=== PATIENT | male | born 1940 | race Caucasian/White ===

== ENCOUNTER 2022-05-01 11:22 | Inpatient (IN) ==
--- NOTE | 2022-05-01 11:27 | Emergency Department Note ---
Impression & Plan Intertrochanteric fracture of left femur, Hypertension, Fall, Acute hip pain ED Provider Note NAME: GABRIEL ALVARADO AGE: 81 SEX: M : 1940 ARRIVES VIA: Ambulance INFORMANT: Patient, ED PROVIDER(S): Oli Felder MD Chief Complaint: Fall, hip pain HPI: Patient presents due to concern for fall and hip pain. The patient states that this occurred earlier today where he had been working was putting ladders o nto his vehicle and when he turned around he believes that his foot may have got caught on something and then fell to his left side. The patient denies any head strike or LOC. The patient was unable to get up or ambulate after the fall. The patient denies any prior history of any orthopedic surgery. Patient has no chest pain head neck back or abdominal pain. No nausea vomiting. The patient d oes not take any blood thinning medications. The patient did not take any thing for pain prior to arrival. The patient does have pain localized to the hip and proximal thigh. Patient states he has decreased range of motion secondary to pain. ROS: See HPI for pertinent positives and negatives. A total of 10 systems were reviewed and otherwise negative. Past medical history: See below Surgical history: See below Social history: See below Physical Exam: GENERAL: NAD, wearing a mask, non-toxic. EYE EXAM: Normal conjunctiva. PERRL, no anisocoria and EOM's grossly intact w/o pain. Head: Normocephalic atraumatic. NECK: Supple, no nuchal rigidity, no adenopathy, non-tender. No signs of me ningismus. FROM of the neck with good chin to chest and neck extension. No stridor. No midline cervical spine TTP. LUNGS: Clear to auscultation. Normal chest wall mechanics. HEART: NSR, no MRG. ABDOMEN: Abdomen soft, non-tender, normo-active bowel sounds, no masses, no rebound or guarding. BACK: No CVA TTP. SKIN: No rashes and no bruising. UPPER EXTREMITIES: Upper extremities are grossly normal. No TTP or obvious deformity. LOWER EXTREMITIES: Increased welling to the left proximal thigh with associated TTP, mild leg length discrepancy with left leg slightly shorter than the right, good DP pulse and neurovascular intact distally to SP DP and tibialis nerves. Wiggles toes with no issue. No right lower extremity TTP NEURO EXAM: A&O x3, cranial nerves II-XII grossly intact, normal speech, moves all 4 extremities. Differential diagnoses: Fracture, subluxation, dislocation, contusion, lig amentous injury, neurovascular, compartment syndrome, rhabdomyolysis, as well as other pathologies. Course: Patient was seen and evaluated the bedside. Full history physical exam was performed. EKG interpreted by me Sinus bradycardia with first-degree AV block, rate 56, prolonged MN, normal QRS, normal axis no ST elevations. Imaging Studies: See Below Cardiac monitoring: An order was placed for continuous cardiac monitoring. The monitor shows a rate of 62 with sinus rhythm. MDM: Patient presents due to concern for a fall. The patient does have a likely hip fracture. Blood work was obtained and the patient was ordered IV pain medication. Patient was noted to have a left-sided hip fracture. I did speak with Dr. Shelby with [facility] to make him aware that the pat ient would be admitted for his hip fracture. I did speak the on-call hospitalist service Sweta Jones PA-C and the patient was admitted by Dr. Maria. Of note the patient did have desaturations into the 70s with the morphine. Patient maintained good saturations on 2 L nasal cannula the patient still wanted something for pain and was given IV Tylenol. Past Med/Surg History Medical History Dyslipidemia History of CVA (cerebrovascular accident) History of PSVT (paroxysmal supraventricular tachycardia) Hx of aortic valve stenosis Hypertension Paroxysmal A-fib Surgical History No pertinent past surgical history Social History Smoking Status: Never smoker Hx Alcohol Use: Yes Alcohol type: beer Hx Substance Use: No Preferred Language: Swiss Communication Ability: Effective Weight Analyst Required: No Beliefs That Will Affect Care: None Current Living Situation: Spouse Feels Safe at Home: Yes Assistive Devices: Denture - Upper and Denture - Lower Allergies Allergies Allergy/AdvReac Type Severity Reaction Status Date / Time No Known Allergies Allergy Verified 12/12/20 08:55 Home Meds Home Medications Medication Instructions Recorded Confirmed atorvastatin 20 mg tablet 20 mg PO DAILY 12/12/20 05/01/22 hydrochlorothiazide 12.5 mg tablet 12.5 mg PO DAILY 12/12/20 05/01/22 multivitamin 1 tab DAILY 12/12/20 05/01/22 L.acidophil-L.casei-B.bifid-B.longum-FOS 1 cap PO DAILY 05/01/22 05/01/22 2 billion cell-50 mg capsule (Probiotic Blend) amoxicillin 500 mg capsule 2,000 mg PO UD PRN Other 05/01/22 05/01/22 aspirin 81 mg tablet,delayed 81 mg PO DAILY 05/01/22 05/01/22 release losartan 50 mg tablet 50 mg PO DAILY 05/01/22 05/01/22 metoprolol tartrate 25 mg tablet 12.5 mg PO DAILY 05/01/22 05/01/22 omeprazole 20 mg capsule,delayed 40 mg PO DAILY 05/01/22 05/01/22 release Results & Data (ED) Vital Signs Vital Signs - 24 hr 05/01/22 11:32 05/01/22 14:00 05/01/22 14:00 Temperature 36.9 C Temperature Source Oral Pulse Rate 56 L 56 L Pulse Rate from SpO2 Sensor 56 L Pulse Rhythm Regular Pulse Strength Normal Respiratory Rate 20 20 Respiratory Effort / Characteristics Non-Labored Spontaneous Respiratory Depth Normal Respiratory Pattern Regular Blood Pressure 184/72 H 197/74 H Blood Pressure Mean 109 115 Blood Pressure Position Sitting Pulse Oximetry 97 99 Oxygen Delivery Method Room Air Nasal Cannula Oxygen Flow Rate 4 Sepsis Recent Fever Within 48 Hours No Sepsis New/Unexplained Change in Mental Status No Sepsis Action Taken by Nursing No Action Required 05/01/22 14:31 05/01/22 14:31 05/01/22 15:02 Temperature Temperature Source Pulse Rate 52 L Pulse Rate from SpO2 Sensor 51 L Pulse Rhythm Pulse Strength Respiratory Rate 10 L Respiratory Effort / Characteristics Respiratory Depth Respiratory Pattern Blood Pressure 147/59 H 193/69 H Blood Pressure Mean 88 110 Blood Pressure Position Pulse Oximetry 100 Oxygen Delivery Method Nasal Cannula Oxygen Flow Rate 4 Sepsis Recent Fever Within 48 Hours Sepsis New/Unexplained Change in Mental Status Sepsis Action Taken by Nursing 05/01/22 15:02 05/01/22 15:30 05/01/22 15:30 Temperature Temperature Source Pulse Rate 56 L 60 Pulse Rate from SpO2 Sensor 56 L 59 L Pulse Rhythm Pulse Strength Respiratory Rate 18 18 Respiratory Effort / Characteristics Respiratory Depth Respiratory Pattern Blood Pressure 201/97 H Blood Pressure Mean 131 Blood Pressure Position Pulse Oximetry 100 95 Oxygen Delivery Method Oxygen Flow Rate Sepsis Recent Fever Within 48 Hours Sepsis New/Unexplained Change in Mental Status Sepsis Action Taken by Nursing 05/01/22 16:01 05/01/22 16:01 05/01/22 16:31 Temperature Temperature Source Pulse Rate 59 L 56 L Pulse Rate from SpO2 Sensor 60 57 L Pulse Rhythm Pulse Strength Respiratory Rate 12 12 Respiratory Effort / Characteristics Respiratory Depth Respiratory Pattern Blood Pressure 153/90 H Blood Pressure Mean 111 Blood Pressure Position Pulse Oximetry 99 99 Oxygen Delivery Method Nasal Cannula Oxygen Flow Rate 2 Sepsis Recent Fever Within 48 Hours Sepsis New/Unexplained Change in Mental Status Sepsis Action Taken by Nursing 05/01/22 16:31 Temperature Temperature Source Pulse Rate Pulse Rate from SpO2 Sensor Pulse Rhythm Pulse Strength Respiratory Rate Respiratory Effort / Characteristics Respiratory Depth Respiratory Pattern Blood Pressure 181/92 H Blood Pressure Mean 121 Blood Pressure Position Pulse Oximetry Oxygen Delivery Method Oxygen Flow Rate Sepsis Recent Fever Within 48 Hours Sepsis New/Unexplained Change in Mental Status Sepsis Action Taken by Usp Medications Current Medication List: was personally reviewed by me Laboratory Data Attestation: I reviewed the patient's lab results. Result diagrams: 05/01/22 12:10 05/01/22 12:10 Lab Results 05/01/22 05/01/22 05/01/22 Range/Units 12:10 12:10 12:10 WBC 9.98 (4.8-10.8) K/ul RBC 3.68 L (4.63-6.08) M/uL Hgb 11.5 L (14.0-18.0) g/dl Hct 34.4 L (40.1-51.0) % MCV 93.5 (80.0-100.0) fL MCH 31.3 (25.0-34.0) pg MCHC 33.4 (32.0-36.0) g/dL RDW Std Deviation 40.8 (36.4-46.3) fL RDW Coeff of Jt 12.0 (11.5-14.5) % Plt Count 206 (130-400) K/uL MPV 9.4 (9.4-12.4) fL Immature Gran % (Auto) 0.4 % Neut % (Auto) 66.6 % Lymph % (Auto) 19.0 % Donley % (Auto) 10.2 % Eos % (Auto) 3.4 % Baso % (Auto) 0.4 % Neut # (Auto) 6.64 H (1.4-6.5) K/uL Lymph # (Auto) 1.90 (1.2-3.4) K/uL Donley # (Auto) 1.02 H (0.24-0.82) K/uL Eos # (Auto) 0.34 (0-0.50) K/uL Baso # (Auto) 0.04 (0-0.2) K/uL Immature Gran # (Auto) 0.04 H (0.00-0.02) K/uL PT 10.5 (9.0-12.0) Seconds INR 1.0 (0.9-1.1) APTT 25.4 (21.0-31.0) Seconds PTT Ratio 0.9 Sodium 137 (136-145) mmol/L Potassium 4.1 (3.5-5.1) mmol/L Chloride 103 (98-107) mmol/L Carbon Dioxide 30 (21-32) mmol/L Anion Gap 4 (3-11) BUN 27 H (6-23) mg/dl Creatinine 1.31 (0.6-1.4) mg/dl Est Cr Clr Drug Dosing 45.7 ml/min Est GFR ( Amer) 58.8 ml/min Est GFR (Non-Af Amer) 50.7 ml/min BUN/Creatinine Ratio 20.6 H (10-20) Glucose 96 (70-99(Fasting)) mg/dl Calcium 9.1 (8.5-10.1) mg/dl Total Bilirubin 0.5 (0.2-1.0) mg/dl AST 20 (13-39) U/L ALT 14 (7-52) U/L Alkaline Phosphatase 75 (34-104) U/L Total Protein 7.2 (6.0-8.3) gm/dl Albumin 4.0 (3.4-5.0) gm/dl Globulin 3.2 (2.5-4.0) gm/dl Albumin/Globulin Ratio 1.3 (0.9-2) Urine Color Urine Appearance (Clear) Urine pH (4.5-7.5) Ur Specific [place] (1.000-1.030) Urine Protein (Negative) Urine Glucose (UA) (Negative) Urine Ketones (Negative) Urine Blood (Negative) Urine Nitrite (Negative) Urine Bilirubin (Negative) Urine Urobilinogen (Negative) Ur Leukocyte Esterase (Negative) SARS-CoV-2, RNA, NAAT (NEGATIVE) 05/01/22 05/01/22 Range/Units 13:26 13:50 WBC (4.8-10.8) K/ul RBC (4.63-6.08) M/uL Hgb (14.0-18.0) g/dl Hct (40.1-51.0) % MCV (80.0-100.0) fL MCH (25.0-34.0) pg MCHC (32.0-36.0) g/dL RDW Std Deviation (36.4-46.3) fL RDW Coeff of Jt (11.5-14.5) % Plt Count (130-400) K/uL MPV (9.4-12.4) fL Immature Gran % (Auto) % Neut % (Auto) % Lymph % (Auto) % Donley % (Auto) % Eos % (Auto) % Baso % (Auto) % Neut # (Auto) (1.4-6.5) K/uL Lymph # (Auto) (1.2-3.4) K/uL Donley # (Auto) (0.24-0.82) K/uL Eos # (Auto) (0-0.50) K/uL Baso # (Auto) (0-0.2) K/uL Immature Gran # (Auto) (0.00-0.02) K/uL PT (9.0-12.0) Seconds INR (0.9-1.1) APTT (21.0-31.0) Seconds PTT Ratio Sodium (136-145) mmol/L Potassium (3.5-5.1) mmol/L Chloride (98-107) mmol/L Carbon Dioxide (21-32) mmol/L Anion Gap (3-11) BUN (6-23) mg/dl Creatinine (0.6-1.4) mg/dl Est Cr Clr Drug Dosing ml/min Est GFR ( Amer) ml/min Est GFR (Non-Af Amer) ml/min BUN/Creatinine Ratio (10-20) Glucose (70-99(Fasting)) mg/dl Calcium (8.5-10.1) mg/dl Total Bilirubin (0.2-1.0) mg/dl AST (13-39) U/L ALT (7-52) U/L Alkaline Phosphatase (34-104) U/L Total Protein (6.0-8.3) gm/dl Albumin (3.4-5.0) gm/dl Globulin (2.5-4.0) gm/dl Albumin/Globulin Ratio (0.9-2) Urine Color Yellow Urine Appearance Clear (Clear) Urine pH 6.5 (4.5-7.5) Ur Specific [place] 1.016 (1.000-1.030) Urine Protein Negative (Negative) Urine Glucose (UA) Negative (Negative) Urine Ketones Negative (Negative) Urine Blood Negative (Negative) Urine Nitrite Negative (Negative) Urine Bilirubin Negative (Negative) Urine Urobilinogen Negative (Negative) Ur Leukocyte Esterase Negative (Negative) SARS-CoV-2, RNA, NAAT NEGATIVE (NEGATIVE) Administered Medications Discontinued Medications Acetaminophen (Acetaminophen 1000 Mg/100 Ml Iv) Confirm Administered Dose 1,000 mg IV .Tangler-MED ONE Stop: 05/01/22 14:48 Last Admin: 05/01/22 14:54 Dose: 1,000 mg Documented By: MARTA Acetaminophen (Ofirmev) 1,000 mg in 100 mls @ 400 mls/hr IV NOW STA Stop: 05/01/22 15:11 Last Admin: 05/01/22 15:33 Dose: Not Given Documented By: MARTA Morphine Sulfate (Morphine Sulfate 4 Mg/Ml 1 Ml Carp\Vial) 4 mg IV NOW STA Stop: 05/01/22 11:52 Last Admin: 05/01/22 12:23 Dose: 4 mg Documented By: MARTA Imaging Data Radiologist's Impression: Hip/Pelvis X-Ray 05/01/22 11:51 XR hip LT 2V w pelvis CLINICAL HISTORY: fall, hp pain TECHNIQUE: 2 views of the left hip and single frontal view of the pelvis were obtained. Comparison: None available at the time of this dictation. FINDINGS: There is a fracture of the proximal femoral shaft which may be intertrochanteric. There is apex lateral angulation. Degenerative changes are seen in the hip joint. Soft tissue swelling is seen. IMPRESSION: Left femoral shaft/intratrochanteric fracture with surrounding soft tissue swelling. ACT 112: Negative or not required by law. Electronically signed by: Calvin Mckee M.D. 05/01/2022 1:38 PM Chest X-Ray 05/01/22 13:22 XR chest 1V not portable HISTORY: Fall. Preop. Left hip fracture. COMPARISON: Chest 11/14/2017. FINDINGS: No pneumothorax. No pleural effusions. The lungs are clear. Old, healed bilateral rib fractures. Mild elevation of the right hemidiaphragm. An aortic valve prosthesis is again noted. Old, healed bilateral rib fractures. IMPRESSION: No acute process. ACT 112: Negative or not required by law. Electronically signed by: Jonas Viramontes M.D. 05/01/2022 1:39 PM Discharge Plan Visit Data Chief Complaint: Fall Stated Complaint: FALL, L HIP & LEG PAIN ED Provider: Oli Felder Patient Disposition: Admitted As Inpatient Prescriptions Prescriptions: No Action multivitamin Tablet 1 tab DAILY atorvastatin 20 mg Tablet 20 mg PO DAILY hydrochlorothiazide 12.5 mg Tablet 12.5 mg PO DAILY losartan 50 mg tablet 50 mg PO DAILY amoxicillin 500 mg Capsule 2,000 mg PO UD PRN (Reason: Other) Rx Instructions: Takes prior to dental procedures aspirin 81 mg Tablet,Delayed Release (Dr/Ec) 81 mg PO DAILY omeprazole 20 mg capsule,delayed release(DR/EC) 40 mg PO DAILY metoprolol tartrate 25 mg tablet 12.5 mg PO DAILY Probiotic Blend 2 billion cell-50 mg Capsule 1 cap PO DAILY
[2022-05-01] MEDS ORDERED: MoRPHine SULFATE 4 MG/ML 1 ML CARP\\VIAL IV STA (11:51)
[2022-05-01 12:32] LABS: Basophils # (auto) 0.04 K/uL (0-0.2); Basophils % (auto) 0.4 %; Eosinophils # (auto) 0.34 K/uL (0-0.50); Eosinophils % (auto) 3.4 %; Hematocrit (blood only) 34.4 % (40.1-51.0); Hemoglobin 11.5 g/dl (14.0-18.0); Immature Granulocytes # (auto) 0.04 K/uL (0.00-0.02); Immature Granulocytes % (auto) 0.4 %; Mean Corpuscular Hemoglobin 31.3 pg (25.0-34.0); Mean Corpuscular Hgb Conc 33.4 g/dL (32.0-36.0); Mean Corpuscular Volume 93.5 fL (80.0-100.0); Mean Platelet Volume 9.4 fL (9.4-12.4); Monocytes # (auto) 1.02 K/uL (0.24-0.82); Monocytes % (auto) 10.2 %; Neutrophils # (auto) 6.64 K/uL (1.4-6.5); Neutrophils % (auto) 66.6 %; Platelet Count 206 K/uL (130-400); RDW Standard Deviation 40.8 fL (36.4-46.3); Red Blood Count 3.68 M/uL (4.63-6.08); White Blood Count 9.98 K/ul (4.8-10.8)
[2022-05-01 12:49] LABS: Partial Thromboplastin Ratio 0.9; Partial Thromboplastin Time 25.4 Seconds (21.0-31.0); Prothrombin Time 10.5 Seconds (9.0-12.0)
[2022-05-01 12:55] LABS: Albumin Globulin Ratio 1.3 (0.9-2); BUN Creatinine Ratio 20.6 (10-20); Bilirubin,Total 0.5 mg/dl (0.2-1.0); Calcium 9.1 mg/dl (8.5-10.1); Creatinine Clr Calc Pharmacy 45.7 ml/min; Est GFR (African American) 58.8 ml/min; Est GFR (Non-African American) 50.7 ml/min; Globulin 3.2 gm/dl (2.5-4.0); Potassium 4.1 mmol/L (3.5-5.1); Total Protein 7.2 gm/dl (6.0-8.3)
--- NOTE | 2022-05-01 13:40 | XRay Report ---
XR chest 1V not portable HISTORY: Fall. Preop. Left hip fracture. COMPARISON: Chest 11/14/2017. FINDINGS: No pneumothorax. No pleural effusions. The lungs are clear. Old, healed bilateral rib fract ures. Mild elevation of the right hemidiaphragm. An aortic valve prosthesis is again noted. Old, heal ed bilateral rib fractures. IMPRESSION: No acute process. ACT 112: Negative or not required by law. Electronically signed by: Jonas Viramontes M.D. 05/01/2022 1:39 PM
--- NOTE | 2022-05-01 13:40 | XRay Report ---
XR hip LT 2V w pelvis CLINICAL HISTORY: fall, hp pain TECHNIQUE: 2 views of the left hip and single frontal view of the pelvis were obtained. Comparison: None available at the time of this dictation. FINDINGS: There is a fracture of the proximal femoral shaft which may be intertrochanteric. There is apex later al angulation. Degenerative changes are seen in the hip joint. Soft tissue swelling is seen. IMPRESSION: Left femoral shaft/intratrochanteric fracture with surrounding soft tissue swelling. ACT 112: Negative or not required by law. Electronically signed by: Calvin Mckee M.D. 05/01/2022 1:38 PM
[2022-05-01 14:20] LABS: Appearance Urine Clear (Clear); Bilirubin Urine Negative (Negative); Blood Urine Negative (Negative); Color Urine Yellow; Glucose Urine UA Negative (Negative); Ketones Urine Negative (Negative); Leukocyte Esterase Urine Negative (Negative); Nitrite Urine Negative (Negative); Protein Urine Negative (Negative); Specific Gravity Urine 1.016 (1.000-1.030); Urobilinogen Urine Negative (Negative); pH Urine 6.5 (4.5-7.5)
--- NOTE | 2022-05-01 14:43 | History & Physical Report ---
Date of Service May 01, 2022 Assessment & Plan (1) Intertrochanteric fracture of left femur: Plan: Patient is 81 y/o M with PMH CAD, aortic stenosis s/p TAVR in 02/2021, HTN, HLD, CVA, carotid disease s/p bilateral carotid endarterectomy presented to ER with complaint of mechanical fall and left hip pain. Hip/Pelvis Xray: Left femoral shaft/intratrochanteric fracture with surrounding soft tissue swelling In ER given morphine, IV Tylenol NPO midnight Schaefer cath in place Ortho consult. Plan surgical procedure 05/02/22 CBC, BMP in am (2) Hx of aortic valve stenosis: (3) History of transcatheter aortic valve replacement (TAVR): Plan: H/O TAVR in 02/2021 (4) History of CVA (cerebrovascular accident): Plan: History CVA in 1996 Hold aspirin tomorrow in pre-op prep Continue atorvastatin (5) CAD (coronary artery disease): Plan: non-obstructive per cardiac cath in 12/2020 Continue atorvastatin, metoprolol tartrate Plan to resume aspirin post-op (6) Hypertension: Plan: initially hypertensive in ER. SBP improved to 140's after pain medication Suspect elevated secondary to pain Hold HCTZ Continue metoprolol tartrate, losartan (7) Carotid stenosis: Plan: S/P bilateral carotid endarterectomy DVT Prophylaxis SCDs DNR/DNI as per discussion with pt Follows with Dr Man for routine care Pt was seen and care coordinated with Dr Maria. See addendum History of Present Illness Chief Complaint: left hip pain Primary Care Provider: Gretta Man MD Patient is 81 y/o M with PMH CAD, aortic stenosis s/p TAVR in 02/2021, HTN, HLD, CVA, carotid disease s/p bilateral carotid endarterectomy presented to ER with complaint of fall and left hip pain. Patient states today was carrying ladder and put ladder on ground and stepped back and lost balance falling on to left side. Was unable to get up or put weight on left leg. Denies hitting head, dizziness, CP, SOB. Denies any other injury. Patient reports at baseline is very active. He works and has his own [employer] business, also has [employer]. Denies fever/chills, diaphoresis, N/V/D/C, LIRIANO, dizziness, syncope, vision changes, neck pain, CP, SOB, orthopnea, palpitations, cough, sore throat, choking, otalgia, rhinorrhea, abdominal pain, paresthesias, extremity edema, rashes, urinary symptoms. Allergies Allergy/AdvReac Type Severity Reaction Status Date / Time No Known Allergies Allergy Verified 12/12/20 08:55 Home Medications Medication Instructions Recorded Confirmed Type atorvastatin 20 mg tablet 20 mg PO DAILY 12/12/20 05/01/22 History hydrochlorothiazide 12.5 mg tablet 12.5 mg PO DAILY 12/12/20 05/01/22 History multivitamin 1 tab DAILY 12/12/20 05/01/22 History L.acidophil-L.casei-B.bifid-B.longum-FOS 1 cap PO DAILY 05/01/22 05/01/22 History 2 billion cell-50 mg capsule (Probiotic Blend) amoxicillin 500 mg capsule 2,000 mg PO UD PRN Other 05/01/22 05/01/22 History aspirin 81 mg tablet,delayed 81 mg PO DAILY 05/01/22 05/01/22 History release losartan 50 mg tablet 50 mg PO DAILY 05/01/22 05/01/22 History metoprolol tartrate 25 mg tablet 12.5 mg PO DAILY 05/01/22 05/01/22 History omeprazole 20 mg capsule,delayed 40 mg PO DAILY 05/01/22 05/01/22 History release Past Med/Surg History Medical History (Updated 05/01/22 @ 20:43 by Nancy Jones PA-C) CAD (coronary artery disease) Carotid stenosis Dyslipidemia History of CVA (cerebrovascular accident) History of PSVT (paroxysmal supraventricular tachycardia) History of transcatheter aortic valve replacement (TAVR) Hx of aortic valve stenosis Hypertension Paroxysmal A-fib Surgical History (Updated 05/01/22 @ 19:57 by Nancy Jones PA-C) History of carotid endarterectomy Family History (Updated 05/01/22 @ 19:58 by Nancy Jones PA-C) Other Cancer Social History (Updated 05/01/22 @ 19:58 by Nancy Jones PA-C) Smoking Status: Never smoker Hx Alcohol Use: Yes Alcohol type: beer Alcohol Intake Frequency: Monthly or Less Hx Substance Use: No Preferred Language: Citizen Of [place] Communication Ability: Effective Tow Operator Required: No Beliefs That Will Affect Care: None Current Living Situation: Spouse Other Information That Helps Us Care for You: No Feels Safe at Home: Yes Safety Concerns: Feels Safe At This Time Assistive Devices: Cane and Walker Review of Systems Review of Systems: All systems reviewed & are unremarkable except as noted in HPI & below Physical Exam Physical Exam: General: no distress, WDWN Head: normocephalic, atraumatic Eyes: conjunctiva non-injected, anicteric ENT: normal inspection external ears, nose, mucous membranes moist Neck: supple, trachea midline Lungs: clear, no respiratory distress, no wheezing/rhonchi/rales CV: RRR, + murmur, no pretibial edema Abd: normal BS, soft, non-tender Ext: no cyanosis, no calf tenderness; LLE: +edema to left hip and proximal leg. +tenderness to palpation anteiror and lateral proximal leg. No ROM tested. Distal pulses intact, sensation to light touch intact. Remaining extremities with ROM intact Neuro: A&O x 3, no focal deficits noted, normal affect Skin: warm, dry Results & Data Results & Data ([facility]) Vital Signs (Past 12 Hours) Vital Signs Temp Pulse Resp BP Pulse Ox O2 Del Method O2 Flow Rate 05/01/22 14:00 56 L 20 99 Nasal Cannula 4 05/01/22 14:00 197/74 H 05/01/22 11:32 36.9 C 56 L 20 184/72 H 97 Room Air Laboratory Results Short CBC 05/01/22 Range/Units 12:10 WBC 9.98 (4.8-10.8) K/ul Hgb 11.5 L (14.0-18.0) g/dl Hct 34.4 L (40.1-51.0) % Plt Count 206 (130-400) K/uL BMP 05/01/22 12:10 Sodium 137 Potassium 4.1 Chloride 103 Carbon Dioxide 30 BUN 27 H Creatinine 1.31 Glucose 96 Calcium 9.1 Liver Function 05/01/22 Range/Units 12:10 Total Bilirubin 0.5 (0.2-1.0) mg/dl AST 20 (13-39) U/L ALT 14 (7-52) U/L Alkaline Phosphatase 75 (34-104) U/L Albumin 4.0 (3.4-5.0) gm/dl Urine 05/01/22 Range/Units 13:50 Urine Color Yellow Urine Appearance Clear (Clear) Urine pH 6.5 (4.5-7.5) Ur Specific [place] 1.016 (1.000-1.030) Urine Protein Negative (Negative) Urine Glucose (UA) Negative (Negative) Diagnostic Findings Hip/Pelvis X-Ray 05/01/22 11:51 XR hip LT 2V w pelvis CLINICAL HISTORY: fall, hp pain TECHNIQUE: 2 views of the left hip and single frontal view of the pelvis were obtained. Comparison: None available at the time of this dictation. FINDINGS: There is a fracture of the proximal femoral shaft which may be intertrochanteric. There is apex lateral angulation. Degenerative changes are seen in the hip joint. Soft tissue swelling is seen. IMPRESSION: Left femoral shaft/intratrochanteric fracture with surrounding soft tissue swelling. ACT 112: Negative or not required by law. Electronically signed by: Calvin Mckee M.D. 05/01/2022 1:38 PM Chest X-Ray 05/01/22 13:22 XR chest 1V not portable HISTORY: Fall. Preop. Left hip fracture. COMPARISON: Chest 11/14/2017. FINDINGS: No pneumothorax. No pleural effusions. The lungs are clear. Old, healed bilateral rib fractures. Mild elevation of the right hemidiaphragm. An aortic valve prosthesis is again noted. Old, healed bilateral rib fractures. IMPRESSION: No acute process. ACT 112: Negative or not required by law. Electronically signed by: Jonas Viramontes M.D. 05/01/2022 1:39 PM Supervising Physician Co-Signing Physician Notes 81 yo M presented with inability to walk after a fall, found to have a left intertrochanteric hip fracture. He recently had another trauma a few weeks back sustaining fractures of the left superior and inferior pubic rami. He was ambulatory while these were healing. He reports being very active, having just solid his [employer] business last month. He has a history of TAVR and recently saw cardiology as outpatient and is doing well. He requires preop antibiotics for his valve. He denies any issues with chest pain, SOB or other symptoms. He denies any history of problems with anesthesia. Physical exam reveals a WNWD man in no acute distress. Heart exam reveals S1/2 without murmurs and regular rate and rhythm is observed. Lungs are clear to auscultation throughout. Abdomen is soft NTND, and skin is warm and dry. He has no neurologic deficits. Lower extremities are warm and well perfused. Workup reveals no leukocytosis, mild anemia that is at his baseline (11.5/34.4). BMP is within normal limits with a creatinine at baseline of 1.3. UA is clear. CXR is clear. Hip and pelvis xray reveals left femoral shaft/intertrochanteric fracture with surrounding soft tissue swelling. 81 yo M with left hip fracture after a fall. Cont supportive care efforts and likely surgery per ortho either tonight or tomorrow morning. Should proceed to surgery with typical perioperative risk. Cont preoperative antibiotics in setting of prosthetic heart valve. Standard DVT prophylaxis recommended. Additional management as listed above. Would exercise caution with any intravenous narcotics given his hypoxia after morphine given in the ER this evening. DO Crow
[2022-05-01] MEDS ORDERED: ACETAMINOPHEN 1000 MG/100 ML IV IV ONE (14:47)
[2022-05-01] MEDS ORDERED: ACETAMINOPHEN 1,000 MG/100 ML VIAL IV STA (14:57)
--- NOTE | 2022-05-01 15:42 | Orthopedic Consultation ---
Date of Consultation May 01, 2022 Assessment & Plan (1) Intertrochanteric fracture of left femur: Comminuted left intertrochanteric hip fracture. I have discussed the case with Dr. Shelby. Plans will be for taking the patient to the operating room tomorrow afternoon for a left trochanteric femoral nailing. I have discussed this with the patient and his . All questions answered to the best my abilities. Patient may eat tonight and will need to be n.p.o. after midnight. This will be relayed to the medicine service as well. Supervising Physician Co-Signing Physician Notes Patient seen and examined. Agree with LEON Salamanca's note as above. Patient with a left hip intertrochanteric/subtrochanteric femur fracture. This will require long cephalomedullary nailing. Risks, benefits, and alternatives of surgery were explained in detail. The surgical procedure, as well as postoperative recovery and rehabilitation, was also explained in detail. Risks include bleeding; infection; damage to surrounding structures such as nerves, blood vessels, and tendons that run in the area; persistent pain or stiffness; nonunion; malunion; hardware failure; painful prominent hardware requiring removal; or need for further surgery. The patient understands all of this and wishes to proceed with surgery. Informed consent was obtained. History of Present Illness Reason for Consultation: Left intertrochanteric hip fracture History of Present Illness Patient is an 81-year-old male who had a mechanical fall today. The patient [place] He apparently was working with some ladders. He had put a letter down on the ground. As he pivoted to turn he lost his balance and fell onto his left side. He states he tried to get up and ambulate but was unable to secondary to pain in his left hip and groin and the inability to move the leg. He denies hitting his head. He denies losing consciousness. There was no shortness of breath, chest pain, lightheadedness prior to or after the fall. He was brought to [facility] emergency room by the squad and he was seen by the staff here. X-rays were taken and was found that he had a intertrochanteric left hip fracture. He was admitted for further care by the [facility] service and we have been asked to take care of him for his hip fracture. Currently he is lying in bed awake and alert. He appears comfortable. No new complaints since his fall. Allergies Allergy/AdvReac Type Severity Reaction Status Date / Time No Known Allergies Allergy Verified 12/12/20 08:55 Home Medications Medication Instructions Recorded Confirmed Type atorvastatin 20 mg tablet 20 mg PO DAILY 12/12/20 05/01/22 History hydrochlorothiazide 12.5 mg tablet 12.5 mg PO DAILY 12/12/20 05/01/22 History multivitamin 1 tab DAILY 12/12/20 05/01/22 History L.acidophil-L.casei-B.bifid-B.longum-FOS 1 cap PO DAILY 05/01/22 05/01/22 History 2 billion cell-50 mg capsule (Probiotic Blend) amoxicillin 500 mg capsule 2,000 mg PO UD PRN Other 05/01/22 05/01/22 History aspirin 81 mg tablet,delayed 81 mg PO DAILY 05/01/22 05/01/22 History release losartan 50 mg tablet 50 mg PO DAILY 05/01/22 05/01/22 History metoprolol tartrate 25 mg tablet 12.5 mg PO DAILY 05/01/22 05/01/22 History omeprazole 20 mg capsule,delayed 40 mg PO DAILY 05/01/22 05/01/22 History release Patient History Medical History (Updated 05/01/22 @ 20:43 by Nancy Jones PA-C) CAD (coronary artery disease) Carotid stenosis Dyslipidemia History of CVA (cerebrovascular accident) History of PSVT (paroxysmal supraventricular tachycardia) History of transcatheter aortic valve replacement (TAVR) Hx of aortic valve stenosis Hypertension Paroxysmal A-fib Surgical History (Updated 05/01/22 @ 19:57 by Nancy Jones PA-C) History of carotid endarterectomy Family History (Updated 05/01/22 @ 19:58 by Nancy Jones PA-C) Other Cancer Social History (Updated 05/01/22 @ 19:58 by Nancy Jones PA-C) Smoking Status: Never smoker Hx Alcohol Use: Yes Alcohol type: beer Alcohol Intake Frequency: Monthly or Less Hx Substance Use: No Preferred Language: Turkish Communication Ability: Effective 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 He is alert and oriented x3. No acute distress. Pleasant cooperative. On examination of his left lower extremity, his left lower extremity is shortened and externally rotated compared to his right. He is able to actively plantarflex and dorsiflex the ankle without difficulty. Knee is nontender on palpation and there is no effusion noted. Range of motion deferred secondary to hip fracture. He has moderate swelling over the proximal thigh over the anterior lateral aspect. No abrasions noted. Range of motion deferred secondary to hip fracture. Slight bruising. Right lower extremity is essentially within normal limits. Range of motion appears to be intact and he has no pain at the hip, knee, ankle. Upper extremities are unaffected and he has good range of motion of the shoulders, elbows, and wrist. Without discomfort. Distal pulses are equal bilaterally of the upper extremities. There is no gross motor or sensory loss seen at this time. Results & Data ([facility]) Vital Signs (Past 12 Hours) Vital Signs Temp Pulse Resp BP Pulse Ox O2 Del Method O2 Flow Rate 05/01/22 14:00 56 L 20 99 Nasal Cannula 4 05/01/22 14:00 197/74 H 05/01/22 11:32 36.9 C 56 L 20 184/72 H 97 Room Air Laboratory Results Laboratory Results WBC 9.98 K/ul (4.8-10.8) 05/01/22 12:10 RBC 3.68 M/uL (4.63-6.08) L 05/01/22 12:10 Hgb 11.5 g/dl (14.0-18.0) L 05/01/22 12:10 Hct 34.4 % (40.1-51.0) L 05/01/22 12:10 MCV 93.5 fL (80.0-100.0) 05/01/22 12:10 MCH 31.3 pg (25.0-34.0) 05/01/22 12:10 MCHC 33.4 g/dL (32.0-36.0) 05/01/22 12:10 RDW Std Deviation 40.8 fL (36.4-46.3) 05/01/22 12:10 RDW Coeff of Jt 12.0 % (11.5-14.5) 05/01/22 12:10 Plt Count 206 K/uL (130-400) 05/01/22 12:10 MPV 9.4 fL (9.4-12.4) 05/01/22 12:10 Immature Gran % (Auto) 0.4 % 05/01/22 12:10 Neut % (Auto) 66.6 % 05/01/22 12:10 Lymph % (Auto) 19.0 % 05/01/22 12:10 [place] % (Auto) 10.2 % 05/01/22 12:10 Eos % (Auto) 3.4 % 05/01/22 12:10 Baso % (Auto) 0.4 % 05/01/22 12:10 Neut # (Auto) 6.64 K/uL (1.4-6.5) H 05/01/22 12:10 Lymph # (Auto) 1.90 K/uL (1.2-3.4) 05/01/22 12:10 [place] # (Auto) 1.02 K/uL (0.24-0.82) H 05/01/22 12:10 Eos # (Auto) 0.34 K/uL (0-0.50) 05/01/22 12:10 Baso # (Auto) 0.04 K/uL (0-0.2) 05/01/22 12:10 Immature Gran # (Auto) 0.04 K/uL (0.00-0.02) H 05/01/22 12:10 PT 10.5 Seconds (9.0-12.0) 05/01/22 12:10 INR 1.0 (0.9-1.1) 05/01/22 12:10 APTT 25.4 Seconds (21.0-31.0) 05/01/22 12:10 PTT Ratio 0.9 05/01/22 12:10 Sodium 137 mmol/L (136-145) 05/01/22 12:10 Potassium 4.1 mmol/L (3.5-5.1) 05/01/22 12:10 Chloride 103 mmol/L (98-107) 05/01/22 12:10 Carbon Dioxide 30 mmol/L (21-32) 05/01/22 12:10 Anion Gap 4 (3-11) 05/01/22 12:10 BUN 27 mg/dl (6-23) H 05/01/22 12:10 Creatinine 1.31 mg/dl (0.6-1.4) 05/01/22 12:10 Est Cr Clr Drug Dosing 45.7 ml/min 05/01/22 12:10 Est GFR ( Amer) 58.8 ml/min 05/01/22 12:10 Est GFR (Non-Af Amer) 50.7 ml/min 05/01/22 12:10 BUN/Creatinine Ratio 20.6 (10-20) H 05/01/22 12:10 Glucose 96 mg/dl (70-99(Fasting)) 05/01/22 12:10 Calcium 9.1 mg/dl (8.5-10.1) 05/01/22 12:10 Total Bilirubin 0.5 mg/dl (0.2-1.0) 05/01/22 12:10 AST 20 U/L (13-39) 05/01/22 12:10 ALT 14 U/L (7-52) 05/01/22 12:10 Alkaline Phosphatase 75 U/L (34-104) 05/01/22 12:10 Total Protein 7.2 gm/dl (6.0-8.3) 05/01/22 12:10 Albumin 4.0 gm/dl (3.4-5.0) 05/01/22 12:10 Globulin 3.2 gm/dl (2.5-4.0) 05/01/22 12:10 Albumin/Globulin Ratio 1.3 (0.9-2) 05/01/22 12:10 Urine Color Yellow 05/01/22 13:50 Urine Appearance Clear (Clear) 05/01/22 13:50 Urine pH 6.5 (4.5-7.5) 05/01/22 13:50 Ur Specific [place] 1.016 (1.000-1.030) 05/01/22 13:50 Urine Protein Negative (Negative) 05/01/22 13:50 Urine Glucose (UA) Negative (Negative) 05/01/22 13:50 Urine Ketones Negative (Negative) 05/01/22 13:50 Urine Blood Negative (Negative) 05/01/22 13:50 Urine Nitrite Negative (Negative) 05/01/22 13:50 Urine Bilirubin Negative (Negative) 05/01/22 13:50 Urine Urobilinogen Negative (Negative) 05/01/22 13:50 Ur Leukocyte Esterase Negative (Negative) 05/01/22 13:50 SARS-CoV-2, RNA, NAAT NEGATIVE (NEGATIVE) 05/01/22 13:26 Impressions Hip/Pelvis X-Ray 05/01/22 11:51 XR hip LT 2V w pelvis CLINICAL HISTORY: fall, hp pain TECHNIQUE: 2 views of the left hip and single frontal view of the pelvis were obtained. Comparison: None available at the time of this dictation. FINDINGS: There is a fracture of the proximal femoral shaft which may be intertrochanteric. There is apex lateral angulation. Degenerative changes are seen in the hip joint. Soft tissue swelling is seen. IMPRESSION: Left femoral shaft/intratrochanteric fracture with surrounding soft tissue swelling. ACT 112: Negative or not required by law. Electronically signed by: Calvin Mckee M.D. 05/01/2022 1:38 PM
[2022-05-01] MEDS ORDERED: ONDANSETRON INJ 2 MG/ML 2 ML VIAL IV PRN (17:12)
[2022-05-01] MEDS ORDERED: MoRPHine SULFATE 2 MG/ML CARP IV PRN (17:12)
[2022-05-01] MEDS ORDERED: MAGNESIUM HYDROXIDE SUSP 30 ML UDC PO PRN (17:12)
[2022-05-01] MEDS ORDERED: bisacodyL 10 MG SUPP PR PRN (17:12)
[2022-05-01] MEDS ORDERED: NALOXONE HCL 0.4 MG/1 ML VIAL/CARP IV PRN (17:12)
--- NOTE | 2022-05-01 18:11 | Anesthesiology Consultation ---
Date of Service May 01, 2022 Assessment & Plan (1) Encounter for pre-operative examination: Chart Review Chart Review: society reporter initiated History Surgery Operation Date: 05/02/22 08:20 Proposed Procedures p Left Troch Nail - Cahrly Shelby M.D. Height/Weight Height: 5 ft 10 in Weight: 80.966 kg Allergies Allergy/AdvReac Type Severity Reaction Status Date / Time No Known Allergies Allergy Verified 12/12/20 08:55 Medications Home Medications Medication Instructions Recorded Confirmed Last Taken atorvastatin 20 mg tablet 20 mg PO DAILY 12/12/20 05/01/22 05/01/22 hydrochlorothiazide 12.5 mg tablet 12.5 mg PO DAILY 12/12/20 05/01/22 05/01/22 multivitamin 1 tab DAILY 12/12/20 05/01/22 05/01/22 L.acidophil-L.casei-B.bifid-B.longum-FOS 1 cap PO DAILY 05/01/22 05/01/22 05/01/22 2 billion cell-50 mg capsule (Probiotic Blend) amoxicillin 500 mg capsule 2,000 mg PO UD PRN Other 05/01/22 05/01/22 Unknown aspirin 81 mg tablet,delayed 81 mg PO DAILY 05/01/22 05/01/22 05/01/22 release losartan 50 mg tablet 50 mg PO DAILY 05/01/22 05/01/22 05/01/22 metoprolol tartrate 25 mg tablet 12.5 mg PO DAILY 05/01/22 05/01/22 05/01/22 omeprazole 20 mg capsule,delayed 40 mg PO DAILY 05/01/22 05/01/22 05/01/22 release Past Medical History Medical History Dyslipidemia History of CVA (cerebrovascular accident) History of PSVT (paroxysmal supraventricular tachycardia) Hx of aortic valve stenosis Hypertension Paroxysmal A-fib Past Surgical History Surgical History No pertinent past surgical history Social History Smoking Status: Never smoker Hx Alcohol Use: Yes Alcohol type: beer alcohol intake frequency: holidays/special occasions only Hx Substance Use: No substance use type: does not use Physical Exam Vital Signs Last Vital Signs Temp 98.2 F 05/01/22 17:14 Pulse 58 L 05/01/22 17:14 Resp 18 05/01/22 17:14 BP 178/73 H 05/01/22 17:14 Pulse Ox 97 05/01/22 17:14 O2 Del Method 05/01/22 17:14 O2 Flow Rate 2 05/01/22 16:31 Testing Laboratory Results 05/01/22 12:10 05/01/22 12:10 PT 10.5 Seconds (9.0-12.0) 05/01/22 12:10 INR 1.0 (0.9-1.1) 05/01/22 12:10 APTT 25.4 Seconds (21.0-31.0) 05/01/22 12:10 Urine Color Yellow 05/01/22 13:50 Urine Appearance Clear (Clear) 05/01/22 13:50 Urine pH 6.5 (4.5-7.5) 05/01/22 13:50 Ur Specific [place] 1.016 (1.000-1.030) 05/01/22 13:50 Urine Protein Negative (Negative) 05/01/22 13:50 Urine Glucose (UA) Negative (Negative) 05/01/22 13:50 Urine Ketones Negative (Negative) 05/01/22 13:50 Urine Nitrite Negative (Negative) 05/01/22 13:50 Ur Leukocyte Esterase Negative (Negative) 05/01/22 13:50 Electrocardiogram Date: 05/01/22 Sinus bradycardia with 1st degree A-V block, rate 56 bpm Cannot rule out Anterior infarct , age undetermined Abnormal ECG When compared with ECG of 14-NOV-2017 21:00, Sinus rhythm has replaced Atrial fibrillation Vent. rate has decreased BY 28 BPM Chest X-Ray Date: 05/01/22 Findings: + NAD Echocardiogram 09/04/20 EF 65-69% LV wall thickness is mildly increased Severe aortic valve stenosis -mean AV gradient 30 mm Hg -EMA 1.1 cm2 Mild AV regurgitation Mild MR THe proximal ascending thoracic aorta is borderline enlarged Compared to last available study: AV systolic gradients have increased
[2022-05-01] MEDS: DOCUSATE SODIUM/SENNA 50/8.6MG TAB PO SCH (19:17)
[2022-05-01] MEDS: oxyCODONE HCL IR 5 MG TAB (IMMEDIATE RELEASE) PO PRN (19:18)
[2022-05-02] MEDS ORDERED: LACTATED RINGER'S 1,000 ML IV SCH (03:00)
[2022-05-02] MEDS: oxyCODONE HCL IR 5 MG TAB (IMMEDIATE RELEASE) PO PRN ×2 (03:29→11:58)
--- NOTE | 2022-05-02 05:38 | Electrocardiogram Report ---
Test Reason : Blood Pressure : / mmHG Vent. Rate : 056 BPM Atrial Rate : 056 BPM P-R Int : 260 ms QRS Dur : 098 ms QT Int : 456 ms P-R-T Axes : 048 083 064 degrees QTc Int : 440 ms Sinus bradycardia with 1st degree A-V block Cannot rule out Anterior infarct , age undetermined Abnormal ECG When compared with ECG of 14-NOV-2017 21:00, Sinus rhythm has replaced Atrial fibrillation Vent. rate has decreased BY 28 BPM Confirmed by Haider Quiles ([id number]) on 05/02/2022 5:37:41 AM Referred By: REFERRED SELF Confirmed By:Haider Quiles
[2022-05-02] MEDS ORDERED: ceFAZolin 2000MG 2,000 MG/15 ML SYR IV SCH (06:00)
[2022-05-02 07:12] LABS: Hematocrit (blood only) 30.4 % (40.1-51.0); Hemoglobin 10.3 g/dl (14.0-18.0); Mean Corpuscular Hemoglobin 31.3 pg (25.0-34.0); Mean Corpuscular Hgb Conc 33.9 g/dL (32.0-36.0); Mean Corpuscular Volume 92.4 fL (80.0-100.0); Mean Platelet Volume 9.5 fL (9.4-12.4); Platelet Count 184 K/uL (130-400); RDW Coefficient of Variation 12.1 % (11.5-14.5); RDW Standard Deviation 41.1 fL (36.4-46.3); Red Blood Count 3.29 M/uL (4.63-6.08); White Blood Count 10.47 K/ul (4.8-10.8)
[2022-05-02] MEDS: LOSARTAN POTASSIUM 50 MG TAB PO SCH (07:16)
[2022-05-02] MEDS: ATORVASTATIN 20 MG TAB PO SCH (07:16)
[2022-05-02] MEDS: PANTOprazole 40 MG TAB PO SCH (07:16)
[2022-05-02] MEDS: METOPROLOL TARTRATE 25 MG TAB PO SCH (07:17)
[2022-05-02 07:33] LABS: Calcium 8.4 mg/dl (8.5-10.1); Creatinine Clr Calc Pharmacy 57.5 ml/min; Est GFR (African American) 77.7 ml/min; Potassium 3.9 mmol/L (3.5-5.1)
--- NOTE | 2022-05-02 07:54 | XRay Report ---
XR femur LT 2V routine CLINICAL HISTORY: Left hip fracture, preop planning COMPARISON: Pelvis and left hip radiographs May 01, 2022 at 1:28 PM. FINDINGS: An acute comminuted displaced intertrochanteric fracture with subtrochanteric extension is noted. Lesser trochanter is displaced. This has slightly increased since prior exam. No additional a cute fractures are identified. There is no distal left femoral fracture. Healing left pubic ring frac tures are noted. IMPRESSION: 1. Acute comminuted displaced subtrochanteric/intertrochanteric fracture of the left femur. 2. Old, healing left pubic ring fractures. ACT 112: Negative or not required by law. Electronically signed by: Solomon Maloney M.D. 05/02/2022 7:53 AM
[2022-05-02] MEDS ORDERED: ACETAMINOPHEN 1,000 MG/100 ML VIAL IV ONE (09:42)
--- NOTE | 2022-05-02 11:29 | Hospitalist Progress Note ---
Date of Service May 02, 2022 Assessment & Plan (1) Intertrochanteric fracture of left femur: Plan: Patient is an 81 yr male with H/O CAD, aortic stenosis s/p TAVR in 02/2021, HTN, HLD, CVA, carotid disease s/p bilateral carotid endarterectomy presented to ER with complaint of mechanical fall and left hip pain. Communicated intertrochanteric fracture of the left femur -Hip/Pelvis Xray: Left femoral shaft/intratrochanteric fracture with surrounding soft tissue swelling Fall precautions Pain control Bowel regimen to prevent constipation Appreciate orthopedics input Plan for left hip surgery today (2) Hx of aortic valve stenosis: (3) History of transcatheter aortic valve replacement (TAVR): Plan: H/O TAVR in 02/2021 Continue home medications (4) History of CVA (cerebrovascular accident): Plan: History CVA in 1996 Resume Aspirin as able Continue atorvastatin (5) CAD (coronary artery disease): Plan: Non-obstructive per cardiac cath in 12/2020 Continue atorvastatin, metoprolol Resume aspirin as able (6) Hypertension: Plan: Hold HCTZ for now Continue metoprolol, losartan (7) Carotid stenosis: Plan: S/P bilateral carotid endarterectomy DVT Px SCDs for now Code Status DNR/DNI Admission and Anticipated Discharge Date Admission Date: May 01, 2022 Subjective Patient is seen and examined at bedside Complains of left hip pain, swelling No other complaints Denies any chest pain, dyspnea, dizziness, nausea, abdominal pain Discussed with patient's family at bedside Review of Systems Review of Systems: All systems reviewed & are unremarkable except as noted in Subjective Physical Exam Physical Exam: Physical Exam: Vitals signs as noted above General Appearance:Moderately built and nourished, no apparent distress Head: normocephalic, Atraumatic Eyes: normal inspection, EOMI Neck: supple, Trachea midline Respiratory/Chest: Normal breath sounds, CTA, No accessory muscle use Cardiovascular: S1, S2, No murmur Abdomen/GI:Soft, Non tender, Bowel sounds present Extremities/Musculoskeletal: Left hip swelling, tenderness, decreased range of movement, left lower extremity shortened Neurologic/Psych:AAOX3, grossly no focal neurological deficits Skin: normal color, warm Results & Data Results & Data ([facility]) Vital Signs (Past 12 Hours) Vital Signs Temp Pulse Resp BP Pulse Ox O2 Del Method 05/02/22 07:37 Room Air 05/02/22 06:09 36.7 C 75 16 119/62 96 Room Air Laboratory Results Short CBC 05/01/22 05/02/22 Range/Units 12:10 06:42 WBC 9.98 10.47 (4.8-10.8) K/ul Hgb 11.5 L 10.3 L (14.0-18.0) g/dl Hct 34.4 L 30.4 L (40.1-51.0) % Plt Count 206 184 (130-400) K/uL BMP 05/01/22 05/02/22 12:10 06:42 Sodium 137 135 L Potassium 4.1 3.9 Chloride 103 102 Carbon Dioxide 30 29 BUN 27 H 25 H Creatinine 1.31 1.04 Glucose 96 119 H Calcium 9.1 8.4 L Liver Function 05/01/22 Range/Units 12:10 Total Bilirubin 0.5 (0.2-1.0) mg/dl AST 20 (13-39) U/L ALT 14 (7-52) U/L Alkaline Phosphatase 75 (34-104) U/L Albumin 4.0 (3.4-5.0) gm/dl Urine 05/01/22 Range/Units 13:50 Urine Color Yellow Urine Appearance Clear (Clear) Urine pH 6.5 (4.5-7.5) Ur Specific [place] 1.016 (1.000-1.030) Urine Protein Negative (Negative) Urine Glucose (UA) Negative (Negative)
[2022-05-02] MEDS: ACETAMINOPHEN 325 MG TAB PO PRN ×2 (14:57→20:44)
[2022-05-02] MEDS ORDERED: LIDOCAINE 1% LOCAL 20 ML VIAL ONE (16:00)
[2022-05-02] MEDS ORDERED: BUPIVACAINE 0.5 % 5 MG/1 ML MPF 30ML VIAL ONE (16:00)
[2022-05-02] MEDS ORDERED: DEXAMETHASONE SOD INJ 4 MG/ML VIAL ONE (16:10)
[2022-05-02] MEDS ORDERED: fentaNYL citrate 100 MCG/2 ML VIAL ONE (16:10)
[2022-05-02] MEDS ORDERED: ROCURONIUM BROMIDE 10 MG/ML 5 ML VIAL IV ONE ×4 (16:10→18:01)
[2022-05-02] MEDS ORDERED: PROPOFOL IV EMULSION 10 MG/ML 20 ML VIAL IV ONE (16:10)
[2022-05-02] MEDS ORDERED: fentaNYL citrate 100 MCG/2 ML VIAL IV PRN (16:54)
[2022-05-02] MEDS ORDERED: ONDANSETRON INJ 2 MG/ML 2 ML VIAL IV PRN ×2 (16:54→19:58)
[2022-05-02] MEDS ORDERED: ATROPINE SULFATE 0.1 MG/ML 10ML SYR IV PRN (16:54)
[2022-05-02] MEDS ORDERED: HYDROmorphone INJ 2 MG/ML SYR/VIAL IV PRN (16:54)
[2022-05-02] MEDS ORDERED: ePHEDrine sulfate 50 MG/ML AMP IV PRN (16:54)
--- NOTE | 2022-05-02 17:20 | History & Physical Bridge Note ---
Date of Service May 02, 2022 History & Physical Bridge Note I have examined the patient, reviewed the History & Physical and in the interval since the performance of the History & Physical I have noted the following changes of clinical significance: no changes noted
[2022-05-02] MEDS ORDERED: GLYCOPYRROLATE 0.2 MG/ML VIAL ONE (18:01)
[2022-05-02] MEDS ORDERED: LIDOCAINE 2% MPF LOCAL 5 ML VIAL INFIL ONE (18:01)
[2022-05-02] MEDS ORDERED: NEOSTIGMINE METHYLSULFATE 1 MG/ML 10ML VIAL ONE (18:01)
[2022-05-02] MEDS ORDERED: ONDANSETRON INJ 2 MG/ML 2 ML VIAL ONE (18:01)
--- NOTE | 2022-05-02 19:01 | Fluoroscopy Report ---
FL femur LT 2V CLINICAL HISTORY: LT TROCH NAIL TECHNIQUE: 4 views were obtained with the C-arm in the OR with the above procedure. Total fluoroscopy time was 123.3 seconds. Radiation dose was 27.68 mGy. Comparison: None available at the time of this dictation. FINDINGS/IMPRESSION: Intraoperative images were obtained of trochanteric nail placement. Please correlate with intraoperative fluoroscopy and operative report. ACT 112: Negative or not required by law. Electronically signed by: Calvin Mckee M.D. 05/02/2022 7:00 PM
--- NOTE | 2022-05-02 19:03 | Operative Report ---
Post Operative Report Pre & Post Diagnosis Operation Date: 05/02/22 08:20 Pre-Op Diagnosis: Left hip intertrochanteric femur fracture with subtrochanteric extension Post-Op Diagnosis: Left hip intertrochanteric femur fracture with subtrochanteric extension I identified the patient and participated in the time-out.: Yes Procedure Operation Date: 05/02/22 08:20 Actual Procedures Left hip cephalomedullary nailing of intertrochanteric femur fracture with subtrochanteric extension (12799) - Charly Shelby M.D. Surgeon Charly Shelby Shorts Sifter Johnny Bridges PA-C Estimated Blood Loss 50 Findings Consistent with Post-Op Diagnosis Specimens None Drains None Anesthesia Type General Complications none Disposition Disposition: Recovery Room Indications Mr. Dougherty is an 81-year-old male who injured his left hip during a ground-level fall. History, clinical exam, and imaging were consistent with the above diagnosis. Risks, benefits, and alternatives of surgery were explained in detail. The patient understood all this and wished to proceed. Description of Procedure Implants: Synthes Long ([id number]) 130 degree Trochanteric Fixation Nail, 11mm helical blade, 5mm distal locking screws x 2 Patient was identified in the preoperative holding area. Operative extremity was marked. Patient was then brought back to the operating room, and general anesthesia was induced without complication. Appropriate weight-based dose of Ancef was infused intravenously for antibiotic prophylaxis. Patient was then positioned on the fracture table with the traction apparatus. The nonoperative hip was flexed and placed into the well leg velasco. Longitudinal traction was applied to the operative hip. Fracture reduction was then performed under fluoroscopic imaging. Once acceptable reduction had been achieved, the left hip was then prepped and draped in a standard sterile fashion using Chlorhexidine prep. I first made an incision just proximal to the greater trochanter in line with the femoral shaft axis, and split the fibers of the iliotibial band. I then bluntly palpated down to the greater trochanter and inserted the guidewire down to the tip of the greater trochanter. It was appropriately positioned on AP and lateral images, and then driven into the proximal femur. I then inserted the soft tissue protector down to the tip of the greater trochanter and then passed the entry reamer over top of the guidewire. It was advanced down towards the lesser trochanter to open the proximal femur. I then inserted a ball-tipped guidewire down the femoral shaft towards the knee. Once it was in appropriate position, an appropriate length nail was selected. The femoral canal was then sequentially reamed up to 12.5 mm diameter to allow passage of an 11 mm diameter nail. The Synthes long TFN was then attached to the targeting arm and inserted into the proximal femur. I malleted it down to an appropriate depth for proper trajectory of the helical blade into the femoral head. Once the nail was at an appropriate depth, I then attached the targeting guide for the helical blade onto the targeting arm. Incision was made in line with the guide through the skin and iliotibial band. The guide sleeve was placed against the lateral cortex of the femur. Guidewire was then inserted through the guide and up into the femoral neck and head. I verified proper placement and trajectory under both AP and lateral images. I advanced the guidewire to the subchondral bone in the femoral head and verified proper depth on orthogonal images. I then measured the depth off of the guidewire. The drill for the helical blade was then set at an appropriate level to match the measured length. The drill was then advanced to the set depth. An appropriate length helical blade was selected and malleted into place over the guidewire. I then deployed the set screw proximally to prevent rotation of the helical blade during fracture compression. Fracture compression was then applied using the compression ring on the helical blade targeting sleeve. The proximal targeting arm was then removed. I then proceeded with distal locking screw insertion at the knee. "Perfect circles" was achieved with fluoroscopy for targeting of the distal static locking screw hole through the distal end of the nail. Both cortices of the femur were drilled through this distal locking hole. An appropriate length distal locking screw was selected and inserted. A second distal static locking screw was inserted in similar fashion due to the fracture pattern. Final fluoroscopic images were then obtained to ensure proper hardware placement, screw length, and fracture reduction. The wounds were then copiously irrigated with sterile saline. I then closed the iliotibial band and deep dermal tissue with #0 Vicryl suture. Subcutaneous tissues closed with 3-0 Vicryl suture, and skin was closed with may. Sterile dressings were then applied with Xeroform, sterile gauze, and foam tape. Drapes were then removed and traction apparatus was disconnected. The patient was awakened from general anesthesia, transferred over to the stretcher, and taken to the Post Anesthesia Care Unit in stable condition. There were no immediate complications from the procedure. I was present and scrubbed for the entire procedure. Due to the complex nature of the procedure, the entire surgery was performed with the operational assistance of Johnny Bridges PA-C. The clinical physician assistant, under direct supervision, was involved in the performance of all aspects of the surgical procedure including hemostasis, tissue incision and retraction, instrument management, patient positioning, and wound closure. I attest to the content of the Intraoperative Record and any orders documented therein. Any exceptions are noted below.
--- NOTE | 2022-05-02 19:33 | XRay Report ---
XR femur LT 2V routine CLINICAL HISTORY: post op long troch nail TECHNIQUE: 2 radiographic views of the left femur were obtained. Comparison: Comparison is made to left femur radiographs 05/01/2022 FINDINGS: Interval placement of a femoral sixto. Postsurgical changes are seen with associated soft tissue swelli ng. Fracture fragments are in anatomic alignment. IMPRESSION: Expected postoperative appearance status post placement of a medullary nail. ACT 112: Negative or not required by law. Electronically signed by: Calvin Mckee M.D. 05/02/2022 7:31 PM
[2022-05-02] MEDS ORDERED: NALOXONE HCL 0.4 MG/1 ML VIAL/CARP IV PRN (19:58)
[2022-05-02] MEDS ORDERED: bisacodyL 10 MG SUPP PR PRN (19:58)
[2022-05-02] MEDS ORDERED: METOCLOPRAMIDE HCL INJ 5 MG/ML 2 ML VIAL IV PRN (19:58)
[2022-05-02] MEDS ORDERED: MAGNESIUM HYDROXIDE SUSP 30 ML UDC PO PRN (19:58)
[2022-05-02] MEDS: SENNA 8.6 MG TAB PO SCH (20:09)
[2022-05-02] MEDS: SODIUM CHLORIDE 0.9% 1000ML 1,000 ML IV SCH (20:44)
[2022-05-02] MEDS: DOCUSATE SODIUM/SENNA 50/8.6MG TAB PO SCH (20:45)
[2022-05-02] MEDS: DOCUSATE SODIUM 100 MG CAP PO SCH (20:46)
[2022-05-03] MEDS: ceFAZolin 2000MG 2,000 MG/15 ML SYR IV SCH ×2 (02:10→10:30)
[2022-05-03] MEDS: SODIUM CHLORIDE 0.9% 1000ML 1,000 ML IV SCH (05:10)
--- NOTE | 2022-05-03 07:25 | Orthopedic Progress Note ---
Date of Service May 03, 2022 Assessment & Plan (1) Intertrochanteric fracture of left femur: Plan: Postop day #1 left trochanteric femoral nailing -PT/OT: Toe-touch weightbearing left lower extremity -AM labs pending -DVT prophylaxis-aspirin, SCDs -Discharge planning: Home with home health versus inpatient rehab pending therapy evaluations. Admission and Anticipated Discharge Date Admission Date: May 01, 2022 Subjective Patient is sitting in bedside chair. He has little to no pain at this time. No other complaints. Denies chest pain, shortness of breath, dizziness/lightheadedness, nausea/vomiting/diarrhea. Review of Systems Review of Systems: All systems reviewed & are unremarkable except as noted in Subjective Physical Exam Physical Exam: Left hip: Dressings are clean, dry, intact. Compartments are soft and nontender. No calf tenderness. Toes are mobile with good dorsiflexion. Distally neurovascular status and sensation intact. Results & Data ([facility]) Vital Signs (Past 12 Hours) Vital Signs Temp Pulse Pulse Resp BP Pulse Ox O2 Del Method 05/03/22 05:12 36.8 C 79 18 151/79 H 95 Room Air 05/03/22 02:00 36.7 C 65 16 139/72 95 Room Air 05/02/22 22:13 36.5 C 66 16 136/67 98 Room Air 05/02/22 21:20 36.5 C 62 16 149/66 H 98 Nasal Cannula 05/02/22 20:19 36.7 C 54 L 18 174/63 H 95 Room Air 05/02/22 19:35 36.1 C L 59 L 16 159/63 H 93 Room Air 05/02/22 19:25 61 14 157/69 H 92 Room Air O2 Flow Rate 05/03/22 05:12 05/03/22 02:00 05/02/22 22:13 05/02/22 21:20 1.0 05/02/22 20:19 05/02/22 19:35 05/02/22 19:25
[2022-05-03] MEDS: MULTIVITAMIN TAB PO SCH (08:08)
[2022-05-03] MEDS: LOSARTAN POTASSIUM 50 MG TAB PO SCH (08:08)
[2022-05-03] MEDS: ASPIRIN 325 MG ECTAB PO SCH (08:08)
[2022-05-03] MEDS: ATORVASTATIN 20 MG TAB PO SCH (08:08)
[2022-05-03] MEDS: PANTOprazole 40 MG TAB PO SCH (08:08)
[2022-05-03] MEDS: DOCUSATE SODIUM 100 MG CAP PO SCH ×2 (08:08→19:51)
[2022-05-03] MEDS: METOPROLOL TARTRATE 25 MG TAB PO SCH (08:08)
[2022-05-03 09:31] LABS: Hemoglobin 9.4 g/dl (14.0-18.0); Mean Corpuscular Hemoglobin 31.8 pg (25.0-34.0); Mean Corpuscular Hgb Conc 33.6 g/dL (32.0-36.0); Mean Corpuscular Volume 94.6 fL (80.0-100.0); Mean Platelet Volume 9.8 fL (9.4-12.4); Platelet Count 186 K/uL (130-400); RDW Standard Deviation 41.7 fL (36.4-46.3); Red Blood Count 2.96 M/uL (4.63-6.08); White Blood Count 16.49 K/ul (4.8-10.8)
[2022-05-03 09:56] LABS: BUN Creatinine Ratio 21.2 (10-20); Calcium 8.3 mg/dl (8.5-10.1); Creatinine Clr Calc Pharmacy 50.7 ml/min; Est GFR (African American) 66.7 ml/min; Est GFR (Non-African American) 57.5 ml/min; Potassium 3.9 mmol/L (3.5-5.1)
--- NOTE | 2022-05-03 15:39 | Hospitalist Progress Note ---
Date of Service May 03, 2022 Assessment & Plan (1) Intertrochanteric fracture of left femur: Plan: Patient is an 81 yr male with H/O CAD, aortic stenosis s/p TAVR in 02/2021, HTN, HLD, CVA, carotid disease s/p bilateral carotid endarterectomy presented to ER with complaint of mechanical fall and left hip pain. Communicated intertrochanteric fracture of the left femur -Hip/Pelvis Xray: Left femoral shaft/intratrochanteric fracture with surrounding soft tissue swelling -S/P Left hip cephalomedullary nailing of intertrochanteric femur fracture with subtrochanteric extension By on 05/02/22 Fall precautions Pain control Bowel regimen to prevent constipation Appreciate orthopedics input Will benefit from Rehab placement Monitor CBC (2) Hx of aortic valve stenosis: (3) History of transcatheter aortic valve replacement (TAVR): Plan: H/O TAVR in 02/2021 Continue home medications (4) History of CVA (cerebrovascular accident): Plan: History CVA in 1996 Resumed Aspirin Continue atorvastatin (5) CAD (coronary artery disease): Plan: Non-obstructive per cardiac cath in 12/2020 Continue Aspirin, atorvastatin, metoprolol (6) Hypertension: Plan: Hold HCTZ for now Continue metoprolol, losartan (7) Carotid stenosis: Plan: S/P bilateral carotid endarterectomy DVT Px SCDs Aspirin 325mg Code Status DNR/DNI Admission and Anticipated Discharge Date Admission Date: May 01, 2022 Subjective Patient is seen and examined at bedside Left hip pain and surgical site is controlled No other complaints Denies any chest pain, shortness breath, dizziness, nausea, abdominal pain Review of Systems Review of Systems: All systems reviewed & are unremarkable except as noted in Subjective Physical Exam Physical Exam: Physical Exam: Vitals signs as noted above General Appearance:Moderately built and nourished, no apparent distress Head: normocephalic, Atraumatic Eyes: normal inspection, EOMI Neck: supple, Trachea midline Respiratory/Chest: Normal breath sounds, CTA, No accessory muscle use Cardiovascular: S1, S2, No murmur Abdomen/GI:Soft, Non tender, Bowel sounds present Extremities/Musculoskeletal: Left hip surgical site in dressing Neurologic/Psych:AAOX3, grossly no focal neurological deficits Skin: normal color, warm Results & Data Results & Data ([facility]) Vital Signs (Past 12 Hours) Vital Signs Temp Pulse Resp BP Pulse Ox O2 Del Method 05/03/22 15:12 36.8 C 73 18 147/65 H 98 Room Air 05/03/22 05:12 36.8 C 79 18 151/79 H 95 Room Air Laboratory Results Short CBC 05/03/22 Range/Units 08:42 WBC 16.49 H (4.8-10.8) K/ul Hgb 9.4 L (14.0-18.0) g/dl Hct 28.0 L (40.1-51.0) % Plt Count 186 (130-400) K/uL BMP 05/03/22 08:42 Sodium 135 L Potassium 3.9 Chloride 100 Carbon Dioxide 28 BUN 25 H Creatinine 1.18 Glucose 193 H Calcium 8.3 L
[2022-05-03] MEDS: ACETAMINOPHEN 325 MG TAB PO PRN (19:51)
[2022-05-03] MEDS: SENNA 8.6 MG TAB PO SCH (19:51)
[2022-05-04] MEDS: DOCUSATE SODIUM 100 MG CAP PO SCH ×2 (08:18→21:30)
[2022-05-04] MEDS: PANTOprazole 40 MG TAB PO SCH (08:18)
[2022-05-04] MEDS: ATORVASTATIN 20 MG TAB PO SCH (08:18)
[2022-05-04] MEDS: METOPROLOL TARTRATE 25 MG TAB PO SCH (08:18)
[2022-05-04] MEDS: POLYETHYLENE (MIRALAX) 17 GM PACK PO PRN (08:18)
[2022-05-04] MEDS: LOSARTAN POTASSIUM 50 MG TAB PO SCH (08:18)
[2022-05-04] MEDS: MULTIVITAMIN TAB PO SCH (08:18)
[2022-05-04] MEDS: ASPIRIN 325 MG ECTAB PO SCH (08:18)
[2022-05-04 09:19] LABS: Basophils # (auto) 0.05 K/uL (0-0.2); Basophils % (auto) 0.4 %; Eosinophils # (auto) 0.24 K/uL (0-0.50); Eosinophils % (auto) 1.9 %; Hematocrit (blood only) 26.7 % (40.1-51.0); Immature Granulocytes # (auto) 0.05 K/uL (0.00-0.02); Immature Granulocytes % (auto) 0.4 %; Lymphocytes # (auto) 1.81 K/uL (1.2-3.4); Lymphocytes % (auto) 14.1 %; Mean Corpuscular Hemoglobin 31.9 pg (25.0-34.0); Mean Corpuscular Hgb Conc 33.7 g/dL (32.0-36.0); Mean Corpuscular Volume 94.7 fL (80.0-100.0); Mean Platelet Volume 9.6 fL (9.4-12.4); Monocytes # (auto) 1.29 K/uL (0.24-0.82); Neutrophils # (auto) 9.43 K/uL (1.4-6.5); Neutrophils % (auto) 73.2 %; Platelet Count 187 K/uL (130-400); RDW Coefficient of Variation 12.3 % (11.5-14.5); RDW Standard Deviation 42.6 fL (36.4-46.3); Red Blood Count 2.82 M/uL (4.63-6.08); White Blood Count 12.87 K/ul (4.8-10.8)
--- NOTE | 2022-05-04 09:31 | Orthopedic Progress Note ---
Date of Service May 04, 2022 Assessment & Plan (1) Intertrochanteric fracture of left femur: Plan: 81-year-old male status post left hip cephalomedullary nail postoperative day #2 Pain control DVT prophylaxis PT/OT Partial weightbearing left lower extremity Medical management Plan for discharge to rehab/SNF. Stable from Ortho standpoint. We will sign off at this time. Patient may follow-up with an outpatient in [address] Shelby Admission and Anticipated Discharge Date Admission Date: May 01, 2022 Subjective Patient seen and examined, no acute events overnight. Pain well controlled. Out of bed ambulating with PT. Physical Exam Physical Exam: No acute distress, alert and oriented person place and time Musculoskeletal: Left lower extremity -Dressing is clean dry and intact with minimal shadowing -Thigh soft and compressible -Sensation intact to light touch saphenous/superficial peroneal nerve/deep peroneal nerve/tibial/sural nerve distributions -Fires TA/EHL/GSC -Palpable dorsalis pedis and posterior tibial pulses Results & Data ([facility]) Vital Signs (Past 12 Hours) Vital Signs Temp Pulse Pulse Resp BP Pulse Ox O2 Del Method 05/04/22 07:30 36.7 C 77 18 138/66 94 Room Air 05/03/22 22:22 36.7 C 74 15 120/55 L 96 Room Air
[2022-05-04 09:37] LABS: BUN Creatinine Ratio 25.5 (10-20); Calcium 8.5 mg/dl (8.5-10.1); Creatinine Clr Calc Pharmacy 58.6 ml/min; Est GFR (African American) 79.5 ml/min; Est GFR (Non-African American) 68.6 ml/min; Magnesium 1.9 mg/dl (1.7-2.4)
--- NOTE | 2022-05-04 12:33 | Hospitalist Progress Note ---
Date of Service May 04, 2022 Assessment & Plan (1) Intertrochanteric fracture of left femur: Plan: Patient is an 81 yr male with H/O CAD, aortic stenosis s/p TAVR in 02/2021, HTN, HLD, CVA, carotid disease s/p bilateral carotid endarterectomy presented with left femur and intratrochanteric fracture after fall, no s/p cephalomedullary nail post-op #2. Communicated intertrochanteric fracture of the left femur -Hip/Pelvis Xray: Left femoral shaft/intratrochanteric fracture with surrounding soft tissue swelling -S/P Left hip cephalomedullary nailing of intertrochanteric femur fracture with subtrochanteric extension By Dr. Shelby on 05/02/22 - POD#2 Fall precautions Pain control Bowel regimen to prevent constipation Appreciate orthopedics input Will benefit from Rehab placement - pending placement Monitor CBC - stable (2) Hx of aortic valve stenosis: Plan: H/O TAVR in 02/2021 Continue home medications (3) History of CVA (cerebrovascular accident): Plan: History CVA in 1996 continu Aspirin Continue atorvastatin (4) CAD (coronary artery disease): Plan: Non-obstructive per cardiac cath in 12/2020 Continue Aspirin, atorvastatin, metoprolol - no chest pain reported at this time (5) Hypertension: Plan: Continue metoprolol, losartan, HCTZ (6) Carotid stenosis: Plan: S/P bilateral carotid endarterectomy Plan DVT Px SCDs heparin SC Code Status DNR/DNI Admission and Anticipated Discharge Date Admission Date: May 01, 2022 Subjective Patient with CAD, aortic stenosis s/p TAVR 02/2021, HTN, HLD, h/o CVA, carotid artery disease s/p bilateral carotid endarterectomy presented with left femur and intratrochanteric fracture after fall, no s/p cephalomedullary nail post-op #2. Review of Systems Review of Systems: All systems reviewed & are unremarkable except as noted in Subjective Physical Exam Physical Exam: General Appearance:Moderately built and nourished, no apparent distress Head: normocephalic, Atraumatic Eyes: normal inspection, EOMI Neck: supple, Trachea midline Respiratory/Chest: Normal breath sounds, CTA, No accessory muscle use Cardiovascular: S1, S2, No murmur Abdomen/GI:Soft, Non tender, Bowel sounds present Extremities/Musculoskeletal: Left hip surgical site in dressing Neurologic/Psych:AAOX3, grossly no focal neurological deficits Skin: normal color, warm Results & Data Results & Data ([facility]) Vital Signs (Past 12 Hours) Vital Signs Temp Pulse Resp BP Pulse Ox O2 Del Method 05/04/22 07:30 36.7 C 77 18 138/66 94 Room Air Diagnostic Findings Laboratory Results WBC 12.87 K/ul (4.8-10.8) H 05/04/22 08:45 RBC 2.82 M/uL (4.63-6.08) L 05/04/22 08:45 Hgb 9.0 g/dl (14.0-18.0) L 05/04/22 08:45 Hct 26.7 % (40.1-51.0) L 05/04/22 08:45 MCV 94.7 fL (80.0-100.0) 05/04/22 08:45 MCH 31.9 pg (25.0-34.0) 05/04/22 08:45 MCHC 33.7 g/dL (32.0-36.0) 05/04/22 08:45 RDW Std Deviation 42.6 fL (36.4-46.3) 05/04/22 08:45 RDW Coeff of Jt 12.3 % (11.5-14.5) 05/04/22 08:45 Plt Count 187 K/uL (130-400) 05/04/22 08:45 MPV 9.6 fL (9.4-12.4) 05/04/22 08:45 Immature Gran % (Auto) 0.4 % 05/04/22 08:45 Neut % (Auto) 73.2 % 05/04/22 08:45 Lymph % (Auto) 14.1 % 05/04/22 08:45 [place] % (Auto) 10.0 % 05/04/22 08:45 Eos % (Auto) 1.9 % 05/04/22 08:45 Baso % (Auto) 0.4 % 05/04/22 08:45 Neut # (Auto) 9.43 K/uL (1.4-6.5) H 05/04/22 08:45 Lymph # (Auto) 1.81 K/uL (1.2-3.4) 05/04/22 08:45 [place] # (Auto) 1.29 K/uL (0.24-0.82) H 05/04/22 08:45 Eos # (Auto) 0.24 K/uL (0-0.50) 05/04/22 08:45 Baso # (Auto) 0.05 K/uL (0-0.2) 05/04/22 08:45 Immature Gran # (Auto) 0.05 K/uL (0.00-0.02) H 05/04/22 08:45 PT 10.5 Seconds (9.0-12.0) 05/01/22 12:10 INR 1.0 (0.9-1.1) 05/01/22 12:10 APTT 25.4 Seconds (21.0-31.0) 05/01/22 12:10 PTT Ratio 0.9 05/01/22 12:10 Sodium 138 mmol/L (136-145) 05/04/22 08:45 Potassium 4.0 mmol/L (3.5-5.1) 05/04/22 08:45 Chloride 103 mmol/L (98-107) 05/04/22 08:45 Carbon Dioxide 29 mmol/L (21-32) 05/04/22 08:45 Anion Gap 6 (3-11) 05/04/22 08:45 BUN 26 mg/dl (6-23) H 05/04/22 08:45 Creatinine 1.02 mg/dl (0.6-1.4) 05/04/22 08:45 Est Cr Clr Drug Dosing 58.6 ml/min 05/04/22 08:45 Est GFR ( Amer) 79.5 ml/min 05/04/22 08:45 Est GFR (Non-Af Amer) 68.6 ml/min 05/04/22 08:45 BUN/Creatinine Ratio 25.5 (10-20) H 05/04/22 08:45 Glucose 150 mg/dl (70-99(Fasting)) H 05/04/22 08:45 Calcium 8.5 mg/dl (8.5-10.1) 05/04/22 08:45 Magnesium 1.9 mg/dl (1.7-2.4) 05/04/22 08:45 Total Bilirubin 0.5 mg/dl (0.2-1.0) 05/01/22 12:10 AST 20 U/L (13-39) 05/01/22 12:10 ALT 14 U/L (7-52) 05/01/22 12:10 Alkaline Phosphatase 75 U/L (34-104) 05/01/22 12:10 Total Protein 7.2 gm/dl (6.0-8.3) 05/01/22 12:10 Albumin 4.0 gm/dl (3.4-5.0) 05/01/22 12:10 Globulin 3.2 gm/dl (2.5-4.0) 05/01/22 12:10 Albumin/Globulin Ratio 1.3 (0.9-2) 05/01/22 12:10 Urine Color Yellow 05/01/22 13:50 Urine Appearance Clear (Clear) 05/01/22 13:50 Urine pH 6.5 (4.5-7.5) 05/01/22 13:50 Ur Specific [place] 1.016 (1.000-1.030) 05/01/22 13:50 Urine Protein Negative (Negative) 05/01/22 13:50 Urine Glucose (UA) Negative (Negative) 05/01/22 13:50 Urine Ketones Negative (Negative) 05/01/22 13:50 Urine Blood Negative (Negative) 05/01/22 13:50 Urine Nitrite Negative (Negative) 05/01/22 13:50 Urine Bilirubin Negative (Negative) 05/01/22 13:50 Urine Urobilinogen Negative (Negative) 05/01/22 13:50 Ur Leukocyte Esterase Negative (Negative) 05/01/22 13:50 SARS-CoV-2, RNA, NAAT NEGATIVE (NEGATIVE) 05/01/22 13:26 Blood Type B Positive 05/01/22 21:27 Blood Type Recheck B Positive 05/01/22 21:44 Antibody Screen NEGATIVE 05/01/22 21:27 Impressions Hip/Pelvis X-Ray 05/01/22 11:51 XR hip LT 2V w pelvis CLINICAL HISTORY: fall, hp pain TECHNIQUE: 2 views of the left hip and single frontal view of the pelvis were obtained. Comparison: None available at the time of this dictation. FINDINGS: There is a fracture of the proximal femoral shaft which may be intertrochanteric. There is apex lateral angulation. Degenerative changes are seen in the hip joint. Soft tissue swelling is seen. IMPRESSION: Left femoral shaft/intratrochanteric fracture with surrounding soft tissue swelling. ACT 112: Negative or not required by law. Electronically signed by: Calvin Mckee M.D. 05/01/2022 1:38 PM Chest X-Ray 05/01/22 13:22 XR chest 1V not portable HISTORY: Fall. Preop. Left hip fracture. COMPARISON: Chest 11/14/2017. FINDINGS: No pneumothorax. No pleural effusions. The lungs are clear. Old, healed bilateral rib fractures. Mild elevation of the right hemidiaphragm. An aortic valve prosthesis is again noted. Old, healed bilateral rib fractures. IMPRESSION: No acute process. ACT 112: Negative or not required by law. Electronically signed by: Jonas Viramontes M.D. 05/01/2022 1:39 PM Femur X-Ray 05/02/22 19:07 XR femur LT 2V routine CLINICAL HISTORY: post op long troch nail TECHNIQUE: 2 radiographic views of the left femur were obtained. Comparison: Comparison is made to left femur radiographs 05/01/2022 FINDINGS: Interval placement of a femoral sixto. Postsurgical changes are seen with associated soft tissue swelling. Fracture fragments are in anatomic alignment. IMPRESSION: Expected postoperative appearance status post placement of a medullary nail. ACT 112: Negative or not required by law. Electronically signed by: Calvin Mckee M.D. 05/02/2022 7:31 PM Medications Administered Current Inpatient Medications Acetaminophen (Acetaminophen 325 Mg Tab) 650 mg PO Q4H PRN PRN Reason: Pain or Fever Stop: 05/31/22 17:11 Last Admin: 05/03/22 19:51 Dose: 650 mg Aspirin (Aspirin 325 Mg Ectab) 325 mg PO QAM [facility] Stop: 06/02/22 08:59 Last Admin: 05/04/22 08:18 Dose: 325 mg Atorvastatin Calcium (Atorvastatin 20 Mg Tab) 20 mg PO DAILY [facility] Stop: 06/01/22 08:59 Last Admin: 05/04/22 08:18 Dose: 20 mg Bisacodyl (Bisacodyl 10 Mg Supp) 10 mg OR DAILY PRN PRN Reason: Constipation Stop: 06/01/22 19:57 Docusate Sodium (Docusate Sodium 100 Mg Cap) 100 mg PO BID [facility] Stop: 06/01/22 20:59 Last Admin: 05/04/22 08:18 Dose: 100 mg Losartan Potassium (Losartan Potassium 50 Mg Tab) 50 mg PO DAILY [facility] Stop: 06/01/22 08:59 Last Admin: 05/04/22 08:18 Dose: 50 mg Magnesium Hydroxide (Magnesium Hydroxide Susp 30 Ml Udc) 30 ml PO Q6H PRN PRN Reason: Constipation Stop: 06/01/22 19:57 Metoclopramide HCl (Metoclopramide Hcl Inj 5 Mg/Ml 2 Ml Vial) 10 mg IV Q6H PRN PRN Reason: Nausea And Vomiting Stop: 06/01/22 19:57 Metoprolol Tartrate (Metoprolol Tartrate 25 Mg Tab) 12.5 mg PO DAILY [facility] Stop: 06/01/22 08:59 Last Admin: 05/04/22 08:18 Dose: 12.5 mg Morphine Sulfate (Morphine Sulfate 2 Mg/Ml Carp) 2 mg IV Q3H PRN PRN Reason: Severe Pain Stop: 05/15/22 17:11 Multivitamins (Multivitamin Tab) 1 tab PO QAM [facility] Stop: 06/02/22 08:59 Last Admin: 05/04/22 08:18 Dose: 1 tab Naloxone HCl (Naloxone Hcl 0.4 Mg/1 Ml Vial/Carp) 0.1 mg IV Q5M PRN PRN Reason: Oversedation/Resp Depression Stop: 06/01/22 19:57 Ondansetron HCl (Ondansetron Inj 2 Mg/Ml 2 Ml Vial) 4 mg IV Q6H PRN PRN Reason: Nausea And Vomiting Stop: 06/01/22 19:57 Oxycodone HCl (Oxycodone Hcl Ir 5 Mg Tab (Immediate Release)) 5 mg PO Q4H PRN PRN Reason: MODERATE Pain (4,5,6) & Pre PT Stop: 05/15/22 17:11 Last Admin: 05/02/22 11:58 Dose: 5 mg Pantoprazole Sodium (Pantoprazole 40 Mg Tab) 40 mg PO DAILY [facility] Stop: 06/01/22 08:59 Last Admin: 05/04/22 08:18 Dose: 40 mg Polyethylene Glycol (Polyethylene (Miralax) 17 Gm Pack) 17 gm PO DAILY PRN PRN Reason: Constipation Stop: 06/01/22 12:12 Last Admin: 05/04/22 08:18 Dose: 17 gm Sennosides (Senna 8.6 Mg Tab) 17.2 mg PO [facility] Stop: 06/01/22 20:59 Last Admin: 05/03/22 19:51 Dose: 17.2 mg
[2022-05-04] MEDS: ACETAMINOPHEN 325 MG TAB PO PRN (13:16)
[2022-05-04] MEDS: HEPARIN SOD 5,000 UNIT/0.5 ML VIAL SQ SCH ×2 (13:19→21:31)
[2022-05-04] MEDS: SENNA 8.6 MG TAB PO SCH (21:30)
[2022-05-05] MEDS: HEPARIN SOD 5,000 UNIT/0.5 ML VIAL SQ SCH ×3 (06:12→21:06)
[2022-05-05] MEDS: METOPROLOL TARTRATE 25 MG TAB PO SCH (08:50)
[2022-05-05] MEDS: ATORVASTATIN 20 MG TAB PO SCH (08:50)
[2022-05-05] MEDS: DOCUSATE SODIUM 100 MG CAP PO SCH ×2 (08:51→20:23)
[2022-05-05] MEDS: MULTIVITAMIN TAB PO SCH (08:51)
[2022-05-05] MEDS: LOSARTAN POTASSIUM 50 MG TAB PO SCH (08:51)
[2022-05-05] MEDS: hydroCHLOROthiazide 25 MG TAB PO SCH (08:51)
[2022-05-05] MEDS: PANTOprazole 40 MG TAB PO SCH (08:51)
[2022-05-05] MEDS: ASPIRIN 81 MG ECTAB PO SCH (08:51)
--- NOTE | 2022-05-05 12:27 | Hospitalist Progress Note ---
Date of Service May 05, 2022 Assessment & Plan (1) Intertrochanteric fracture of left femur: Plan: Patient is an 81 yr male with H/O CAD, aortic stenosis s/p TAVR in 02/2021, HTN, HLD, CVA, carotid disease s/p bilateral carotid endarterectomy presented with left femur and intratrochanteric fracture after fall, no s/p cephalomedullary nail post-op #2. Communicated intertrochanteric fracture of the left femur -Hip/Pelvis Xray: Left femoral shaft/intratrochanteric fracture with surrounding soft tissue swelling -S/P Left hip cephalomedullary nailing of intertrochanteric femur fracture with subtrochanteric extension By Dr. Shelby on 05/02/22 - POD#2 Fall precautions Pain control Bowel regimen to prevent constipation Appreciate orthopedics input Will benefit from Rehab placement - pending placement Monitor CBC - stable (2) Hx of aortic valve stenosis: Plan: H/O TAVR in 02/2021 Continue home medications (3) History of CVA (cerebrovascular accident): Plan: History CVA in 1996 continu Aspirin Continue atorvastatin (4) CAD (coronary artery disease): Plan: Non-obstructive per cardiac cath in 12/2020 Continue Aspirin, atorvastatin, metoprolol - no chest pain reported at this time (5) Hypertension: Plan: Continue metoprolol, losartan, HCTZ (6) Carotid stenosis: Plan: S/P bilateral carotid endarterectomy Plan DVT Px SCDs heparin SC Code Status DNR/DNI Admission and Anticipated Discharge Date Admission Date: May 01, 2022 Subjective Patient with CAD, aortic stenosis s/p TAVR 02/2021, HTN, HLD, h/o CVA, carotid artery disease s/p bilateral carotid endarterectomy presented with left femur and intratrochanteric fracture after fall, no s/p cephalomedullary nail post-op 05/02/2022. Patient feels well today. Denies pain in leg, chest pain, shortness of breath, n/v/d, abdominal pain, dysuria. Able to move left leg more than before. Ambulates with walker with minimal weight bearing on left leg. Review of Systems Review of Systems: All systems reviewed & are unremarkable except as noted in Subjective Physical Exam Physical Exam: General Appearance:Moderately built and nourished, no apparent distress Head: normocephalic, Atraumatic Eyes: normal inspection, EOMI Neck: supple, Trachea midline Respiratory/Chest: Normal breath sounds, CTA, No accessory muscle use Cardiovascular: S1, S2, No murmur Abdomen/GI:Soft, Non tender, Bowel sounds present Extremities/Musculoskeletal: Left hip surgical site in dressing Neurologic/Psych:AAOX3, grossly no focal neurological deficits Skin: normal color, warm Results & Data Results & Data ([facility]) Vital Signs (Past 12 Hours) Vital Signs Temp Pulse Resp BP Pulse Ox O2 Del Method 05/05/22 08:45 Room Air 05/05/22 08:49 84 132/61 05/05/22 07:23 36.6 C 82 17 136/62 96 Room Air Diagnostic Findings Laboratory Results WBC 12.87 K/ul (4.8-10.8) H 05/04/22 08:45 RBC 2.82 M/uL (4.63-6.08) L 05/04/22 08:45 Hgb 9.0 g/dl (14.0-18.0) L 05/04/22 08:45 Hct 26.7 % (40.1-51.0) L 05/04/22 08:45 MCV 94.7 fL (80.0-100.0) 05/04/22 08:45 MCH 31.9 pg (25.0-34.0) 05/04/22 08:45 MCHC 33.7 g/dL (32.0-36.0) 05/04/22 08:45 RDW Std Deviation 42.6 fL (36.4-46.3) 05/04/22 08:45 RDW Coeff of Jt 12.3 % (11.5-14.5) 05/04/22 08:45 Plt Count 187 K/uL (130-400) 05/04/22 08:45 MPV 9.6 fL (9.4-12.4) 05/04/22 08:45 Immature Gran % (Auto) 0.4 % 05/04/22 08:45 Neut % (Auto) 73.2 % 05/04/22 08:45 Lymph % (Auto) 14.1 % 05/04/22 08:45 Dare % (Auto) 10.0 % 05/04/22 08:45 Eos % (Auto) 1.9 % 05/04/22 08:45 Baso % (Auto) 0.4 % 05/04/22 08:45 Neut # (Auto) 9.43 K/uL (1.4-6.5) H 05/04/22 08:45 Lymph # (Auto) 1.81 K/uL (1.2-3.4) 05/04/22 08:45 Dare # (Auto) 1.29 K/uL (0.24-0.82) H 05/04/22 08:45 Eos # (Auto) 0.24 K/uL (0-0.50) 05/04/22 08:45 Baso # (Auto) 0.05 K/uL (0-0.2) 05/04/22 08:45 Immature Gran # (Auto) 0.05 K/uL (0.00-0.02) H 05/04/22 08:45 PT 10.5 Seconds (9.0-12.0) 05/01/22 12:10 INR 1.0 (0.9-1.1) 05/01/22 12:10 APTT 25.4 Seconds (21.0-31.0) 05/01/22 12:10 PTT Ratio 0.9 05/01/22 12:10 Sodium 138 mmol/L (136-145) 05/04/22 08:45 Potassium 4.0 mmol/L (3.5-5.1) 05/04/22 08:45 Chloride 103 mmol/L (98-107) 05/04/22 08:45 Carbon Dioxide 29 mmol/L (21-32) 05/04/22 08:45 Anion Gap 6 (3-11) 05/04/22 08:45 BUN 26 mg/dl (6-23) H 05/04/22 08:45 Creatinine 1.02 mg/dl (0.6-1.4) 05/04/22 08:45 Est Cr Clr Drug Dosing 58.6 ml/min 05/04/22 08:45 Est GFR ( Amer) 79.5 ml/min 05/04/22 08:45 Est GFR (Non-Af Amer) 68.6 ml/min 05/04/22 08:45 BUN/Creatinine Ratio 25.5 (10-20) H 05/04/22 08:45 Glucose 150 mg/dl (70-99(Fasting)) H 05/04/22 08:45 POC Glucose 109 mg/dl (70-99) H 05/05/22 12:11 Calcium 8.5 mg/dl (8.5-10.1) 05/04/22 08:45 Magnesium 1.9 mg/dl (1.7-2.4) 05/04/22 08:45 Total Bilirubin 0.5 mg/dl (0.2-1.0) 05/01/22 12:10 AST 20 U/L (13-39) 05/01/22 12:10 ALT 14 U/L (7-52) 05/01/22 12:10 Alkaline Phosphatase 75 U/L (34-104) 05/01/22 12:10 Total Protein 7.2 gm/dl (6.0-8.3) 05/01/22 12:10 Albumin 4.0 gm/dl (3.4-5.0) 05/01/22 12:10 Globulin 3.2 gm/dl (2.5-4.0) 05/01/22 12:10 Albumin/Globulin Ratio 1.3 (0.9-2) 05/01/22 12:10 Urine Color Yellow 05/01/22 13:50 Urine Appearance Clear (Clear) 05/01/22 13:50 Urine pH 6.5 (4.5-7.5) 05/01/22 13:50 Ur Specific [place] 1.016 (1.000-1.030) 05/01/22 13:50 Urine Protein Negative (Negative) 05/01/22 13:50 Urine Glucose (UA) Negative (Negative) 05/01/22 13:50 Urine Ketones Negative (Negative) 05/01/22 13:50 Urine Blood Negative (Negative) 05/01/22 13:50 Urine Nitrite Negative (Negative) 05/01/22 13:50 Urine Bilirubin Negative (Negative) 05/01/22 13:50 Urine Urobilinogen Negative (Negative) 05/01/22 13:50 Ur Leukocyte Esterase Negative (Negative) 05/01/22 13:50 SARS-CoV-2, RNA, NAAT NEGATIVE (NEGATIVE) 05/01/22 13:26 Blood Type B Positive 05/01/22 21:27 Blood Type Recheck B Positive 05/01/22 21:44 Antibody Screen NEGATIVE 05/01/22 21:27 Impressions Hip/Pelvis X-Ray 05/01/22 11:51 XR hip LT 2V w pelvis CLINICAL HISTORY: fall, hp pain TECHNIQUE: 2 views of the left hip and single frontal view of the pelvis were obtained. Comparison: None available at the time of this dictation. FINDINGS: There is a fracture of the proximal femoral shaft which may be intertrochanteric. There is apex lateral angulation. Degenerative changes are seen in the hip joint. Soft tissue swelling is seen. IMPRESSION: Left femoral shaft/intratrochanteric fracture with surrounding soft tissue swelling. ACT 112: Negative or not required by law. Electronically signed by: Calvin Mckee M.D. 05/01/2022 1:38 PM Chest X-Ray 05/01/22 13:22 XR chest 1V not portable HISTORY: Fall. Preop. Left hip fracture. COMPARISON: Chest 11/14/2017. FINDINGS: No pneumothorax. No pleural effusions. The lungs are clear. Old, healed bilateral rib fractures. Mild elevation of the right hemidiaphragm. An aortic valve prosthesis is again noted. Old, healed bilateral rib fractures. IMPRESSION: No acute process. ACT 112: Negative or not required by law. Electronically signed by: Jonas Viramontes M.D. 05/01/2022 1:39 PM Femur X-Ray 05/02/22 19:07 XR femur LT 2V routine CLINICAL HISTORY: post op long troch nail TECHNIQUE: 2 radiographic views of the left femur were obtained. Comparison: Comparison is made to left femur radiographs 05/01/2022 FINDINGS: Interval placement of a femoral sixto. Postsurgical changes are seen with associated soft tissue swelling. Fracture fragments are in anatomic alignment. IMPRESSION: Expected postoperative appearance status post placement of a medullary nail. ACT 112: Negative or not required by law. Electronically signed by: Calvin Mckee M.D. 05/02/2022 7:31 PM Medications Administered Current Inpatient Medications Acetaminophen (Acetaminophen 325 Mg Tab) 650 mg PO Q4H PRN PRN Reason: Pain or Fever Stop: 05/31/22 17:11 Last Admin: 05/04/22 13:16 Dose: 650 mg Aspirin (Aspirin 81 Mg Ectab) [facility] Stop: 06/04/22 08:59 Last Admin: 05/05/22 08:51 Dose: 81 mg Atorvastatin Calcium (Atorvastatin 20 Mg Tab) 20 mg PO DAILY [facility] Stop: 06/01/22 08:59 Last Admin: 05/05/22 08:50 Dose: 20 mg Bisacodyl (Bisacodyl 10 Mg Supp) 10 mg [place] DAILY PRN PRN Reason: Constipation Stop: 06/01/22 19:57 Docusate Sodium (Docusate Sodium 100 Mg Cap) 100 mg PO BID [facility] Stop: 06/01/22 20:59 Last Admin: 05/05/22 08:51 Dose: 100 mg Heparin Sodium (Porcine) (Heparin Sod 5,000 Unit/0.5 Ml Vial) 5,000 units SQ Q8 [facility] Stop: 06/03/22 13:59 Last Admin: 05/05/22 06:12 Dose: 5,000 units Hydrochlorothiazide (Hydrochlorothiazide 25 Mg Tab) 12.5 mg PO QAM [facility] Stop: 06/04/22 08:59 Last Admin: 05/05/22 08:51 Dose: 12.5 mg Losartan Potassium (Losartan Potassium 50 Mg Tab) 50 mg PO DAILY [facility] Stop: 06/01/22 08:59 Last Admin: 05/05/22 08:51 Dose: 50 mg Magnesium Hydroxide (Magnesium Hydroxide Susp 30 Ml Udc) 30 ml PO Q6H PRN PRN Reason: Constipation Stop: 06/01/22 19:57 Metoclopramide HCl (Metoclopramide Hcl Inj 5 Mg/Ml 2 Ml Vial) 10 mg IV Q6H PRN PRN Reason: Nausea And Vomiting Stop: 06/01/22 19:57 Metoprolol Tartrate (Metoprolol Tartrate 25 Mg Tab) 12.5 mg PO DAILY [facility] Stop: 06/01/22 08:59 Last Admin: 05/05/22 08:50 Dose: 12.5 mg Morphine Sulfate (Morphine Sulfate 2 Mg/Ml Carp) 2 mg IV Q3H PRN PRN Reason: Severe Pain Stop: 05/15/22 17:11 Multivitamins (Multivitamin Tab) 1 tab PO QAM [facility] Stop: 06/02/22 08:59 Last Admin: 05/05/22 08:51 Dose: 1 tab Naloxone HCl (Naloxone Hcl 0.4 Mg/1 Ml Vial/Carp) 0.1 mg IV Q5M PRN PRN Reason: Oversedation/Resp Depression Stop: 06/01/22 19:57 Ondansetron HCl (Ondansetron Inj 2 Mg/Ml 2 Ml Vial) 4 mg IV Q6H PRN PRN Reason: Nausea And Vomiting Stop: 06/01/22 19:57 Oxycodone HCl (Oxycodone Hcl Ir 5 Mg Tab (Immediate Release)) 5 mg PO Q4H PRN PRN Reason: MODERATE Pain (4,5,6) & Pre PT Stop: 05/15/22 17:11 Last Admin: 05/02/22 11:58 Dose: 5 mg Pantoprazole Sodium (Pantoprazole 40 Mg Tab) 40 mg PO DAILY [facility] Stop: 06/01/22 08:59 Last Admin: 05/05/22 08:51 Dose: 40 mg Polyethylene Glycol (Polyethylene (Miralax) 17 Gm Pack) 17 gm PO DAILY PRN PRN Reason: Constipation Stop: 06/01/22 12:12 Last Admin: 05/04/22 08:18 Dose: 17 gm Sennosides (Senna 8.6 Mg Tab) 17.2 mg PO HS [facility] Stop: 06/01/22 20:59 Last Admin: 05/04/22 21:30 Dose: 17.2 mg
[2022-05-05] MEDS: SENNA 8.6 MG TAB PO SCH (20:23)
[2022-05-06] MEDS: HEPARIN SOD 5,000 UNIT/0.5 ML VIAL SQ SCH ×3 (05:32→21:05)
[2022-05-06] MEDS: DOCUSATE SODIUM 100 MG CAP PO SCH ×2 (08:09→21:04)
[2022-05-06] MEDS: ATORVASTATIN 20 MG TAB PO SCH (08:09)
[2022-05-06] MEDS: ASPIRIN 81 MG ECTAB PO SCH (08:09)
[2022-05-06] MEDS: METOPROLOL TARTRATE 25 MG TAB PO SCH (08:09)
[2022-05-06] MEDS: MULTIVITAMIN TAB PO SCH (08:09)
[2022-05-06] MEDS: PANTOprazole 40 MG TAB PO SCH (08:09)
[2022-05-06] MEDS: hydroCHLOROthiazide 25 MG TAB PO SCH (08:10)
[2022-05-06] MEDS: LOSARTAN POTASSIUM 50 MG TAB PO SCH (08:10)
[2022-05-06] MEDS: POLYETHYLENE (MIRALAX) 17 GM PACK PO PRN (08:12)
[2022-05-06] MEDS: ACETAMINOPHEN 325 MG TAB PO PRN (10:47)
[2022-05-06] MEDS ORDERED: hydrOXYzine HCl 25 MG TAB PO PRN (14:24)
--- NOTE | 2022-05-06 15:51 | Hospitalist Progress Note ---
Date of Service May 06, 2022 Assessment & Plan (1) Intertrochanteric fracture of left femur: Plan: Patient is an 81 yr male with H/O CAD, aortic stenosis s/p TAVR in 02/2021, HTN, HLD, CVA, carotid disease s/p bilateral carotid endarterectomy presented with left femur and intratrochanteric fracture after fall, no s/p cephalomedullary nail post-op #2. Communicated intertrochanteric fracture of the left femur -Hip/Pelvis Xray: Left femoral shaft/intratrochanteric fracture with surrounding soft tissue swelling -S/P Left hip cephalomedullary nailing of intertrochanteric femur fracture with subtrochanteric extension By Dr. Shelby on 05/02/22 - POD#2 Fall precautions Pain control Bowel regimen to prevent constipation Appreciate orthopedics input Will benefit from Rehab placement - pending placement Monitor CBC - stable (2) Hx of aortic valve stenosis: Plan: H/O TAVR in 02/2021 Continue home medications (3) History of CVA (cerebrovascular accident): Plan: History CVA in 1996 continu Aspirin Continue atorvastatin (4) CAD (coronary artery disease): Plan: Non-obstructive per cardiac cath in 12/2020 Continue Aspirin, atorvastatin, metoprolol - no chest pain reported at this time (5) Hypertension: Plan: Continue metoprolol, losartan, HCTZ (6) Carotid stenosis: Plan: S/P bilateral carotid endarterectomy Plan DVT Px SCDs heparin SC Code Status DNR/DNI Admission and Anticipated Discharge Date Admission Date: May 01, 2022 Subjective Patient with CAD, aortic stenosis s/p TAVR 02/2021, HTN, HLD, h/o CVA, carotid artery disease s/p bilateral carotid endarterectomy presented with left femur and intratrochanteric fracture after fall, no s/p cephalomedullary nail post-op 05/02/2022. Patient feels well today. Denies pain in leg, chest pain, shortness of breath, n/v/d, abdominal pain, dysuria. Able to move left leg more than before. Ambulates with walker with minimal weight bearing on left leg. Review of Systems Review of Systems: All systems reviewed & are unremarkable except as noted in Subjective Physical Exam Physical Exam: General Appearance:Moderately built and nourished, no apparent distress Head: normocephalic, Atraumatic Eyes: normal inspection, EOMI Neck: supple, Trachea midline Respiratory/Chest: Normal breath sounds, CTA, No accessory muscle use Cardiovascular: S1, S2, No murmur Abdomen/GI:Soft, Non tender, Bowel sounds present Extremities/Musculoskeletal: Left hip surgical site in dressing Neurologic/Psych:AAOX3, grossly no focal neurological deficits Skin: normal color, warm Results & Data Results & Data ([facility]) Vital Signs (Past 12 Hours) Vital Signs Temp Pulse Resp BP Pulse Ox Pulse Ox O2 Del Method 05/06/22 14:56 36.9 C 76 18 144/55 H 94 Room Air 05/06/22 07:12 36.7 C 73 18 125/66 96 Room Air 05/06/22 06:17 97 O2 Del Method 05/06/22 14:56 05/06/22 07:12 05/06/22 06:17 Room Air Diagnostic Findings Laboratory Results WBC 12.87 K/ul (4.8-10.8) H 05/04/22 08:45 RBC 2.82 M/uL (4.63-6.08) L 05/04/22 08:45 Hgb 9.0 g/dl (14.0-18.0) L 05/04/22 08:45 Hct 26.7 % (40.1-51.0) L 05/04/22 08:45 MCV 94.7 fL (80.0-100.0) 05/04/22 08:45 MCH 31.9 pg (25.0-34.0) 05/04/22 08:45 MCHC 33.7 g/dL (32.0-36.0) 05/04/22 08:45 RDW Std Deviation 42.6 fL (36.4-46.3) 05/04/22 08:45 RDW Coeff of Jt 12.3 % (11.5-14.5) 05/04/22 08:45 Plt Count 187 K/uL (130-400) 05/04/22 08:45 MPV 9.6 fL (9.4-12.4) 05/04/22 08:45 Immature Gran % (Auto) 0.4 % 05/04/22 08:45 Neut % (Auto) 73.2 % 05/04/22 08:45 Lymph % (Auto) 14.1 % 05/04/22 08:45 [place] % (Auto) 10.0 % 05/04/22 08:45 Eos % (Auto) 1.9 % 05/04/22 08:45 Baso % (Auto) 0.4 % 05/04/22 08:45 Neut # (Auto) 9.43 K/uL (1.4-6.5) H 05/04/22 08:45 Lymph # (Auto) 1.81 K/uL (1.2-3.4) 05/04/22 08:45 [place] # (Auto) 1.29 K/uL (0.24-0.82) H 05/04/22 08:45 Eos # (Auto) 0.24 K/uL (0-0.50) 05/04/22 08:45 Baso # (Auto) 0.05 K/uL (0-0.2) 05/04/22 08:45 Immature Gran # (Auto) 0.05 K/uL (0.00-0.02) H 05/04/22 08:45 PT 10.5 Seconds (9.0-12.0) 05/01/22 12:10 INR 1.0 (0.9-1.1) 05/01/22 12:10 APTT 25.4 Seconds (21.0-31.0) 05/01/22 12:10 PTT Ratio 0.9 05/01/22 12:10 Sodium 138 mmol/L (136-145) 05/04/22 08:45 Potassium 4.0 mmol/L (3.5-5.1) 05/04/22 08:45 Chloride 103 mmol/L (98-107) 05/04/22 08:45 Carbon Dioxide 29 mmol/L (21-32) 05/04/22 08:45 Anion Gap 6 (3-11) 05/04/22 08:45 BUN 26 mg/dl (6-23) H 05/04/22 08:45 Creatinine 1.02 mg/dl (0.6-1.4) 05/04/22 08:45 Est Cr Clr Drug Dosing 58.6 ml/min 05/04/22 08:45 Est GFR ( Amer) 79.5 ml/min 05/04/22 08:45 Est GFR (Non-Af Amer) 68.6 ml/min 05/04/22 08:45 BUN/Creatinine Ratio 25.5 (10-20) H 05/04/22 08:45 Glucose 150 mg/dl (70-99(Fasting)) H 05/04/22 08:45 POC Glucose 109 mg/dl (70-99) H 05/05/22 12:11 Calcium 8.5 mg/dl (8.5-10.1) 05/04/22 08:45 Magnesium 1.9 mg/dl (1.7-2.4) 05/04/22 08:45 Total Bilirubin 0.5 mg/dl (0.2-1.0) 05/01/22 12:10 AST 20 U/L (13-39) 05/01/22 12:10 ALT 14 U/L (7-52) 05/01/22 12:10 Alkaline Phosphatase 75 U/L (34-104) 05/01/22 12:10 Total Protein 7.2 gm/dl (6.0-8.3) 05/01/22 12:10 Albumin 4.0 gm/dl (3.4-5.0) 05/01/22 12:10 Globulin 3.2 gm/dl (2.5-4.0) 05/01/22 12:10 Albumin/Globulin Ratio 1.3 (0.9-2) 05/01/22 12:10 Urine Color Yellow 05/01/22 13:50 Urine Appearance Clear (Clear) 05/01/22 13:50 Urine pH 6.5 (4.5-7.5) 05/01/22 13:50 Ur Specific [place] 1.016 (1.000-1.030) 05/01/22 13:50 Urine Protein Negative (Negative) 05/01/22 13:50 Urine Glucose (UA) Negative (Negative) 05/01/22 13:50 Urine Ketones Negative (Negative) 05/01/22 13:50 Urine Blood Negative (Negative) 05/01/22 13:50 Urine Nitrite Negative (Negative) 05/01/22 13:50 Urine Bilirubin Negative (Negative) 05/01/22 13:50 Urine Urobilinogen Negative (Negative) 05/01/22 13:50 Ur Leukocyte Esterase Negative (Negative) 05/01/22 13:50 SARS-CoV-2, RNA, NAAT NEGATIVE (NEGATIVE) 05/01/22 13:26 Blood Type B Positive 05/01/22 21:27 Blood Type Recheck B Positive 05/01/22 21:44 Antibody Screen NEGATIVE 05/01/22 21:27 Impressions Hip/Pelvis X-Ray 05/01/22 11:51 XR hip LT 2V w pelvis CLINICAL HISTORY: fall, hp pain TECHNIQUE: 2 views of the left hip and single frontal view of the pelvis were obtained. Comparison: None available at the time of this dictation. FINDINGS: There is a fracture of the proximal femoral shaft which may be intertrochanteric. There is apex lateral angulation. Degenerative changes are seen in the hip joint. Soft tissue swelling is seen. IMPRESSION: Left femoral shaft/intratrochanteric fracture with surrounding soft tissue swelling. ACT 112: Negative or not required by law. Electronically signed by: Calvin Mckee M.D. 05/01/2022 1:38 PM Chest X-Ray 05/01/22 13:22 XR chest 1V not portable HISTORY: Fall. Preop. Left hip fracture. COMPARISON: Chest 11/14/2017. FINDINGS: No pneumothorax. No pleural effusions. The lungs are clear. Old, healed bilateral rib fractures. Mild elevation of the right hemidiaphragm. An aortic valve prosthesis is again noted. Old, healed bilateral rib fractures. IMPRESSION: No acute process. ACT 112: Negative or not required by law. Electronically signed by: Jonas Viramontes M.D. 05/01/2022 1:39 PM Femur X-Ray 05/02/22 19:07 XR femur LT 2V routine CLINICAL HISTORY: post op long troch nail TECHNIQUE: 2 radiographic views of the left femur were obtained. Comparison: Comparison is made to left femur radiographs 05/01/2022 FINDINGS: Interval placement of a femoral sixto. Postsurgical changes are seen with associated soft tissue swelling. Fracture fragments are in anatomic alignment. IMPRESSION: Expected postoperative appearance status post placement of a medullary nail. ACT 112: Negative or not required by law. Electronically signed by: Calvin Mckee M.D. 05/02/2022 7:31 PM Medications Administered Current Inpatient Medications Acetaminophen (Acetaminophen 325 Mg Tab) 650 mg PO Q4H PRN PRN Reason: Pain or Fever Stop: 05/31/22 17:11 Last Admin: 05/06/22 10:47 Dose: 650 mg Aspirin (Aspirin 81 Mg Ectab) 81 mg PO QAM [facility] Stop: 06/04/22 08:59 Last Admin: 05/06/22 08:09 Dose: 81 mg Atorvastatin Calcium (Atorvastatin 20 Mg Tab) 20 mg PO DAILY [facility] Stop: 06/01/22 08:59 Last Admin: 05/06/22 08:09 Dose: 20 mg Bisacodyl (Bisacodyl 10 Mg Supp) 10 mg [place] DAILY PRN PRN Reason: Constipation Stop: 06/01/22 19:57 Docusate Sodium (Docusate Sodium 100 Mg Cap) 100 mg PO BID [facility] Stop: 06/01/22 20:59 Last Admin: 05/06/22 08:09 Dose: 100 mg Heparin Sodium (Porcine) (Heparin Sod 5,000 Unit/0.5 Ml Vial) 5,000 units SQ Q8 [facility] Stop: 06/03/22 13:59 Last Admin: 05/06/22 14:59 Dose: 5,000 units Hydrochlorothiazide (Hydrochlorothiazide 25 Mg Tab) 12.5 mg PO QAM [facility] Stop: 06/04/22 08:59 Last Admin: 05/06/22 08:10 Dose: 12.5 mg Hydroxyzine HCl (Hydroxyzine Hcl 25 Mg Tab) 25 mg PO HS PRN PRN Reason: sleep Stop: 06/05/22 14:23 Losartan Potassium (Losartan Potassium 50 Mg Tab) 50 mg PO DAILY [facility] Stop: 06/01/22 08:59 Last Admin: 05/06/22 08:10 Dose: 50 mg Magnesium Hydroxide (Magnesium Hydroxide Susp 30 Ml Udc) 30 ml PO Q6H PRN PRN Reason: Constipation Stop: 06/01/22 19:57 Metoclopramide HCl (Metoclopramide Hcl Inj 5 Mg/Ml 2 Ml Vial) 10 mg IV Q6H PRN PRN Reason: Nausea And Vomiting Stop: 06/01/22 19:57 Metoprolol Tartrate (Metoprolol Tartrate 25 Mg Tab) 12.5 mg PO DAILY [facility] Stop: 06/01/22 08:59 Last Admin: 05/06/22 08:09 Dose: 12.5 mg Morphine Sulfate (Morphine Sulfate 2 Mg/Ml Carp) 2 mg IV Q3H PRN PRN Reason: Severe Pain Stop: 05/15/22 17:11 Multivitamins (Multivitamin Tab) 1 tab PO QAM [facility] Stop: 06/02/22 08:59 Last Admin: 05/06/22 08:09 Dose: 1 tab Naloxone HCl (Naloxone Hcl 0.4 Mg/1 Ml Vial/Carp) 0.1 mg IV Q5M PRN PRN Reason: Oversedation/Resp Depression Stop: 06/01/22 19:57 Ondansetron HCl (Ondansetron Inj 2 Mg/Ml 2 Ml Vial) 4 mg IV Q6H PRN PRN Reason: Nausea And Vomiting Stop: 06/01/22 19:57 Oxycodone HCl (Oxycodone Hcl Ir 5 Mg Tab (Immediate Release)) 5 mg PO Q4H PRN PRN Reason: MODERATE Pain (4,5,6) & Pre PT Stop: 05/15/22 17:11 Last Admin: 05/02/22 11:58 Dose: 5 mg Pantoprazole Sodium (Pantoprazole 40 Mg Tab) 40 mg PO DAILY [facility] Stop: 06/01/22 08:59 Last Admin: 05/06/22 08:09 Dose: 40 mg Polyethylene Glycol (Polyethylene (Miralax) 17 Gm Pack) 17 gm PO DAILY PRN PRN Reason: Constipation Stop: 06/01/22 12:12 Last Admin: 05/06/22 08:12 Dose: 17 gm Sennosides (Senna 8.6 Mg Tab) 17.2 mg PO HS [facility] Stop: 06/01/22 20:59 Last Admin: 05/05/22 20:23 Dose: 17.2 mg
[2022-05-06] MEDS: SENNA 8.6 MG TAB PO SCH (21:04)
[2022-05-07] MEDS: HEPARIN SOD 5,000 UNIT/0.5 ML VIAL SQ SCH ×3 (05:50→20:13)
[2022-05-07 06:58] LABS: Hematocrit (blood only) 27.1 % (40.1-51.0); Mean Corpuscular Hemoglobin 31.3 pg (25.0-34.0); Mean Corpuscular Hgb Conc 33.2 g/dL (32.0-36.0); Mean Corpuscular Volume 94.1 fL (80.0-100.0); Mean Platelet Volume 9.4 fL (9.4-12.4); Platelet Count 265 K/uL (130-400); RDW Standard Deviation 42.1 fL (36.4-46.3); Red Blood Count 2.88 M/uL (4.63-6.08); White Blood Count 10.08 K/ul (4.8-10.8)
[2022-05-07] MEDS: DOCUSATE SODIUM 100 MG CAP PO SCH ×2 (08:28→20:12)
[2022-05-07] MEDS: METOPROLOL TARTRATE 25 MG TAB PO SCH (08:29)
[2022-05-07] MEDS: LOSARTAN POTASSIUM 50 MG TAB PO SCH (08:29)
[2022-05-07] MEDS: hydroCHLOROthiazide 25 MG TAB PO SCH (08:29)
[2022-05-07] MEDS: MULTIVITAMIN TAB PO SCH (08:29)
[2022-05-07] MEDS: ATORVASTATIN 20 MG TAB PO SCH (08:29)
[2022-05-07] MEDS: ASPIRIN 81 MG ECTAB PO SCH (08:30)
[2022-05-07] MEDS: PANTOprazole 40 MG TAB PO SCH (08:30)
[2022-05-07] MEDS: ACETAMINOPHEN 325 MG TAB PO PRN (13:05)
--- NOTE | 2022-05-07 15:56 | Hospitalist Progress Note ---
Date of Service May 07, 2022 Assessment & Plan (1) Intertrochanteric fracture of left femur: Plan: Patient is an 81 yr male with H/O CAD, aortic stenosis s/p TAVR in 02/2021, HTN, HLD, CVA, carotid disease s/p bilateral carotid endarterectomy presented with left femur and intratrochanteric fracture after fall, no s/p cephalomedullary nail post-op #2. Communicated intertrochanteric fracture of the left femur -Hip/Pelvis Xray: Left femoral shaft/intratrochanteric fracture with surrounding soft tissue swelling -S/P Left hip cephalomedullary nailing of intertrochanteric femur fracture with subtrochanteric extension By Dr. Shelby on 05/02/22 - POD#2 Fall precautions Pain control Bowel regimen to prevent constipation Appreciate orthopedics input Will benefit from Rehab placement - pending placement Monitor CBC - stable (2) Hx of aortic valve stenosis: Plan: H/O TAVR in 02/2021 Continue home medications (3) History of CVA (cerebrovascular accident): Plan: History CVA in 1996 continu Aspirin Continue atorvastatin (4) CAD (coronary artery disease): Plan: Non-obstructive per cardiac cath in 12/2020 Continue Aspirin, atorvastatin, metoprolol - no chest pain reported at this time (5) Hypertension: Plan: Continue metoprolol, losartan, HCTZ (6) Carotid stenosis: Plan: S/P bilateral carotid endarterectomy Plan DVT Px SCDs heparin SC Code Status DNR/DNI Admission and Anticipated Discharge Date Admission Date: May 01, 2022 Subjective Patient with CAD, aortic stenosis s/p TAVR 02/2021, HTN, HLD, h/o CVA, carotid artery disease s/p bilateral carotid endarterectomy presented with left femur and intratrochanteric fracture after fall, no s/p cephalomedullary nail post-op 05/02/2022. Patient feels well today. Denies pain in leg, chest pain, shortness of breath, n/v/d, abdominal pain, dysuria. Able to move left leg more than before. Ambulates with walker with minimal weight bearing on left leg. Review of Systems Review of Systems: All systems reviewed & are unremarkable except as noted in Subjective Physical Exam Physical Exam: General Appearance:Moderately built and nourished, no apparent distress Head: normocephalic, Atraumatic Eyes: normal inspection, EOMI Neck: supple, Trachea midline Respiratory/Chest: Normal breath sounds, CTA, No accessory muscle use Cardiovascular: S1, S2, No murmur Abdomen/GI:Soft, Non tender, Bowel sounds present Extremities/Musculoskeletal: Left hip surgical site in dressing Neurologic/Psych:AAOX3, grossly no focal neurological deficits Skin: normal color, warm Results & Data Results & Data ([facility]) Vital Signs (Past 12 Hours) Vital Signs Temp Pulse Resp BP Pulse Ox O2 Del Method 05/07/22 15:04 36.8 C 71 17 102/57 L 96 Room Air 05/07/22 07:51 36.6 C 67 17 144/74 H 96 Room Air Diagnostic Findings Laboratory Results WBC 10.08 K/ul (4.8-10.8) 05/07/22 06:29 RBC 2.88 M/uL (4.63-6.08) L 05/07/22 06:29 Hgb 9.0 g/dl (14.0-18.0) L 05/07/22 06:29 Hct 27.1 % (40.1-51.0) L 05/07/22 06:29 MCV 94.1 fL (80.0-100.0) 05/07/22 06:29 MCH 31.3 pg (25.0-34.0) 05/07/22 06:29 MCHC 33.2 g/dL (32.0-36.0) 05/07/22 06:29 RDW Std Deviation 42.1 fL (36.4-46.3) 05/07/22 06:29 RDW Coeff of Jt 12.0 % (11.5-14.5) 05/07/22 06:29 Plt Count 265 K/uL (130-400) 05/07/22 06:29 MPV 9.4 fL (9.4-12.4) 05/07/22 06:29 Immature Gran % (Auto) 0.4 % 05/04/22 08:45 Neut % (Auto) 73.2 % 05/04/22 08:45 Lymph % (Auto) 14.1 % 05/04/22 08:45 Tate % (Auto) 10.0 % 05/04/22 08:45 Eos % (Auto) 1.9 % 05/04/22 08:45 Baso % (Auto) 0.4 % 05/04/22 08:45 Neut # (Auto) 9.43 K/uL (1.4-6.5) H 05/04/22 08:45 Lymph # (Auto) 1.81 K/uL (1.2-3.4) 05/04/22 08:45 Tate # (Auto) 1.29 K/uL (0.24-0.82) H 05/04/22 08:45 Eos # (Auto) 0.24 K/uL (0-0.50) 05/04/22 08:45 Baso # (Auto) 0.05 K/uL (0-0.2) 05/04/22 08:45 Immature Gran # (Auto) 0.05 K/uL (0.00-0.02) H 05/04/22 08:45 PT 10.5 Seconds (9.0-12.0) 05/01/22 12:10 INR 1.0 (0.9-1.1) 05/01/22 12:10 APTT 25.4 Seconds (21.0-31.0) 05/01/22 12:10 PTT Ratio 0.9 05/01/22 12:10 Sodium 138 mmol/L (136-145) 05/04/22 08:45 Potassium 4.0 mmol/L (3.5-5.1) 05/04/22 08:45 Chloride 103 mmol/L (98-107) 05/04/22 08:45 Carbon Dioxide 29 mmol/L (21-32) 05/04/22 08:45 Anion Gap 6 (3-11) 05/04/22 08:45 BUN 26 mg/dl (6-23) H 05/04/22 08:45 Creatinine 1.02 mg/dl (0.6-1.4) 05/04/22 08:45 Est Cr Clr Drug Dosing 58.6 ml/min 05/04/22 08:45 Est GFR ( Amer) 79.5 ml/min 05/04/22 08:45 Est GFR (Non-Af Amer) 68.6 ml/min 05/04/22 08:45 BUN/Creatinine Ratio 25.5 (10-20) H 05/04/22 08:45 Glucose 150 mg/dl (70-99(Fasting)) H 05/04/22 08:45 POC Glucose 109 mg/dl (70-99) H 05/05/22 12:11 Calcium 8.5 mg/dl (8.5-10.1) 05/04/22 08:45 Magnesium 1.9 mg/dl (1.7-2.4) 05/04/22 08:45 Total Bilirubin 0.5 mg/dl (0.2-1.0) 05/01/22 12:10 AST 20 U/L (13-39) 05/01/22 12:10 ALT 14 U/L (7-52) 05/01/22 12:10 Alkaline Phosphatase 75 U/L (34-104) 05/01/22 12:10 Total Protein 7.2 gm/dl (6.0-8.3) 05/01/22 12:10 Albumin 4.0 gm/dl (3.4-5.0) 05/01/22 12:10 Globulin 3.2 gm/dl (2.5-4.0) 05/01/22 12:10 Albumin/Globulin Ratio 1.3 (0.9-2) 05/01/22 12:10 Urine Color Yellow 05/01/22 13:50 Urine Appearance Clear (Clear) 05/01/22 13:50 Urine pH 6.5 (4.5-7.5) 05/01/22 13:50 Ur Specific [place] 1.016 (1.000-1.030) 05/01/22 13:50 Urine Protein Negative (Negative) 05/01/22 13:50 Urine Glucose (UA) Negative (Negative) 05/01/22 13:50 Urine Ketones Negative (Negative) 05/01/22 13:50 Urine Blood Negative (Negative) 05/01/22 13:50 Urine Nitrite Negative (Negative) 05/01/22 13:50 Urine Bilirubin Negative (Negative) 05/01/22 13:50 Urine Urobilinogen Negative (Negative) 05/01/22 13:50 Ur Leukocyte Esterase Negative (Negative) 05/01/22 13:50 SARS-CoV-2, RNA, NAAT NEGATIVE (NEGATIVE) 05/01/22 13:26 Blood Type B Positive 05/01/22 21:27 Blood Type Recheck B Positive 12/21/22 21:44 Antibody Screen NEGATIVE 05/01/22 21:27 Impressions Hip/Pelvis X-Ray 05/01/22 11:51 XR hip LT 2V w pelvis CLINICAL HISTORY: fall, hp pain TECHNIQUE: 2 views of the left hip and single frontal view of the pelvis were obtained. Comparison: None available at the time of this dictation. FINDINGS: There is a fracture of the proximal femoral shaft which may be intertrochanteric. There is apex lateral angulation. Degenerative changes are seen in the hip joint. Soft tissue swelling is seen. IMPRESSION: Left femoral shaft/intratrochanteric fracture with surrounding soft tissue swelling. ACT 112: Negative or not required by law. Electronically signed by: Calvin Mckee M.D. 05/01/2022 1:38 PM Chest X-Ray 05/01/22 13:22 XR chest 1V not portable HISTORY: Fall. Preop. Left hip fracture. COMPARISON: Chest 11/14/2017. FINDINGS: No pneumothorax. No pleural effusions. The lungs are clear. Old, healed bilateral rib fractures. Mild elevation of the right hemidiaphragm. An aortic valve prosthesis is again noted. Old, healed bilateral rib fractures. IMPRESSION: No acute process. ACT 112: Negative or not required by law. Electronically signed by: Jonas Viramontes M.D. 05/01/2022 1:39 PM Femur X-Ray 05/02/22 19:07 XR femur LT 2V routine CLINICAL HISTORY: post op long troch nail TECHNIQUE: 2 radiographic views of the left femur were obtained. Comparison: Comparison is made to left femur radiographs 05/01/2022 FINDINGS: Interval placement of a femoral sixto. Postsurgical changes are seen with associated soft tissue swelling. Fracture fragments are in anatomic alignment. IMPRESSION: Expected postoperative appearance status post placement of a medullary nail. ACT 112: Negative or not required by law. Electronically signed by: Calvin Mckee M.D. 05/02/2022 7:31 PM Medications Administered Current Inpatient Medications Acetaminophen (Acetaminophen 325 Mg Tab) 650 mg PO Q4H PRN PRN Reason: Pain or Fever Stop: 05/31/22 17:11 Last Admin: 05/07/22 13:05 Dose: 650 mg Aspirin (Aspirin 81 Mg Ectab) [facility] Stop: 06/04/22 08:59 Last Admin: 05/07/22 08:30 Dose: 81 mg Atorvastatin Calcium (Atorvastatin 20 Mg Tab) 20 mg PO DAILY [facility] Stop: 06/01/22 08:59 Last Admin: 05/07/22 08:29 Dose: 20 mg Bisacodyl (Bisacodyl 10 Mg Supp) 10 mg IA DAILY PRN PRN Reason: Constipation Stop: 06/01/22 19:57 Docusate Sodium (Docusate Sodium 100 Mg Cap) 100 mg PO BID [facility] Stop: 06/01/22 20:59 Last Admin: 05/07/22 08:28 Dose: 100 mg Heparin Sodium (Porcine) (Heparin Sod 5,000 Unit/0.5 Ml Vial) 5,000 units SQ Q8 [facility] Stop: 06/03/22 13:59 Last Admin: 05/07/22 14:55 Dose: 5,000 units Hydrochlorothiazide (Hydrochlorothiazide 25 Mg Tab) 12.5 mg PO QAM [facility] Stop: 06/04/22 08:59 Last Admin: 05/07/22 08:29 Dose: 12.5 mg Hydroxyzine HCl (Hydroxyzine Hcl 25 Mg Tab) 25 mg PO HS PRN PRN Reason: sleep Stop: 06/05/22 14:23 Last Admin: 05/06/22 21:04 Dose: 25 mg Losartan Potassium (Losartan Potassium 50 Mg Tab) 50 mg PO DAILY [facility] Stop: 06/01/22 08:59 Last Admin: 05/07/22 08:29 Dose: 50 mg Magnesium Hydroxide (Magnesium Hydroxide Susp 30 Ml Udc) 30 ml PO Q6H PRN PRN Reason: Constipation Stop: 06/01/22 19:57 Metoclopramide HCl (Metoclopramide Hcl Inj 5 Mg/Ml 2 Ml Vial) 10 mg IV Q6H PRN PRN Reason: Nausea And Vomiting Stop: 06/01/22 19:57 Metoprolol Tartrate (Metoprolol Tartrate 25 Mg Tab) 12.5 mg PO DAILY [facility] Stop: 06/01/22 08:59 Last Admin: 05/07/22 08:29 Dose: 12.5 mg Morphine Sulfate (Morphine Sulfate 2 Mg/Ml Carp) 2 mg IV Q3H PRN PRN Reason: Severe Pain Stop: 05/15/22 17:11 Multivitamins (Multivitamin Tab) 1 tab PO QAM [facility] Stop: 06/02/22 08:59 Last Admin: 05/07/22 08:29 Dose: 1 tab Naloxone HCl (Naloxone Hcl 0.4 Mg/1 Ml Vial/Carp) 0.1 mg IV Q5M PRN PRN Reason: Oversedation/Resp Depression Stop: 06/01/22 19:57 Ondansetron HCl (Ondansetron Inj 2 Mg/Ml 2 Ml Vial) 4 mg IV Q6H PRN PRN Reason: Nausea And Vomiting Stop: 06/01/22 19:57 Oxycodone HCl (Oxycodone Hcl Ir 5 Mg Tab (Immediate Release)) 5 mg PO Q4H PRN PRN Reason: MODERATE Pain (4,5,6) & Pre PT Stop: 05/15/22 17:11 Last Admin: 05/02/22 11:58 Dose: 5 mg Pantoprazole Sodium (Pantoprazole 40 Mg Tab) 40 mg PO DAILY [facility] Stop: 06/01/22 08:59 Last Admin: 05/07/22 08:30 Dose: 40 mg Polyethylene Glycol (Polyethylene (Miralax) 17 Gm Pack) 17 gm PO DAILY PRN PRN Reason: Constipation Stop: 06/01/22 12:12 Last Admin: 05/06/22 08:12 Dose: 17 gm Sennosides (Senna 8.6 Mg Tab) 17.2 mg PO HS [facility]ANDY Stop: 06/01/22 20:59 Last Admin: 05/06/22 21:04 Dose: 17.2 mg
[2022-05-07] MEDS: SENNA 8.6 MG TAB PO SCH (20:12)
[2022-05-08] MEDS: HEPARIN SOD 5,000 UNIT/0.5 ML VIAL SQ SCH (05:00)
[2022-05-08] MEDS: LOSARTAN POTASSIUM 50 MG TAB PO SCH (09:08)
[2022-05-08] MEDS: METOPROLOL TARTRATE 25 MG TAB PO SCH (09:08)
[2022-05-08] MEDS: DOCUSATE SODIUM 100 MG CAP PO SCH (09:08)
[2022-05-08] MEDS: ASPIRIN 81 MG ECTAB PO SCH (09:08)
[2022-05-08] MEDS: ATORVASTATIN 20 MG TAB PO SCH (09:08)
[2022-05-08] MEDS: PANTOprazole 40 MG TAB PO SCH (09:08)
[2022-05-08] MEDS: MULTIVITAMIN TAB PO SCH (09:08)
[2022-05-08] MEDS: hydroCHLOROthiazide 25 MG TAB PO SCH (09:09)
--- NOTE | 2022-05-08 11:04 | Hospitalist Progress Note ---
Date of Service May 08, 2022 Assessment & Plan (1) Intertrochanteric fracture of left femur: Plan: per Dr. Butler's notes with addendum: Patient is an 81 yr male with H/O CAD, aortic stenosis s/p TAVR in 02/2021, HTN, HLD, CVA, carotid disease s/p bilateral carotid endarterectomy presented with left femur and intratrochanteric fracture after fall, no s/p cephalomedullary nail post-op #2. Communicated intertrochanteric fracture of the left femur -Hip/Pelvis Xray: Left femoral shaft/intratrochanteric fracture with surrounding soft tissue swelling -S/P Left hip cephalomedullary nailing of intertrochanteric femur fracture with subtrochanteric extension By Dr. Shelby on 05/02/22 - POD#3 -stable overall - Heparin SC for DVT prophylaxis - continue PT/OT - follow up with Dr. Shelby- UOC in 1 week (2) Hx of aortic valve stenosis: Plan: H/O TAVR in 02/2021 Continue home medications (3) History of CVA (cerebrovascular accident): Plan: History CVA in 1996 continu Aspirin Continue atorvastatin (4) CAD (coronary artery disease): Plan: Non-obstructive per cardiac cath in 12/2020 Continue Aspirin, atorvastatin, metoprolol - no cardiac symptoms (5) Hypertension: Plan: Continue metoprolol, losartan, HCTZ (6) Carotid stenosis: Plan: S/P bilateral carotid endarterectomy Plan DVT Px SCDs heparin SC Code Status DNR/DNI Admission and Anticipated Discharge Date Admission Date: May 01, 2022 Subjective ff up for L hip fracture, s/p surgery, etc seen sitting up in chair, comfortable states he feels fine overall ambulating in the room with no problem very minimal discomfort on the left hip no chest pain, dyspnea, palpitations, dizziness no other symptoms states he is ready to transition to [facility] today Review of Systems Review of Systems: all noted and negative except for above Physical Exam Physical Exam: General- oriented x 3, not in distress, speaks in sentences with no effort or accessory muscle use Eyes- anicteric Neck- no JVD Lungs- clear breath sounds bilaterally, no rales/wheezes Heart- normal rate, regular rhythm; no murmurs Abdomen- normal bowel sounds, nondistended, soft, nontender Extremities- no pretibial edema, no calf tenderness L hip/thigh - wound healing well, no bleeding or discharge Neuro- alert, oriented x 3; no gross focal neurologic deficits Skin- warm & dry Results & Data Results & Data ([facility]) Vital Signs (Past 12 Hours) Vital Signs Temp Pulse Pulse Resp BP Pulse Ox O2 Del Method 05/08/22 07:37 36.6 C 79 18 137/74 97 Room Air 05/07/22 23:15 36.8 C 75 16 123/64 93 Room Air all noted and reviewed including below
--- NOTE | 2022-05-08 11:07 | Discharge Summary ---
Discharge Summary Date of Service May 08, 2022 Notes For Next Care Provider Please refer to hospital course below. Medication Changes From Visit Heparin SC BID Admission HPI Per Admitting Provider Patient is 81 y/o M with PMH CAD, aortic stenosis s/p TAVR in 02/2021, HTN, HLD, CVA, carotid disease s/p bilateral carotid endarterectomy presented to ER with complaint of fall and left hip pain. Patient states today was carrying ladder and put ladder on ground and stepped back and lost balance falling on to left side. Was unable to get up or put weight on left leg. Denies hitting head, dizziness, CP, SOB. Denies any other injury. Patient reports at baseline is very active. He works and has his own [employer] business, also has [employer]. Denies fever/chills, diaphoresis, N/V/D/C, LIRIANO, dizziness, syncope, vision changes, neck pain, CP, SOB, orthopnea, palpitations, cough, sore throat, choking, otalgia, rhinorrhea, abdominal pain, paresthesias, extremity edema, rashes, urinary symptoms. Admission Exam Per Admitting Provider General: no distress, WDWN Head: normocephalic, atraumatic Eyes: conjunctiva non-injected, anicteric ENT: normal inspection external ears, nose, mucous membranes moist Neck: supple, trachea midline Lungs: clear, no respiratory distress, no wheezing/rhonchi/rales CV: RRR, + murmur, no pretibial edema Abd: normal BS, soft, non-tender Ext: no cyanosis, no calf tenderness; LLE: +edema to left hip and proximal leg. +tenderness to palpation anteiror and lateral proximal leg. No ROM tested. Distal pulses intact, sensation to light touch intact. Remaining extremities with ROM intact Neuro: A&O x 3, no focal deficits noted, normal affect Skin: warm, dry Principal Dx & Hospital Course #1 = Principal Diagnosis (1) Intertrochanteric fracture of left femur: per Dr. Butler's notes with addendum: Patient is an 81 yr male with H/O CAD, aortic stenosis s/p TAVR in 02/2021, HTN, HLD, CVA, carotid disease s/p bilateral carotid endarterectomy presented with left femur and intratrochanteric fracture after fall, no s/p cephalomedullary nail post-op #2. Communicated intertrochanteric fracture of the left femur -Hip/Pelvis Xray: Left femoral shaft/intratrochanteric fracture with surrounding soft tissue swelling -S/P Left hip cephalomedullary nailing of intertrochanteric femur fracture with subtrochanteric extension By Dr. Shelby on 05/02/22 - POD#3 -stable overall - Heparin SC for DVT prophylaxis - continue PT/OT - follow up with Dr. Shelby- UOC in 1 week (2) Hx of aortic valve stenosis: H/O TAVR in 02/2021 Continue home medications (3) History of CVA (cerebrovascular accident): History CVA in 1996 continu Aspirin Continue atorvastatin (4) CAD (coronary artery disease): Non-obstructive per cardiac cath in 12/2020 Continue Aspirin, atorvastatin, metoprolol - no cardiac symptoms (5) Hypertension: Continue metoprolol, losartan, HCTZ (6) Carotid stenosis: S/P bilateral carotid endarterectomy Plan DVT Px SCDs heparin SC Code Status DNR/DNI Discharge Exam General- oriented x 3, not in distress, speaks in sentences with no effort or accessory muscle use Eyes- anicteric Neck- no JVD Lungs- clear breath sounds bilaterally, no rales/wheezes Heart- normal rate, regular rhythm; no murmurs Abdomen- normal bowel sounds, nondistended, soft, nontender Extremities- no pretibial edema, no calf tenderness L hip/thigh - wound healing well, no bleeding or discharge Neuro- alert, oriented x 3; no gross focal neurologic deficits Skin- warm & dry Updated Medication List Medication Instructions Recorded Confirmed Type atorvastatin 20 mg tablet 20 mg PO DAILY 12/12/20 05/01/22 History hydrochlorothiazide 12.5 mg tablet 12.5 mg PO DAILY 12/12/20 05/01/22 History multivitamin 1 tab DAILY 12/12/20 05/01/22 History L.acidophil-L.casei-B.bifid-B.longum-FOS 1 cap PO DAILY 05/01/22 05/01/22 History 2 billion cell-50 mg capsule (Probiotic Blend) amoxicillin 500 mg capsule 2,000 mg PO UD PRN Other 05/01/22 05/01/22 History aspirin 81 mg tablet,delayed 81 mg PO DAILY 05/01/22 05/01/22 History release losartan 50 mg tablet 50 mg PO DAILY 05/01/22 05/01/22 History metoprolol tartrate 25 mg tablet 12.5 mg PO DAILY 05/01/22 05/01/22 History omeprazole 20 mg capsule,delayed 40 mg PO DAILY 05/01/22 05/01/22 History release aspirin 81 mg tablet,delayed 81 mg PO BID 4 weeks #56 tabs 05/07/22 Rx release docusate sodium 100 mg capsule 100 mg PO BID PRN constipation #20 05/07/22 Rx caps sennosides 8.6 mg tablet (Senokot) 17.2 mg PO HS PRN constipation #20 05/07/22 Rx tabs heparin, porcine (PF) 5,000 5,000 unit (0.5 mL) subcut Q12 30 05/08/22 Rx unit/0.5 mL injection syringe days #30 mL Hospital Stay Data Consultations 05/01/22 13:52 ED Decision to Admit Stat 05/01/22 17:12 Consult Anesthesiology Routine Consult Orthopedic Surgery Routine Procedures Performed Operation Date: 05/02/22 08:20 Actual Procedures p Left Hip Cephalomedullary Nailing of Intertrochanteric/Subtrochanteric Femur Fracture(Left) - Charly Shelby M.D. Diagnostic Imagining Performed 05/02/22 FL femur LT 2V Routine Pending Results Patient Have Any Pending Studies at Discharge: No Discharge Instructions Given to Patient (Per Discharging Provider) You were admitted with left femur fracture. Orthopedic surgery took you to the OR and repaired it. You were seen by Physical therapy who recommended rehab as you are not full weight bearing on your left leg. Please follow up with orthoped ic surgery in 2 weeks from surgery date. Total Time Total Time Spent Total Time Spent (In Minutes): >30 minutes
[2022-05-08] MEDS: ACETAMINOPHEN 325 MG TAB PO PRN (11:43)
[2022-05-08] MEDS ORDERED: HEPARIN SOD 5,000 UNIT/0.5 ML VIAL SQ SCH (21:00)
== END 2022-05-08 12:30 | DRG 482 ==
LOC: ED 11:22 → SUATTDRO 15:10 → 3E 15:10

== ENCOUNTER 2024-07-03 14:05 | Inpatient (IN) ==
[~2024-07-03 14:05] MED LIST: RAPID SEQUENCE INDUCTION BAG ONE
--- OUTSIDE RECORDS SUMMARY | 2024-07-03 14:09 | External Medical Summary ---
Author Name Unknown Address Unknown Organization [id number]:[facility] [place] - [address] [facility] [place] [address] Laboratory Report Ordering Provider Test Date Status CELY ESCALONA 06/29/2024 13:10:11 Final Observation Date Value Abnormality Reference (Units ) Status Triglyceride 06/29/2024 13:10:11 102 <=174 ( mg/dL) Final Triglyceride Reference Range s (mg/dL):
<150 Acceptable
150-174 Borderline high
175-499 High
>=500 Very high Cholesterol 06/29/2024 13:10:11 127 <200 (mg /dL) Final Total Cholesterol Reference Ranges (mg/dL):
<200 Desirable
200-239 Borderline high
>=240 High HDL 06/29/2024 13:10:11 48 >39 (mg/dL ) Final HDL Cholesterol Reference Ra nges (mg/dL):
>=60 High (Desirable)
<50 Low (Undesirable) For Females
<40 Low (Undesirable) For Males NON-HDL CHOLESTEROL 06/29/2024 13:10:11 79 <=159 (mg/dL) Final Non-HDL Cholesterol Referenc e Range (mg/dL):
<100 Target level for high risk ASCVD patient
<130 Optimal for general population
130-159 Near optimal for general population
160-189 Borderline High
190-219 High
>=220 Very High LDL, (calculated) 06/29/2024 13:10:11 59 <= 129 (mg/dL) Final LDL Cholesterol Reference Ra nges (mg/dL):
<70 Target level for high risk ASCVD patient
<100 Optimal for general population
100-129 Near optimal for general population
130-159 Borderline high
160-189 High
>=190 Very high Performing Location [facility] [place] - [address] [facility] [id number]
--- OUTSIDE RECORDS SUMMARY | 2024-07-03 14:09 | External Medical Summary | Summary of Care ---
Author Name Unknown Organization [facility] Address [address] [place] [place] [address] Phone [phone] Care Team Providers Care Clerical Secretary Name Role Phone Gretta Mendez MD Primary Care Provide r Reason for Visit * Reason Comments eRx-Medication Refill Encounter Details Date Type Department Care Team (Late st Contact Info) Description 06/28/2024 Refill Family Medicine [address] [place] [phone] Gretta Mendez MD [address] [place] [address] [place], [place] [id number] Allergies No known active allergiesdocumented as of this encounter (statuses as of 06/29/2024) Medications COMPLETE MULTIVITAMIN/MINERA L PO LIQD 1 tab once daily Active Amoxicillin 500 MG Oral Capsule (Amoxil) Take 4 capsules 1 hour prior to any dental work 4 Cap 4 Active Probiotic Acidophilus Oral Capsule Take by mouth daily. Active Aspirin 81 MG Oral Tablet Chewable Take 1 Tablet by mouth in the morning. 100 Tablet Active Acetaminophen ER 650 MG Oral Tablet Extended Release (Tylenol ER) Take 1 Tablet by mouth every 8 hours as needed. Alternate with Advil Active Vitamin D3 1000 UNIT Oral Capsule Take by mouth daily. Active Prolia 60 MG/ML Subcutaneous Solution Prefilled Syringe (Denosumab) Inject 60 mg under the skin once. Every 6 months Active Macular Health Formula Oral Capsule Take by mouth. Active Donepezil HCl 10 MG Oral Tablet (Aricept) Take 1 Tablet by mouth in the morning. Take with largest meal of the day.. 90 Tablet 2 024 Active Metoprolol Tartrate 25 MG Oral Tablet (Lopressor)Indicati ons:Paroxysmal atrial fibrillation (HCC),PSVT (paroxysmal supraventricular tachycardia) (HCC) TAKE 1/2 TABLET BY MOUTH EVERY DAY 45 Tablet 3 024 Active hydroCHLOROthiazide 12.5 MG Oral CapsuleIndications: HTN, goal below 140/90 TAKE ONE CAPSULE BY MOUTH IN THE MORNING 90 Capsule 1 024 Active Losartan Potassium 50 MG Oral Tablet (Cozaar)Indications :HTN, goal below 140/90 TAKE ONE TABLET BY MOUTH IN THE MORNING 90 Tablet 1 024 Active Sildenafil Citrate 100 MG Oral TabletIndications:S exual function problem TAKE 1 TAB BY MOUTH 1-4 HOURS PRIOR TO INTERCOURSE. ; NO MORE THAN 1 DOSE IN 24 HOURS 40 Tablet 1 024 Active Vitamin B-12 1000 MCG Oral Tablet (Cyanocobalamin)Ind ications:Memory loss,Vitamin B12 deficiency TAKE ONE TABLET EVERY DAY 90 Tablet 3 024 Active Divalproex Sodium ER 250 MG Oral Tablet Extended Release 24 Hour (Depakote ER) 1 tablet at night 30 Tablet 5 024 Active Atorvastatin Calcium 40 MG Oral Tablet (Lipitor)Indication s:Dyslipidemia, goal LDL below 100 TAKE ONE TABLET BY MOUTH EVERY MORNING 90 Tablet 025 Active Tamsulosin HCl 0.4 MG Oral Capsule (Flomax)Indications :Decreased urine stream TAKE ONE CAPSULE BY MOUTH EVERY MORNING 90 Capsule 1 025 Active Clopidogrel Bisulfate 75 MG Oral Tablet (pLAVix) TAKE ONE TABLET BY MOUTH EVERY MORNING 90 Tablet 2 025 Active Clopidogrel Bisulfate 75 MG Oral Tablet (Plavix) Take 1 Tablet by mouth in the morning. 90 Tablet 1 024 2024 Discontinued documented as of this encounter (statuses as of 06/29/2024) Active Problems Problem Noted Date Diagnosed Date Permanent atrial fibrillation 09/10/2023 S/P placement of cardiac pacemaker 08/18/2023 Heart block 08/18/2023 Dementia in Alzheimer's disease 08/18/2023 Age related osteoporosis 02/06/2023 BPH without obstruction/lower urinary tract symp toms 11/06/2022 Hemiplegia and hemiparesis f ollowing cerebral infarction affecting left non-dominant side 05/22/2022 Atherosclerosis of [place] co ronary artery without angina pectoris 05/22/2022 Closed displaced intertrocha nteric fracture of left femur with routine healing 05/08/2022 S/P TAVR (transcatheter aortic valve replacement ) 02/21/2021 S/p bilateral carotid endarterectomy 12/15/2020 Atherosclerosis of aorta 08/28/2018 Paroxysmal atrial fibrillation 11/25/2017 Altitude sickness, subsequent encounter 10/05/19 16 Hx of actinic keratosis 05/17/2015 Dyslipidemia, goal LDL below 100 08/06/2012 Bilateral carotid artery stenosis 06/25/2012 Severe aortic stenosis 06/09/2012 Carotid bruit present 06/09/2012 PSVT (paroxysmal supraventricular tachycardia) 0 12/10/2011 Sinus bradycardia 12/10/2011 Hx of skin malignancy 05/17/2011 Overview (03/30/2023): Hx AK and NMSC - 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, SCCIS L cheek 02/2018, SCCIS R forehead 05/2014, SCCIS R upper arm 05/2010 HTN, goal below 140/90 02/12/2010 CEREBROVASCULAR DZ, POST-STROKE 08/23/2008 Overview (08/25/2008): Modified per CVA protocol #8 History of TIA (transient ischemic attack) 03/24 documented as of this encounter (statuses as of 06/29/2024) Resolved Problems Problem Noted Date Diagnosed Date Resolved Date Prediabetes 04/19/2024 05/27/2024 Overview: Per Prediabetes protocol Prediabetes 09/22/2023 12/25/2023 Overview: Per Prediabetes protocol Dementia in other diseases c lassified elsewhere, unspecified severity, without behavioral disturbance, psychotic disturbance, mood disturbance, and anxiety 03/15/2022 05/22/2022 Prediabetes 06/25/2021 09/18/2022 Overview: Per Prediabetes protocol Asymptomatic bilateral carot id artery stenosis 05/20/2019 05/20/2019 Intention tremor 05/20/2019 09/12/2021 Hypertensive heart disease w ith chronic diastolic congestive heart failure 10/15/201812/15 Chronic diastolic congestive heart failure 08/28/2018 02/28/2021 Persistent atrial fibrillation 11/25/2017 11/25/2017 Chest pain 08/27/2013 12/15/2015 Carotid stenosis, non-symptomatic 07/02/2012 04/02/2013 Dyslipidemia, goal LDL below 100 02/12/2010 08/06/2012 Dyslipidemia, goal to be determined 04/18/2009 02/12/2010 Overview (04/18/2009): Per Lipid Taxonomy. HTN, goal to be determined 07/29/2008 1 Overview (03/29/2009): Modified per HTN protocol #16. TRAVEL AND MOTION 02/07/2005 04/04/2015 CVA 03/24/2003 08/25/2008 Overview (08/25/2008): Modified per CVA protocol #8 Mixed dyslipidemia 9 Overview (04/18/2009): Per Lipid Taxonomy. documented as of this encounter (statuses as of 06/29/2024) Immunizations Name Administration Dates Next Due COVID-19 mRNA, LNP-s, No Pre serve, 2-Dose Series (Moderna) 07/08/2020,06/03/2020 COVID-19 mRNA, LNP-s, PF, 18 + or 6-11Yrs (Moderna) 08/10/2021,03/12/2021 COVID-19, MRNA-LNP, 24-25, P F, 50 MCG/0.5ML, IM, 12 YRS & ABOVE (Moderna - Spikevax) 01/30/2024 IPV - Polio Virus Vaccine (Inact) 01/29/2007 Pneumococcal Conjugate Vacc, 13 Valent (Prevnar) 09/27/2014 Pneumococcal Polysaccharide PPV23 (Pneumovax) 07/15/2012 Season Influenza, Quad, PF, Adjuvanted, 65+ Yrs, IM (FLUAD) 02/29/2020 Seasonal Influenza Vac., MDV , IM, 0.5 mL (Fluzone) 03/29/2014,04/02/2013,04/01/2012,03/26,02/12/2010,01/30/2009,07/29/2008 (Deferred: Patient Refused),03/25/2006 Seasonal Influenza, PF, 6 M & above, IM , (FluLaval or Fluzone) 02/17/2017 Seasonal Influenza, Quadriva lent Hd (Fluzone Hd) 01/21/2023,01/16/2022,01/24/2021 Seasonal Influenza, Quadriva lent, No Preserve, IM 04/12/2016,04/04/2015 Seasonal Influenza, Trivalen t, Adjuvanted, 65+ YRS, PF, (Fluad) 04/07/2019 TDAP (age 10 and older)(Boostrix) 09/30/2012 Typhoid Vaccine Oral (Vivotif) 10/15/2005 Varicella Zoster Vaccine (Adult) 10/12/2007 Zoster Vaccine Recombinant (Shingrix) 06/09/2019 ,11/20/2018 documented as of this encounter Social History Tobacco Use Types Packs/Day Years Used Date Smoking Tobacco: Never Passive Smoke Exposure: Past Smokeless Tobacco: Former Chew Quit: 05/12/1991 Comments:Dad smoked as child Alcohol Use Standard Drinks/Week Comments Yes 7 (1 standard drink = 0.6 oz pur e alcohol) 1 can per day PHQ-2 Answer Date Recorded PHQ Adult Total Score 0 01/30/2024 Hunger Vital Sign Answer Date Recorded Within the past 12 months, y ou worried that your food would run out before you got the money to buy more. Never true 01/30/20 24 Within the past 12 months, t he food you bought just didn't last and you didn't have money to get more. Never true 01/30/2024 Childcare Answer Date Recorded Do you feel overwhelmed with taking care of a child, family member or friend? No 01/30/2024 Does your family need help f inding childcare? (Household - for ages 0-17 years) Not on file 01/30/2024 Clothing Answer Date Recorded Have you been unable to get clothing when it was really needed? No 01/30/2024 Is your family able to get c lothes or diapers when needed? (Household - for ages 0-17 years) Not on file 01/30/2024 Personal Safety Answer Date Recorded Do you feel unsafe or have concerns for your saf ety? No 01/30/2024 Do you have concerns for you r family's safety? (Household - for ages 0-17 years) Not on file 01/30/2024 Utilities Answer Date Recorded Do you have trouble paying y our heating, water, or electric bill? No 01/30/2024 Is your family able to pay t he heat, water, or electric bill? (Household - for ages 0-17 years) Not on file 01/30/2024 Does your family have access to good internet? (Household - for ages 0-17 years) Not on file 01/30/2024 Employment Status Answer Date Recorded Are you unemployed or without regular income? No 01/30/2024 Does the household have a [facility] source of income? (Household - for ages 0-17 years) Not on file 01/30/2024 Social Connections Answer Date Recorded How often do you feel lonely or isolated from th ose around you? Never 01/30/2024 Financial Resource Strain Answer Date R ecorded Do you have any trouble payi ng for your medications, or do you think you might in the future? No 01/30/2024 Does your family have troubl e paying for medicine? (Household - for ages 0-17 years) Not on file 01/30/2024 Transportation Needs Answer Date Record ed Do you have trouble getting a ride to medical visits or work? (Adult - for ages 18 years and over) Not on file 01/30/2024 Does your family have a hard time getting a ride to doctors visits? (Household - for ages 0-17 years) Not on file 01/30/2024 Has lack of transportation k ept you from medical appointments, meetings, work, or from getting things needed for daily living? Check all that apply. No 01/30/2024 Do you (or your family) have trouble finding or paying for a ride (transportation)? (Household - for ages 0-17 years) Not on file 01/30/2024 Housing Stability Answer Date Recorded Do you currently live in a s helter or have no steady place to sleep at night? No 01/30/2024 Do you think you are at risk of becoming homeless? (Adult - for ages 18 years and over) Not on file 01/30/2024 Does your family worry about paying for your home or becoming homeless? (Household - for ages 0-17 years) Not on file 0 01/30/2024 Are you homeless or worried that you might be in the future? No 01/30/2024 Are you (or your family) mayo eless or worried that you might be in the future? (Household - for ages 0-17 years) Not on file Food Insecurity Answer Date Recorded Do you need food for this week? No 01/30/2024 Are you able to get enough f ood for your family? (Household - for ages 0-17 years) Not on file 01/30/2024 Does your family need food t his week? (Household - for ages 0-17 years) Not on file 01/30/2024 Do you always have enough fo od for your family? (Household - for ages 0-17 years) Not on file 01/30/2024 Food Insecurity Answer Date Recorded Within the past 12 months, y ou worried that your food would run out before you got the money to buy more. Never true 01/30/20 24 Within the past 12 months, t he food you bought just didn't last and you didn't have money to get more. Never true 01/30/2024 Do you need food for this week? 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 Answer Date of Assessment Author No 02/20/2021 10:47 AM EDT Madi Ragsdale RN * Are you blind or do you have serious difficulty seeing, even when wearing glasses? Answer Date of Assessment Author No 02/20/2021 10:47 AM EDT Madi Ragsdale RN * Do you have serious difficulty walking or climbing stairs? (5 years old or older) Answer Date of Assessment Author No 02/20/2021 10:47 AM EDT Madi Ragsdale RN * Do you have difficulty dressing or bathing? (5 years old or older) Answer Date of Assessment Author No 02/20/2021 10:47 AM EDT Madi Ragsdale RN * Because of a physical, mental, or emotional condition, do you have difficulty doing errands alone such as visiting a doctors office or shopping? (15 years old or older) Answer Date of Assessment Author No 02/20/2021 10:47 AM DIDIERT Madi Ragsdale RN documented as of this encounter Mental Status * Because of a physical, mental, or emotional condition, do you have serious difficulty concentrating, remembering, or making decisions? (5 years old or older) Answer Entry Date Author No 02/20/2021 10:47 AM Madi Salgado RN documented in this encounter Miscellaneous Notes * Telephone Encounter - Bin Alvarez RPh - 06/29/2024 11:59 AM EST Signed Prescriptions: Disp Refills Clopidogrel Bisulfate 75 MG Oral Tablet (p*90 Tab*2 Sig: TAKE ONE TABLET BY MOUTH EVERY MORNINGAuthorizing Provider: David MENDEZ User: BIN ALVAREZ documented in this encounter Plan of Treatment Upcoming Encounters Date Type Department Care Team (Late st Contact Info) Description 09/03/2024 11:00 AM EDT Nurse Only Rheumatology [address] [place] [phone] [place], Nurse [address] [place] [phone] 09/10/2024 1:00 PM EDT Office Visit Family Medicine [address] [place] [phone] Raghav Lopez CRNP [address] [place] [address] [place] [address] 10/19/2024 11:20 AM EDT Office Visit Neurology [facility] [address] [place] [address] Kevin Pederson, DO [address] [place] [address] 12/24/2024 11:30 AM EDT Office Visit Cardiology, [facility] [address] [place] [address] Abram Lehman, DO [address] [place] [address] 02/02/2025 2:00 PM EDT Nurse Only Ancillary [address] [place] [address] [place], Nurse [address] [place] [address] 03/14/2025 2:00 PM EST Office Visit Rheumatology [address] [place] [phone] Edmund Banuelos CRNP [address] [place] [address] [place] [address] Health Maintenance Due Date Last Done Comments DTap/Tdap Vaccines (2 - Td or Tdap) 09/30/2022 09/30/2012, 02/07/2005, 08/28/2001 Influenza Vaccine (FLU shot) (#1) 2024 01/21/2023, 01/16/2022, 01/24/2021, Additional history exists COVID-19 Vaccine ( season) 2024 01/30/2024, 01/30/2024, 08/10/2021, Additional history exists Adult Wellness Visit 01/29/2025 01/30/2024, 01/21/2023, 01/16/2022, Additional history exists Depression Screening 01/29/2025 01/30/2024 GFR 06/02/2025 06/02/2024, 12/2024, 05/13/2024, Additional history exists DXA Scan 01/15/2026 01/16/2024, 01/16/2024 Albumin/Creatinine Ratio 02/06/2026 02/06/2023, 08/2021 Pneumococcal Vaccine: 50+ Years Completed 09/27/2014, 07/15/2012, 10/14/2002 Zoster Vaccines Completed 06/09/2019, 11/09, 10/12/2007 VITAMIN D LEVEL ONCE IN A LIFETIME-USE SMARTSET# [id number] Completed 06/03/2022 HPV (Gardasil) Vaccine Aged Out No lo nger eligible based on patient's age to complete this topic Hepatitis B Vaccine Aged Out No longe r eligible based on patient's age to complete this topic MENINGOCOCCAL (MENACTRA/MENVEO) Aged Out No longer eligible based on patient's age to complete this topic Meningitis B Vaccine (Bexsero/Trumemba) Aged Out No longer eligible based on patient's age to complete this topic documented as of this encounter Medical Devices Implanted Type Area Trick Rodeo Rider Device Identifier Shelf Expiration Date Model / Serial / Lot Catheter 5fr Flow-Pacing - [id number] Implanted:Qty: 1 on 02/20/[address] [facility] : ATRIAL FIBRILLATION [id number] 06/11/2022 [id number] / / [id number] Valve Nelsy 3 Ultra 23mm - [id number] Implanted:Qty: 1 on 02/20/2021 by Kemar Navarrete MD at [facility] [facility] exoro system [id number] 08/04/2022 [id number] / / Envista Toric Intraocular Lens Implanted:Qty: 1 on 05/13/2023 by Shaun Olivarez MD at [facility] Right: Eye BAUSCH [employer] LOMB 08/10/2023 [id number] / [id number] Description:L# [id number] - CDM Team Envista One-Piece Hydrophobic Acrylic Toric Intraocular Lens Implanted:Qty: 1 on 05/27/2023 by Shaun Olivarez MD at [facility] Left: Eye BAUSCH [employer] LOMB 11/08/2024 [id number] / [id number] Device Watchman Flx 27mm - [id number] Implanted:Qty: 1 on 11/27/2023 by Annette Lewis IV, MD at [facility] [employer] : INTRV CARD [id number] 02/06/2026 [id number] / / [id number] documented as of this encounter Advance Directives * Full Code (Latest Code Status on File) Date Activated Date Inactivated Comments 05/27/2023 8:53 AM 05/27/2023 2:57 PM This order r eflects the patients wishes and were consensually agreed upon. Question Answer Comments Discussion of Advance Directives occurred with: Patient Does the patient have a Living Will? No Does the patient have Health Care Power of Attor corine? No * Full Code Date Activated Date Inactivated Comments 05/13/2023 8:10 AM 05/13/2023 2:23 PM This order ref lects the patients wishes and were consensually agreed upon. Question Answer Comments Discussion of Advance Directives occurred with: Patient Does the patient have a Living Will? No Does the patient have Health Care Power of Attor corine? No * Full Code Date Activated Date Inactivated Comments 02/20/2021 10:33 AM 02/21/2021 6:20 PM This orde r reflects the patients wishes and were consensually agreed upon. Care Teams Clerical Secretary Relationship Specialty Start Date End Date Gretta Mendez MD [address] [place] [address] [place] [phone] PCP - General Family Medicine 01/12/21 documented as of this encounter
--- OUTSIDE RECORDS SUMMARY | 2024-07-03 14:09 | External Medical Summary | Summary of Care ---
Author Name Unknown Organization [facility] Address [address] [place] [address] Phone [phone] Care Team Providers Care Room Manager Name Role Phone Gretta Man MD Primary Care Provide r Reason for Visit * Reason Comments Outpatient Testing Encounter Details Date Type Department Care Team (Late st Contact Info) Description 06/29/2024 1:00 PM EST Laboratory Laboratory, [facility] [address] [facility] [phone] [facility] [address] [facility] [place] [id number] Dyslipidemia, goal LDL below 100 Allergies No known active allergiesdocumented as of this encounter (statuses as of 06/29/2024) Medications COMPLETE MULTIVITAMIN/MINERAL PO LIQD 1 tab once daily Active Amoxicillin 500 MG Oral Capsule (Amoxil) Take 4 capsules 1 hour prior to any dental work 4 Cap 4 02/28/20 21 Active Probiotic Acidophilus Oral Capsule Take by mouth daily. 05/08/20 22 Active Aspirin 81 MG Oral Tablet Chewable Take 1 Tablet by mouth in the morning. 100 Tablet 05/08/20 22 Active Acetaminophen ER 650 MG Oral Tablet [...] meal of the day.. 90 Tablet 2 09/30/19 24 Active Metoprolol Tartrate 25 MG Oral Tablet (Lopressor)Indicatio ns:Paroxysmal atrial fibrillation (HCC),PSVT (paroxysmal supraventricular tachycardia) (HCC) TAKE 1/2 TABLET BY MOUTH EVERY DAY 45 Tablet 3 01/20/20 24 Active hydroCHLOROthiazide 12.5 MG Oral CapsuleIndications:H TN, goal below 140/90 TAKE ONE CAPSULE BY MOUTH IN THE MORNING 90 Capsule 1 02/18/20 24 Active Losartan Potassium 50 MG Oral Tablet (Cozaar)Indications: HTN, goal below 140/90 TAKE ONE TABLET BY MOUTH IN THE MORNING 90 Tablet 1 02/18/20 24 Active Sildenafil Citrate 100 MG Oral TabletIndications:Se xual function problem TAKE 1 TAB BY MOUTH 1-4 HOURS PRIOR TO INTERCOURSE.; NO MORE THAN 1 DOSE IN 24 HOURS 40 Tablet 1 03/12/20 24 Active Vitamin B-12 1000 MCG Oral Tablet (Cyanocobalamin)Sue cations:Memory loss,Vitamin B12 deficiency TAKE ONE TABLET EVERY DAY 90 Tablet 3 04/13/20 24 Active Divalproex Sodium ER 250 MG Oral Tablet Extended Release 24 Hour (Depakote ER) 1 tablet at night 30 Tablet 5 04/13/20 24 Active Atorvastatin Calcium 40 MG Oral Tablet (Lipitor)Indications :Dyslipidemia, goal LDL below 100 TAKE ONE TABLET BY MOUTH EVERY MORNING 90 Tablet 06/15/19 25 Active Tamsulosin HCl 0.4 MG Oral Capsule (Flomax)Indications: Decreased urine stream TAKE ONE CAPSULE BY MOUTH EVERY MORNING 90 Capsule 1 06/22/19 25 Active Clopidogrel Bisulfate 75 MG Oral Tablet (pLAVix) TAKE ONE TABLET BY MOUTH EVERY MORNING 90 Tablet 2 06/29/19 25 Active documented as of this encounter (statuses as of 06/29/2024) Active Problems Problem Noted Date Diagnosed Date Permanent atrial fibrillation 09/10/2023 S/P placement of cardiac pacemaker 08/18/2023 Heart block 08/18/2023 Dementia in Alzheimer's disease 08/18/2023 Age related osteoporosis 02/06/2023 BPH without obstruction/lower urinary tract symp toms 11/06/2022 Hemiplegia and hemiparesis f ollowing cerebral infarction affecting left non-dominant side 05/22/2022 Atherosclerosis of [place] co ronary artery without angina pectoris 05/22/2022 [...] No 01/30/2024 Does the household have a [facility] source of income? (Household - for ages [...] of Assessment Author No 02/20/2021 10:47 AM Madi Salgado RN documented as of this encounter Mental Status * Because of a physical, mental, or emotional condition, do you have serious difficulty concentrating, remembering, or making decisions? (5 years old or older) Answer Entry Date Author No 02/20/2021 10:47 AM DIDIERT Madi Ragsdale RN documented in this encounter Plan of Treatment Upcoming Encounters Date Type Department Care Team (Late st Contact Info) Description 09/03/2024 11:00 AM EDT Nurse Only Rheumatology [address] [place] [phone] [place], Nurse Rheum [address] [place] [phone] 09/10/2024 1:00 PM EDT Office Visit Family Medicine [address] [place] [phone] Raghav Lopez [address] [place] [phone] 10/19/2024 11:20 AM EDT Office Visit Neurology Marilyn Rosey [place] [address] [place] [address] Kevin Pederson, DO [address] [place] [address] 12/24/2024 11:30 AM EDT Office Visit Cardiology, [facility] [address] [place] [address] Abram Lehman, [address] [place] [address] 02/02/2025 2:00 PM EDT Nurse Only Ancillary [address] [place] [address] [place], Nurse Annual [address] [place] [address] 03/14/2025 2:00 PM EST Office Visit Rheumatology [address] [place] [phone] Edmund Banuelos CRNP [address] [place] [address] [place] [address] Pending Results Name Type Priority Associated Diagnoses Date /Time LIPID PANEL WITH DIRECT LDL IF TG IS HIGH Lab Routine Dyslipidemia, goal LDL below 100 06/29/2024 1:10 PM EST Health Maintenance Due Date Last Done Comments DTap/Tdap Vaccines (2 - Td or Tdap) 09/30/2022 09/30/2012, 02/07/2005, 08/28/2001 Influenza Vaccine (FLU shot) (#1) 2024 01/21/2023, 01/16/2022, 01/24/2021, Additional history exists COVID-19 Vaccine ( season) 2024 01/30/2024, 01/30/2024, 08/10/2021, Additional history exists Adult Wellness Visit 01/29/2025 01/30/2024, 01/21/2023, 01/16/2022, Additional history exists Depression Screening 01/29/2025 01/30/2024 GFR 06/02/2025 06/02/2024, /0 12/2024, 05/13/2024, Additional history exists DXA Scan 01/15/2026 01/16/2024, 01/16/2024 Albumin/Creatinine Ratio 02/06/2026 02/06/2023, 11/0 08/2021 Pneumococcal Vaccine: 50+ Years Completed 09/27/2014, 07/15/2012, 10/14/2002 Zoster Vaccines Completed 06/09/2019, 11/09, 10/12/2007 VITAMIN D LEVEL ONCE IN A LIFETIME-USE SMARTSET# [id number] Completed 06/03/2022 HPV (Gardasil) Vaccine Aged Out [...] this encounter Medical Devices Implanted Type Area Machine Puller Over Device Identifier Shelf Expiration Date Model / Serial / Lot Catheter 5fr Flow-Pacing - [id number] Implanted:Qty: 1 on 02/20/2021 at [facility] : ATRIAL [employer]RILLATION [id number] 06/11/2022 [id number] / / [id number] Valve Nelsy 3 Ultra 23mm - [id number] Implanted:Qty: 1 on 02/20/2021 by Kemar Navarrete MD at [facility] [employer] [id number] 08/04/2022 [id number] / / Theron Toric Intraocular Lens Implanted:Qty: 1 on 05/13/2023 by Shaun Olivarez MD at [facility] Right: Eye [employer] 08/10/2023 [id number] / [id number] Description:Melissa# [id number] - CDM Team [employer] One-Piece Hydrophobic Acrylic Toric Intraocular Lens Implanted:Qty: 1 on 05/27/2023 by Shaun Olivarez MD at [facility] Left: Eye [employer] 11/08/2024 [id number] / [id number] Device Watchman Flx 27mm - [id number] Implanted:Qty: 1 on 11/27/2023 by Annette Lewis IV, MD at [facility] [employer] : INTRV CARD [id number] 02/06/2026 [id number] / / [id number] documented as of this encounter Visit Diagnoses Diagnosis Dyslipidemia, goal LDL below 100 Other and unspecified hyperlipidemia documented in this encounter Advance Directives * Full Code [...] and were consensually agreed upon. Care Teams Room Manager Relationship Specialty Start Date End Date Gretta Man MD [address] [place] [address] [place] [phone] PCP - General Family Medicine 01/12/21 documented as of this encounter
[2024-07-03 14:31] LABS: iSTAT Creatinine 1.3 mg/dl (0.6-1.3); iSTAT Hemoglobin 10.2 g/dl (14.0-18.0); iSTAT Ionized Calcium 1.22 mmol/l (1.12-1.32); iSTAT Potassium 3.7 mmol/L (3.3-5.0)
--- NOTE | 2024-07-03 14:36 | CT Scan Report ---
INDICATION: Pain and injury. COMPARISON: CT from 03/30/2024. TECHNIQUE: Axial CT images of the head were obtained without IV contrast. Coronal and sagittal reformations were reviewed. FINDINGS/IMPRESSION: 1. Acute right temporal/parietal hemorrhage measuring 8.3 x 6.8 x 5.4 cm with small amount of adjacent edema and mass effect with uncal herniation to the left. 2. Positive for midline shift from right to left 0.8 cm. 3. Bilateral intraventricular hemorrhage with mild ventricular prominence. Effacement of the basal cisterns. 4. No mass evident. No other areas of hemorrhage. No acute large territorial infarction. 5. No depressed calvarial fracture. Report called to Dr. Rodriguez at 1131PM PST 07/03/2024. Electronically signed by Chinmay Cole 07-03-2024 2:35 PM
[2024-07-03] MEDS ORDERED: LORazepam 2 MG/1 ML VIAL IV PRN ×2 (14:37)
[2024-07-03] MEDS ORDERED: ONDANSETRON INJ 2 MG/ML 2 ML VIAL IV PRN (14:37)
[2024-07-03 14:48] LABS: Hematocrit (blood only) 31.8 % (42.0-52.0); Hemoglobin 10.4 g/dl (14.0-18.0); Mean Corpuscular Hemoglobin 31.6 pg (25.0-34.0); Mean Corpuscular Hgb Conc 32.7 g/dL (32.0-36.0); Mean Corpuscular Volume 96.7 fL (80.0-100.0); Mean Platelet Volume 9.7 fL (9.4-12.4); Platelet Count 280 K/uL (130-400); RDW Coefficient of Variation 12.2 % (11.5-14.5); RDW Standard Deviation 42.7 fL (36.4-46.3); Red Blood Count 3.29 M/uL (4.70-6.10); White Blood Count 26.19 K/ul (4.8-10.8)
[2024-07-03 14:56] LABS: BUN Creatinine Ratio 33.1 (10-20); Calcium 9.7 mg/dl (8.6-10.3); Creatinine Clr Calc Pharmacy 47.8 ml/min; Potassium 3.7 mmol/L (3.5-5.1)
[2024-07-03] MEDS: GLYCOPYRROLATE 0.2 MG/ML VIAL IV PRN (14:56)
[2024-07-03] MEDS: MoRPHine SULFATE 10 MG/ML CARP/VIAL IV STA (14:56)
[2024-07-03 15:07] LABS: Partial Thromboplastin Ratio 0.8; Partial Thromboplastin Time 22 Seconds (21-31); Prothrombin Time 10.9 Seconds (9.0-12.0)
[2024-07-03] MEDS: LORazepam 2 MG/1 ML VIAL IV SCH (15:07)
[2024-07-03] MEDS: MoRPHine SULF 100 MG/100 ML BAG IV SCH (15:10)
--- NOTE | 2024-07-03 15:11 | History & Physical Report ---
Date of Service July 03, 2024 Assessment & Plan (1) Hemorrhagic cerebrovascular accident (CVA): (2) Unresponsive: (3) CAD (coronary artery disease): (4) Hypertension: (5) Dyslipidemia: (6) History of transcatheter aortic valve replacement (TAVR): (7) Hx of aortic valve stenosis: (8) Chronic atrial fibrillation: Plan Pt with mild cognitive impairment versus vascular dementia, severe aortic stenosis s/p TAVR 02/20/2021, severe mitral regurg, nonobstructive CAD, HTN, HLD, complete heart block status post pacemaker November 2023, paroxysmal atrial fibrillation in the setting of anaplasmosis and rhabdo in 2017, developed into recurrent A-fib in May 2022, [id number] score of 6, recurrent falls therefore not on formal anticoagulation, history of stroke on aspirin and Plavix, history of hemorrhagic CVA in 1996 and residual chronic left-sided weakness who presents to the hospital after he was found unresponsive by family at home. Found to have new acute R temporal/parietal hemorrhage on admission. Pt was placed on Comfort Measures only. Acute Hemorrhagic CVA - Admit to med surg on Comfort Measures only - CT head reviewed showing : 1. Acute right temporal/parietal hemorrhage measuring 8.3 x 6.8 x 5.4 cm with small amount of adjacent edema and mass effect with uncal herniation to the left. 2. Positive for midline shift from right to left 0.8 cm. 3. Bilateral intraventricular hemorrhage with mild ventricular prominence. Effacement of the basal cisterns. - Dc all monitoring with vitals, cardiac - Cont comfort measures only - Atropine PO prn, scopolamine patch, MS 4 mg IV Q2H prn for work of breathing/pain - CM to assist with dc planning and arrangements - Can consider palliative consultation if does not pass overnight - Luis consulted for family support Lines: 1 PIV FEN/GI: Per comfort measures CODE: DNR/DNI Dispo: From home, likely to remain in the hospital on hospice care until time of . Poor prognosis. I spent a total of 76 minutes with greater than 50% of that time face to face with the patient, personally reviewing all current laboratories, imaging studies, past medication reconciliation, outpatient chart review, and discussion with specialists to collaborate care for the patient excluding time spent in the performance of separately billed services or time spent by another provider/QHP. Please see attending documentation for corrections and/or additions. History of Present Illness Chief Complaint: Unresponsive Primary Care Provider: Gretta Man MD This is a 89-year-old male with PMHx of mild cognitive impairment versus vascular dementia, severe aortic stenosis s/p TAVR 02/20/2021,, severe mitral re gurg, nonobstructive CAD, HTN, HLD, complete heart block status post pacemaker November 2023, paroxysmal atrial fibrillation in the setting of anaplasmosis and rhabdo in 2017, developed into recurrent A-fib in May 2022, [id number] score of 6, recurrent falls therefore not on formal anticoagulation, history of stroke on aspirin and Plavix, history of hemorrhagic CVA in 1996 and residual chronic left-sided weakness who presents to the hospital after he was found unresponsive by family at home. Pt typically drives in his truck up to his and his 's [place] to watch the animals, and was found unresponsive sometime this morning. He was not able to speak to them or move. 911 was called and EMS transported him to the ER here. Pt is found to have an acute right-sided hemorrhagic CVA measuring 8.3 x 6.8 x 5.4 cm with small amount of adjacent edema and mass effect with uncal herniation to the left. Positive for midline shift from right to left 0.8 cm. Bilateral intra ventricular hemorrhage with mild ventricular prominence. Effacement of basal cisterns. His family including , daughter and grandson are present at bedside and all support him and his wishes to be DNR/DNI and would like to place him on comfort measures only. This has been initiated in the ER, patient is currently under a Miriam hugger and has morphine drip running. Allergies Allergy/AdvReac Type Severity Reaction Status Date / Time No Known Allergies Allergy Verified 07/03/24 15:19 Home Medications Medication Instructions Recorded Confirmed Type hydrochlorothiazide 12.5 mg tablet 12.5 mg PO QAM 12/12/20 07/03/24 History amoxicillin 500 mg capsule 2,000 mg PO UD PRN Other 05/01/22 07/03/24 History losartan 50 mg tablet 50 mg PO QAM 05/01/22 07/03/24 History metoprolol tartrate 25 mg tablet 12.5 mg PO DAILY 05/01/22 07/03/24 History Lactobacillus acidophilus 250 10,000 mmu cells PO DAILY 07/03/24 07/03/24 History million cell capsule (Probiotic Acidophilus) acetaminophen 650 mg 650 mg PO Q8H PRN as directed 07/03/24 07/03/24 History tablet,extended release aspirin 81 mg chewable tablet 81 mg PO QAM 07/03/24 07/03/24 History atorvastatin 40 mg tablet 40 mg PO QAM 07/03/24 07/03/24 History cholecalciferol (vitamin D3) 25 25 mcg PO DAILY 07/03/24 07/03/24 History mcg (1,000 unit) tablet (Vitamin D3) clopidogrel 75 mg tablet 75 mg PO QAM 07/03/24 07/03/24 History cyanocobalamin (vitamin B-12) 1,000 mcg PO DAILY 07/03/24 07/03/24 History 1,000 mcg tablet denosumab 60 mg/mL subcutaneous 60 mg subcut .EVERY 6 MONTHS 07/03/24 07/03/24 History syringe (Prolia) divalproex 250 mg tablet,extended 250 mg PO HS 07/03/24 07/03/24 History release 24 hr donepezil 10 mg tablet 10 mg PO QAM 07/03/24 07/03/24 History etsrxuuh-foi-keopaf 5 mg-zeaxanth 1 cap PO DAILY 07/03/24 07/03/24 History 1 mg-bilberry 7.5 mg-herbal capsule (Macular Health Formula) multivitamin with minerals-iron 0 ml PO DAILY 07/03/24 07/03/24 History fumarate 9 mg iron/15 mL oral liquid (Complete Multivitamin-Multimineral) sildenafil 100 mg tablet 100 mg PO UD 07/03/24 07/03/24 History tamsulosin 0.4 mg capsule 0.4 mg PO QAM 07/03/24 07/03/24 History Past Med/Surg History Problem List (Updated 07/03/24 @ 16:52 by Charly Rodriguez MD) ICH (intracerebral hemorrhage) (Acute) Chronic atrial fibrillation Unresponsive Hemorrhagic cerebrovascular accident (CVA) Carotid stenosis Hx of aortic valve stenosis Dyslipidemia Hypertension CAD (coronary artery disease) MSSA (methicillin susceptible Staphylococcus aureus) septicemia Medical History History of transcatheter aortic valve replacement (TAVR) Intertrochanteric fracture of left femur Paroxysmal A-fib History of PSVT (paroxysmal supraventricular tachycardia) History of CVA (cerebrovascular accident) Surgical History History of carotid endarterectomy Family History Other Cancer Social History Smoking Status: Unknown if ever smoked Hx Alcohol Use: Yes Alcohol type: beer Alcohol Intake Frequency: Monthly or Less Hx Substance Use: No Preferred Language: Yakut Communication Ability: Effective President Required: No Beliefs That Will Affect Care: None Current Living Situation: Spouse Feels Safe at Home: Yes Assistive Devices: Denture - Upper and Denture - Lower Review of Systems Review of Systems: Unobtainable due to reduced consciousness Physical Exam Physical Exam: General: unresponsive to verbal or physical stimuli, cannot participate in any discussion or commands. Head: Normocephalic, atraumatic ENT: R pupil is dilated and 6 mm and left is constricted and 3 mm, unresponsive to light, no pharyngeal exudate, mucous membranes moist Chest: Clear to auscultation, on 15 L via NC, rapid breathing Cardiac: Sinus tachycardia, + LUDA, no JVD, normal peripheral pulses Abdominal: NABS x 4 quadrants, soft, nondistended, nontender to palpation, no rebound or guarding Extremities: Normal inspection, 1+ peripheral edema BLE, no erythema, calfs nontender to palpation Skin: no mottling effect of feet or hands Neuro: unresponsive, pupils non reactive to light Results & Data Results & Data Vital Signs (Past 12 Hours) Vital Signs Pulse Resp BP Pulse Ox O2 Del Method O2 Flow Rate 07/03/24 14:36 198/98 H 07/03/24 14:33 71 26 H 194/75 H 99 07/03/24 14:31 207/105 H 07/03/24 14:28 99 Non-rebreather 15 07/03/24 14:25 67 07/03/24 14:12 208/140 H 07/03/24 14:09 83 208/140 H 99 Room Air Laboratory Results 07/03/24 07/03/24 07/03/24 14:26 14:19 14:16 WBC 26.19 H RBC 3.29 L Hgb 10.4 L POC Hgb 10.2 L Hct 31.8 L POC Hct 30 L MCV 96.7 MCH 31.6 MCHC 32.7 RDW Std Deviation 42.7 RDW Coeff of Jt 12.2 Plt Count 280 MPV 9.7 PT 10.9 INR 1.0 APTT 22 PTT Ratio 0.8 POC Sodium 140 Sodium 139 POC Potassium 3.7 Potassium 3.7 POC Chloride 108 Chloride 105 Carbon Dioxide 25 POC Total CO2 23 L Anion Gap 9 POC Anion Gap 14.0 L POC BUN 33 H BUN 40 H Creatinine 1.21 POC Creatinine 1.3 Est Cr Clr Drug Dosing 47.8 eGFR 59.41 BUN/Creatinine Ratio 33.1 H Glucose 154 H POC Glucose (other) 154 H Calcium 9.7 POC Ioniz Calcium Luis 1.[address] 07/03/24 14:08 INDICATION: Pain and injury. COMPARISON: CT from 03/30/2024. TECHNIQUE: Axial CT images of the head were obtained without IV contrast. Coronal and sagittal reformations were reviewed. FINDINGS/IMPRESSION: 1. Acute right temporal/parietal hemorrhage measuring 8.3 x 6.8 x 5.4 cm with small amount of adjacent edema and mass effect with uncal herniation to the left. 2. Positive for midline shift from right to left 0.8 cm. 3. Bilateral intraventricular hemorrhage with mild ventricular prominence. Effacement of the basal cisterns. 4. No mass evident. No other areas of hemorrhage. No acute large territorial infarction. 5. No depressed calvarial fracture. Report called to Dr. Rodriguez at 1131PM PST 07/03/2024. Electronically signed by Chinmay Cole 07-03-2024 2:35 PM Code Status & VTE Plan Code Status DNR/DNI - Comfort measures per discussion with family at bedside Supervising Physician Co-Signing Physician Notes Pt seen and examined by me, care coordinated with Wilman Person PA-C, pls refer to her note above for further detail. Pt w/ hx of dementia, severe aortic stenosis s/p TAVR 02/20/2021, severe mitral regurg, nonobstructive CAD, HTN, HLD, complete heart block status post pacemaker November 2023, paroxysmal atrial fibrillation in the setting of anaplasmosis and rhabdo in 2017, history of stroke on aspirin and Plavix, history of hemorrhagic CVA in 1996 and residual chronic left-sided weakness who presents to the hospital after he was found unresponsive by family. CT head found to have new acute R temporal/parietal hemorrhage, edema and uncal herniation to the left. On exam, pt is lying in bed, unresponsive, right pupil larger than left one (left one constricted), unresponsive to light, tachycardic, lungs CTAB, abdomen soft, seems nontender, LE w/o edema. Pt not moving. Discussed in detail with family at the bedside and pt was placed on Comfort Measures in the ED. MD Haley
[2024-07-03 15:15] LABS: Basophils # (auto) 0.11 K/uL (0.00-0.20); Basophils % (auto) 0.4 %; Eosinophils # (auto) 0.34 K/uL (0.00-0.50); Eosinophils % (auto) 1.3 %; Immature Granulocytes # (auto) 0.16 K/uL (0.01-0.20); Immature Granulocytes % (auto) 0.6 %; Lymphocytes # (auto) 3.49 K/uL (1.20-3.40); Lymphocytes % (auto) 13.3 %; Monocytes # (auto) 1.57 K/uL (0.11-0.59); Neutrophils # (auto) 20.52 K/uL (1.40-6.50); Neutrophils % (auto) 78.4 %
[2024-07-03 15:29] VITALS: BP 170/96
[2024-07-03] MEDS: STAT IV Infusion **Titration per Protocol STA (16:41)
--- NOTE | 2024-07-03 16:52 | Emergency Department Note ---
History of Present Illness General Chief complaint: Unresponsive Stated complaint: UNRESPONSIVE Time Seen by Provider: 07/03/24 14:07 Source: EMS History of Present Illness Provider complaint: Unresponsive 83-year-old male presents emergency department [place] EMS reported that the patient was unable to follow commands his pupils were unequal and he was vomiting. Patient is on Plavix no other blood thinners. No reported trauma. Home Medications Medication Instructions Recorded Confirmed Type hydrochlorothiazide 12.5 mg tablet 12.5 mg PO QAM 12/12/20 07/03/24 History amoxicillin 500 mg capsule 2,000 mg PO UD PRN Other 05/01/22 07/03/24 History losartan 50 mg tablet 50 mg PO QAM 05/01/22 07/03/24 History metoprolol tartrate 25 mg tablet 12.5 mg PO DAILY 05/01/22 07/03/24 History Lactobacillus acidophilus 250 10,000 mmu cells PO DAILY 07/03/24 07/03/24 History million cell capsule (Probiotic Acidophilus) acetaminophen 650 mg 650 mg PO Q8H PRN as directed 07/03/24 07/03/24 History tablet,extended release aspirin 81 mg chewable tablet 81 mg PO QAM 07/03/24 07/03/24 History atorvastatin 40 mg tablet 40 mg PO QAM 07/03/24 07/03/24 History cholecalciferol (vitamin D3) 25 25 mcg PO DAILY 07/03/24 07/03/24 History mcg (1,000 unit) tablet (Vitamin D3) clopidogrel 75 mg tablet 75 mg PO QAM 07/03/24 07/03/24 History cyanocobalamin (vitamin B-12) 1,000 mcg PO DAILY 07/03/24 07/03/24 History 1,000 mcg tablet denosumab 60 mg/mL subcutaneous 60 mg subcut .EVERY 6 MONTHS 07/03/24 07/03/24 History syringe (Prolia) divalproex 250 mg tablet,extended 250 mg PO HS 07/03/24 07/03/24 History release 24 hr donepezil 10 mg tablet 10 mg PO QAM 07/03/24 07/03/24 History mqwyssnp-lid-rzlahq 5 mg-zeaxanth 1 cap PO DAILY 07/03/24 07/03/24 History 1 mg-bilberry 7.5 mg-herbal capsule (Macular Health Formula) multivitamin with minerals-iron 0 ml PO DAILY 07/03/24 07/03/24 History fumarate 9 mg iron/15 mL oral liquid (Complete Multivitamin-Multimineral) sildenafil 100 mg tablet 100 mg PO UD 07/03/24 07/03/24 History tamsulosin 0.4 mg capsule 0.4 mg PO QAM 07/03/24 07/03/24 History Allergies Allergy/AdvReac Type Severity Reaction Status Date / Time No Known Allergies Allergy Verified 07/03/24 15:19 Past Med/Surg History Problem List (Updated 07/03/24 @ 16:52 by Charly Rodriguez MD) ICH (intracerebral hemorrhage) (Acute) Chronic atrial fibrillation Unresponsive Hemorrhagic cerebrovascular accident (CVA) Carotid stenosis Hx of aortic valve stenosis Dyslipidemia Hypertension CAD (coronary artery disease) MSSA (methicillin susceptible Staphylococcus aureus) septicemia Medical History History of transcatheter aortic valve replacement (TAVR) Intertrochanteric fracture of left femur Paroxysmal A-fib History of PSVT (paroxysmal supraventricular tachycardia) History of CVA (cerebrovascular accident) Surgical History History of carotid endarterectomy Family History Other Cancer Social History Smoking Status: Unknown if ever smoked Hx Alcohol Use: Yes Alcohol type: beer Alcohol Intake Frequency: Monthly or Less Hx Substance Use: No Preferred Language: [place] Island[place] Communication Ability: Effective Order Administrator Required: No Beliefs That Will Affect Care: None Current Living Situation: Spouse Feels Safe at Home: Yes Assistive Devices: Denture - Upper and Denture - Lower Physical Exam Vital Signs Vital Signs - 24 hr 07/03/24 14:09 07/03/24 14:12 07/03/24 14:25 Temperature Pulse Rate 83 67 Pulse Rate from SpO2 Sensor Respiratory Rate Respiratory Effort / Characteristics Mechanically Ventilated Other Blood Pressure 208/140 H 208/140 H Blood Pressure Mean 162 168 Pulse Oximetry 99 Oxygen Delivery Method Room Air Oxygen Flow Rate Sepsis New/Unexplained Change in Mental Status Yes Sepsis Action Taken by Nursing No Action Required 07/03/24 14:28 07/03/24 14:31 07/03/24 14:33 Temperature Pulse Rate 71 Pulse Rate from SpO2 Sensor 72 Respiratory Rate 26 H Respiratory Effort / Characteristics Blood Pressure 207/105 H 194/75 H Blood Pressure Mean 139 114 Pulse Oximetry 99 99 Oxygen Delivery Method Non-rebreather Oxygen Flow Rate 15 Sepsis New/Unexplained Change in Mental Status Sepsis Action Taken by Nursing 07/03/24 14:36 07/03/24 15:00 07/03/24 15:20 Temperature 34.7 C L Pulse Rate 108 H Pulse Rate from SpO2 Sensor 113 H Respiratory Rate 25 H Respiratory Effort / Characteristics Blood Pressure 198/98 H 193/109 H 170/96 H Blood Pressure Mean 110 137 128 Pulse Oximetry 95 Oxygen Delivery Method Nasal Cannula Oxygen Flow Rate 15 Sepsis New/Unexplained Change in Mental Status Sepsis Action Taken by Nursing 07/03/24 15:21 07/03/24 15:42 Temperature 34.7 C L 34.7 C L Pulse Rate 97 H 99 H Pulse Rate from SpO2 Sensor 104 H 107 H Respiratory Rate 31 H 33 H Respiratory Effort / Characteristics Blood Pressure Blood Pressure Mean Pulse Oximetry 94 88 L Oxygen Delivery Method Nasal Cannula Nasal Cannula Oxygen Flow Rate 15 6 Sepsis New/Unexplained Change in Mental Status Sepsis Action Taken by Nursing Physical Exam GENERAL: Ill-appearing HENT: Exam performed. - Head: Normocephalic and atraumatic. EYES: Left pupil is fixed and dilated CV: Tachycardic rate, regular rhythm, normal heart sounds and intact distal pulses. There is no peripheral edema. Palpable radial pulses bue. PULM/CHEST: Rhonchi bilaterally. NEURO:GCS eye subscore is 1. GCS verbal subscore is 1. GCS motor subscore is 4 Course Course 1407: The patient was evaluated in room B1. A complete history and physical exam was performed Administered Medications Glycopyrrolate (Glycopyrrolate 0.2 Mg/Ml Vial) 0.4 mg IV Q4H PRN PRN Reason: Rattling Secretions or Pulm Congestion Stop: 08/02/24 14:36 Last Admin: 07/03/24 14:56 Dose: 0.4 mg Documented By: BS Morphine Sulfate (Morphine Sulf) 100 mg in 100 mls @ 1 mls/hr IV .Q96H [facility]; Protocol Stop: 07/17/24 14:44 Last Admin: 07/03/24 15:10 Dose: 1 mg/hr, 1 mls/hr Documented By: ARNOLD Co-signed By: ANGELA Lorazepam (Lorazepam 2 Mg/1 Ml Vial) 0.5 mg IV Q8H BRANDY Stop: 08/02/24 14:44 Last Admin: 07/03/24 15:07 Dose: 0.5 mg Documented By: ARNOLD Discontinued Medications Miscellaneous (Stat Iv Infusion Titration Per Protocol) 1 each N/A NOW STA Stop: 07/03/24 14:38 Last Admin: 07/03/24 16:41 Dose: Not Given Documented By: ANGELA Morphine Sulfate (Morphine Sulfate 10 Mg/Ml Carp/Vial) 8 mg IV NOW STA Stop: 07/03/24 14:46 Last Admin: 07/03/24 14:56 Dose: 8 mg Documented By: ARNOLD Medical Decision Making Laboratory Data Attestation: I reviewed the patient's lab results. 07/03/24 14:26 07/03/24 14:16 Lab Results 07/03/24 07/03/24 07/03/24 Range/Units 14:16 14:19 14:26 WBC 26.19 H (4.8-10.8) K/ul RBC 3.29 L (4.70-6.10) M/uL Hgb 10.4 L (14.0-18.0) g/dl POC Hgb 10.2 L (14.0-18.0) g/dl Hct 31.8 L (42.0-52.0) % POC Hct 30 L (42-52) % MCV 96.7 (80.0-100.0) fL MCH 31.6 (25.0-34.0) pg MCHC 32.7 (32.0-36.0) g/dL RDW Std Deviation 42.7 (36.4-46.3) fL RDW Coeff of Jt 12.2 (11.5-14.5) % Plt Count 280 (130-400) K/uL MPV 9.7 (9.4-12.4) fL Immature Gran % (Auto) 0.6 % Neut % (Auto) 78.4 % Lymph % (Auto) 13.3 % [place] % (Auto) 6.0 % Eos % (Auto) 1.3 % Baso % (Auto) 0.4 % Neut # (Auto) 20.52 H (1.40-6.50) K/uL Lymph # (Auto) 3.49 H (1.20-3.40) K/uL [place] # (Auto) 1.57 H (0.11-0.59) K/uL Eos # (Auto) 0.34 (0.00-0.50) K/uL Baso # (Auto) 0.11 (0.00-0.20) K/uL Immature Gran # (Auto) 0.16 (0.01-0.20) K/uL PT 10.9 (9.0-12.0) Seconds INR 1.0 (0.9-1.1) APTT 22 (21-31) Seconds PTT Ratio 0.8 POC Sodium 140 (135-144) mmol/L Sodium 139 (136-145) mmol/L POC Potassium 3.7 (3.3-5.0) mmol/L Potassium 3.7 (3.5-5.1) mmol/L POC Chloride 108 (101-112) mmol/L Chloride 105 (98-107) mmol/L Carbon Dioxide 25 (21-32) mmol/L POC Total CO2 23 L (24-31) mmol/L Anion Gap 9 (3-11) POC Anion Gap 14.0 L (16-25) mmol/L POC BUN 33 H (7-18) mg/dl BUN 40 H (6-23) mg/dl Creatinine 1.21 (0.6-1.4) mg/dl POC Creatinine 1.3 (0.6-1.3) mg/dl Est Cr Clr Drug Dosing 47.8 ml/min eGFR 59.41 BUN/Creatinine Ratio 33.1 H (10-20) Glucose 154 H (70-99(Fasting)) mg/dl POC Glucose (other) 154 H (70-99) mg/dl Calcium 9.7 (8.6-10.3) mg/dl POC Ioniz Calcium Luis 1.22 (1.12-1.32) mmol/l Imaging Data Attestation: I personally reviewed and interpreted this imaging study as follows: My Impression: CT head:Large right-sided ICH with midline shift and uncal herniation. Radiologist's Impression: Head CT 07/03/24 14:08 INDICATION: Pain and injury. COMPARISON: CT from 03/30/2024. TECHNIQUE: Axial CT images of the head were obtained without IV contrast. Coronal and sagittal reformations were reviewed. FINDINGS/IMPRESSION: 1. Acute right temporal/parietal hemorrhage measuring 8.3 x 6.8 x 5.4 cm with small amount of adjacent edema and mass effect with uncal herniation to the left. 2. Positive for midline shift from right to left 0.8 cm. 3. Bilateral intraventricular hemorrhage with mild ventricular prominence. Effacement of the basal cisterns. 4. No mass evident. No other areas of hemorrhage. No acute large territorial infarction. 5. No depressed calvarial fracture. Report called to Dr. Rodriguez at 1131PM PST 07/03/2024. Electronically signed by Chinmay Cole 07-03-2024 2:35 PM MDM Narrative External medical records reviewed. Patient is DNR/DNI Patient was taken to CT and it revealed large intracerebral hemorrhage with midline shift uncal herniation. I discussed the prognosis with the and she confirmed that the patient is DNR/DNI and made the difficult decision to make the patient comfort measures only. She stated that the patient did not want to be on a ventilator or have compressions performed or have any other heroic measures performed. [facility] comfort measures. Impression & Plan ICH (intracerebral hemorrhage) Discharge Plan Visit Data Chief Complaint: Unresponsive Stated Complaint: UNRESPONSIVE ED Provider: Charly Rodriguez Discharge Problem: ICH (intracerebral hemorrhage) Patient Disposition: Admitted As Inpatient Forms Stand Alone Forms: My [facility] Prescriptions Prescriptions: No Action hydrochlorothiazide 12.5 mg Tablet 12.5 mg PO QAM losartan 50 mg tablet 50 mg PO QAM amoxicillin 500 mg Capsule 2,000 mg PO UD PRN (Reason: Other) Rx Instructions: Take 1 hr prior to dental procedures metoprolol tartrate 25 mg tablet 12.5 mg PO DAILY clopidogrel 75 mg tablet 75 mg PO QAM tamsulosin 0.4 mg capsule 0.4 mg PO QAM atorvastatin 40 mg tablet 40 mg PO QAM donepezil 10 mg tablet 10 mg PO QAM Rx Instructions: take with largest meal of day cyanocobalamin (vitamin B-12) 1,000 mcg tablet 1,000 mcg PO DAILY divalproex 250 mg tablet extended release 24 hr 250 mg PO HS Probiotic Acidophilus 250 million cell Capsule 10,000 mmu cells PO DAILY sildenafil 100 mg Tablet 100 mg PO UD MDD 1 dose Rx Instructions: take 1 tab by mouth 1-4 hours prior to intercourse aspirin 81 mg Tablet,Chewable 81 mg PO QAM cholecalciferol (vitamin D3) [Vitamin D3] 25 mcg (1,000 unit) Tablet 25 mcg PO DAILY Macular Health Formula 5-1-7.5 mg Capsule 1 cap PO DAILY acetaminophen 650 mg Tablet Extended Release 650 mg PO Q8H PRN (Reason: as directed) Rx Instructions: take with advil Prolia 60 mg/mL Syringe 60 mg SUBCUT .EVERY 6 MONTHS Complete Multivitamin-Mineral 9 mg iron/15 mL Liquid 0 ml PO DAILY Rx Instructions: no dose given in [facility] record Referrals Referrals: Gretta Man MD [Primary Care Provider] - Discharge Problem: ICH (intracerebral hemorrhage) Qualifiers: Intracerebral hemorrhage etiology: nontraumatic Laterality: unspecified laterality
[2024-07-03 18:17] VITALS: TEMP 97
[2024-07-03] MEDS: HYOSCYAMINE SULFATE 0.125 MG TAB SL PRN (21:26)
[2024-07-04] MEDS: ATROPINE SULFATE 1% OP SOLN 5 ML BTL SL PRN (00:14)
--- NOTE | 2024-07-04 08:05 | Hospitalist Progress Note ---
Date of Service July 04, 2024 Assessment & Plan (1) Hemorrhagic cerebrovascular accident (CVA): (2) Unresponsive: (3) CAD (coronary artery disease): (4) Hypertension: (5) Dyslipidemia: (6) History of transcatheter aortic valve replacement (TAVR): (7) Hx of aortic valve stenosis: (8) Chronic atrial fibrillation: Plan Pt with mild cognitive impairment versus vascular dementia, severe aortic stenosis s/p TAVR 02/20/2021, severe mitral regurg, nonobstructive CAD, HTN, HLD, complete heart block status post pacemaker November 2023, paroxysmal atrial fibrillation in the setting of anaplasmosis and rhabdo in 2017, developed into recurrent A-fib in May 2022, [id number] score of 6, recurrent falls therefore not on formal anticoagulation, history of stroke on aspirin and Plavix, history of hemorrhagic CVA in 1996 and residual chronic left-sided weakness who presents to the hospital after he was found unresponsive by family at home. Found to have new acute R temporal/parietal hemorrhage on admission. Pt was placed on Comfort Measures only. Acute Hemorrhagic CVA Admit to med surg on Comfort Measures only ; All scheduled vitals and lab work discontinued. CT head reviewed showing : 1. Acute right temporal/parietal hemorrhage measuring 8.3 x 6.8 x 5.4 cm with small amount of adjacent edema and mass effect with uncal herniation to the left . 2. Positive for midline shift from right to left 0.8 cm. 3. Bilateral intraventricular hemorrhage with mild ventricular prominence. Morphine gtt infusing; increased to 2mg/hour Glycopyrrolate IV PRN for audible secretions Ativan PRN for agitation Pt has a R upper chest wall pacemaker for bradycardia; magnet applied for deactivation. [id number] [place] consulted for family support Life expectancy hours to a day or two. Expected to in hospital. Disposition: CODE: DNR/DNI I spent a total of 56 minutes coordinating, documenting, and providing care for this patient excluding time spent in the performance of separately billed services or time spent by another provider/QHP. Admission and Anticipated Discharge Date Admission Date: July 03, 2024 Subjective Pt lying flat in his hospital bed obtunded with furrowed brow with tactile stimulation and using diaphragmatic muscles for breathing. Patient with audible secretions. Family, and daughter at bedside. Discussed the dying process with discussion on normal and expected symptoms to observe (breathing changes, skin changes, secretions). indicated that patient had a pacemaker; see below. Life expectancy hours to a few days. See below. Review of Systems Review of Systems: Unobtainable due to cognitive status Physical Exam Physical Exam: Neuro: obtunded. Pt with furrowed brow with tactile stimulation. HEENT: head normocephalic, dry mucus membranes. L pupil fixed and dilated size 5mm. CV: S1/S2 pacemaker right upper chest wall. Resp: Lungs decreased in all lung jerry. On 2LNC. GI: Abdomen S/NT/ND, Ax4 bowel sounds, (-) CVA tenderness Musculoskeletal: 5/5 B/L UE strength, 5/5 B/L LE strength. No gait disturbance Skin: (-) mottling noted yet. Skin warm to touch. Psych: euthymic mood Results & Data Results & Data Vital Signs (Past 12 Hours) Vital Signs Resp 07/04/24 07:40 20 Laboratory Results Short CBC 07/03/24 Range/Units 14:26 WBC 26.19 H (4.8-10.8) K/ul Hgb 10.4 L (14.0-18.0) g/dl Hct 31.8 L (42.0-52.0) % Plt Count 280 (130-400) K/uL BMP 07/03/24 14:16 Sodium 139 Potassium 3.7 Chloride 105 Carbon Dioxide 25 BUN 40 H Creatinine 1.21 Glucose 154 H Calcium 9.7
[2024-07-04 10:10] VITALS: PULSE 100; O2SAT 93
--- NOTE | 2024-07-04 10:24 | Electrocardiogram Report ---
Test Reason : Blood Pressure : */* mmHG Vent. Rate : 74 BPM Atrial Rate : * BPM P-R Int : * ms QRS Dur : 120 ms QT Int : 420 ms P-R-T Axes : * 69 81 degrees QTcB Int : 466 ms Atrial fibrillation with premature ventricular or aberrantly conducted complexes Septal infarct , age undetermined U-waves present; r/o electrolyte imbalance Abnormal ECG When compared with ECG of 02-Jul-2023 12:16, No significant change Confirmed by Fantasma Sehlley ([id number]) on 07/04/2024 10:23:49 AM Referred By: REFERRED SELF Confirmed By: Fantasma Shelley
[2024-07-04] MEDS: MoRPHine BOLUS from BAG IV PRN (11:39)
[2024-07-04] MEDS: ATROPINE SULFATE 1% OP SOLN 5 ML BTL SL SCH (15:36)
[2024-07-05 01:53] VITALS: RESP 14
[2024-07-05] MEDS: SCOPOLAMINE 1 MG/72 HR TDSY PATCH TD SCH (04:42)
--- NOTE | 2024-07-05 07:06 | Hospitalist Progress Note ---
Date of Service July 05, 2024 Assessment & Plan (1) Hemorrhagic cerebrovascular accident (CVA): (2) Unresponsive: (3) CAD (coronary artery disease): (4) Hypertension: (5) Dyslipidemia: (6) History of transcatheter aortic valve replacement (TAVR): (7) Hx of aortic valve stenosis: (8) Chronic atrial fibrillation: Plan Pt with mild cognitive impairment versus vascular dementia, severe aortic stenosis s/p TAVR 02/20/2021, severe mitral regurg, nonobstructive CAD, HTN, HLD, complete heart block status post pacemaker November 2023, paroxysmal atrial fibrillation in the setting of anaplasmosis and rhabdo in 2017, developed into recurrent A-fib in May 2022, [id number] score of 6, recurrent falls therefore not on formal anticoagulation, history of stroke on aspirin and Plavix, history of hemorrhagic CVA in 1996 and residual chronic left-sided weakness who presents to the hospital after he was found unresponsive by family at home. Found to have new acute R temporal/parietal hemorrhage on admission. Pt was placed on Comfort Measures only. Acute Hemorrhagic CVA Admit to med surg on Comfort Measures only ; All scheduled vitals and lab work discontinued. CT head reviewed showing : 1. Acute right temporal/parietal hemorrhage measuring 8.3 x 6.8 x 5.4 cm with small amount of adjacent edema and mass effect with uncal herniation to the left . 2. Positive for midline shift from right to left 0.8 cm. 3. Bilateral intraventricular hemorrhage with mild ventricular prominence. Morphine gtt infusing; increased to 2mg/hour Glycopyrrolate IV PRN for audible secretions Ativan PRN for agitation Pt has a R upper chest wall pacemaker for bradycardia; magnet applied for deactivation. [id number] [place] consulted for family support Life expectancy hours to a day or two. Expected to in hospital. Disposition: CODE: DNR/DNI I spent a total of 56 minutes coordinating, documenting, and providing care for this patient excluding time spent in the performance of separately billed services or time spent by another provider/QHP. Admission and Anticipated Discharge Date Admission Date: July 03, 2024 Results & Data Results & Data Vital Signs (Past 12 Hours) Vital Signs Resp O2 Del Method O2 Flow Rate 07/05/24 01:53 14 07/05/24 00:20 10 L 07/04/24 19:45 Nasal Cannula 2
--- NOTE | 2024-07-05 07:42 | Discharge Summary ---
Discharge Summary Date of Service July 05, 2024 Principal Dx & Hospital Course #1 = Principal Diagnosis (1) Unresponsive: (2) Intracranial hemorrhage: (3) Hemorrhagic cerebrovascular accident (CVA): (4) Comfort measures only status: Jose Martin Dougherty is an 83y/o M with PMHx significant for mild cognitive impairment vs vascular dementia, severe AR s/p TAVR in February 2021, severe MR, nonobstructive CAD, HTN, HLD, CHB s/p pacemaker placement in November 2023, paroxysmal A-fib ISO anaplasmosis and rhabdomyolysis in 2017 with development of recurrent A-fib in May 2022 not currently on formal anticoagulation 2/2 recurrent falls, history of CVA on DAPT and 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 Head CT revealed an acute right temporal/par ietal hemorrhage measuring 8.3 x 6.8 x 5.4cm with small amount of adjacent edema and mass effect with uncal herniation to the left, positive midline shift from right to left 0.8cm, biventricular intraventricular hemorrhage with mild ventricular prominence and effacement of the basal cisterns. 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 Patient pronounced on 07/05/2024 at 07:37. Family present at bedside at time pronouncement including patient's , Kyung, and daughter, Hanny. Patient seen in collaboration with Dr. Knowles. Please see addendum. I spent a total of 40 minutes coordinating, documenting, and providing care for this patient excluding time spent in the performance of separately billed services or time spent by another provider/QHP. This included personally reviewing all current laboratories and imaging studies, medical reconciliation, outpatient chart review and discussion with specialists. This chart was completed in part utilizing Speech Voice Recognition Software. Grammatical errors, random word insertions, pronoun errors, and incomplete sentences are an occasional consequence of this system due to software limitations, ambient noise, and hardware issues. Any formal questions or concerns about the content, text, or information contained within the body of this dictation should be directly addressed to the provider for clarification. Notes For Next Care Provider Medication Changes From Visit N/A Admission HPI Per Admitting Provider This is a 89-year-old male with PMHx of mild cognitive impairment versus vascular dementia, severe aortic stenosis s/p TAVR 02/20/2021,, severe mitral regurg, nonobstructive CAD, HTN, HLD, complete heart block status post pacemaker November 2023, paroxysmal atrial fibrillation in the setting of anaplasmosis and rhabdo in 2017, developed into recurrent A-fib in May 2022, [id number] score of 6, recurrent falls therefore not on formal anticoagulation, history of stroke on aspirin and Plavix, history of hemorrhagic CVA in 1996 and residual chronic left-sided weakness who presents to the hospital after he was found unresponsive by family at home. 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 He was not able to speak to them or move. 911 was called and EMS transported him to the ER here. Pt is found to have an acute right-sided hemorrhagic CVA measuring 8.3 x 6.8 x 5.4 cm with small amount of adjacent edema and mass effect with uncal herniation to the left. Positive for midline shift from right to left 0.8 cm. Bilateral intra ventricular hemorrhage with mild ventricular prominence. Effacement of basal cisterns. His family including , daughter and grandson are present at bedside and all support him and his wishes to be DNR/DNI and would like to place him on comfort measures only. This has been initiated in the ER, patient is currently under a Miriam hugger and has morphine drip running. Admission Exam Per Admitting Provider General: unresponsive to verbal or physical stimuli, cannot participate in any discussion or commands. Head: Normocephalic, atraumatic ENT: R pupil is dilated and 6 mm and left is constricted and 3 mm, unresponsive to light, no pharyngeal exudate, mucous membranes moist Chest: Clear to auscultation, on 15 L via NC, rapid breathing Cardiac: Sinus tachycardia, + LUDA, no JVD, normal peripheral pulses Abdominal: NABS x 4 quadrants, soft, nondistended, nontender to palpation, no rebound or guarding Extremities: Normal inspection, 1+ peripheral edema BLE, no erythema, calfs nontender to palpation Skin: no mottling effect of feet or hands Neuro: unresponsive, pupils non reactive to light Discharge Exam On exam the patient was unresponsive, no spontaneous movement was observed. There is no response to painful stimulus. No audible breath or heart sounds for greater than 1 minute. No palpable pulse for greater than 1 minute. Pupils are fixed, dilated and unreactive to light. Updated Medication List Medication Instructions Recorded Confirmed Type hydrochlorothiazide 12.5 mg tablet 12.5 mg PO QAM 12/12/20 07/03/24 History amoxicillin 500 mg capsule 2,000 mg PO UD PRN Other 05/01/22 07/03/24 History losartan 50 mg tablet 50 mg PO QAM 05/01/22 07/03/24 History metoprolol tartrate 25 mg tablet 12.5 mg PO DAILY 05/01/22 07/03/24 History Lactobacillus acidophilus 250 10,000 mmu cells PO DAILY 07/03/24 07/03/24 History million cell capsule (Probiotic Acidophilus) acetaminophen 650 mg 650 mg PO Q8H PRN as directed 07/03/24 07/03/24 History tablet,extended release aspirin 81 mg chewable tablet 81 mg PO QAM 07/03/24 07/03/24 History atorvastatin 40 mg tablet 40 mg PO QAM 07/03/24 07/03/24 History cholecalciferol (vitamin D3) 25 25 mcg PO DAILY 07/03/24 07/03/24 History mcg (1,000 unit) tablet (Vitamin D3) clopidogrel 75 mg tablet 75 mg PO QAM 07/03/24 07/03/24 History cyanocobalamin (vitamin B-12) 1,000 mcg PO DAILY 07/03/24 07/03/24 History 1,000 mcg tablet denosumab 60 mg/mL subcutaneous 60 mg subcut .EVERY 6 MONTHS 07/03/24 07/03/24 History syringe (Prolia) divalproex 250 mg tablet,extended 250 mg PO HS 07/03/24 07/03/24 History release 24 hr donepezil 10 mg tablet 10 mg PO QAM 07/03/24 07/03/24 History snnbimvx-cjt-nkbvhl 5 mg-zeaxanth 1 cap PO DAILY 07/03/24 07/03/24 History 1 mg-bilberry 7.5 mg-herbal capsule (Macular Health Formula) multivitamin with minerals-iron 0 ml PO DAILY 07/03/24 07/03/24 History fumarate 9 mg iron/15 mL oral liquid (Complete Multivitamin-Multimineral) sildenafil 100 mg tablet 100 mg PO UD 07/03/24 07/03/24 History tamsulosin 0.4 mg capsule 0.4 mg PO QAM 07/03/24 07/03/24 History Hospital Stay Data Consultations 07/03/24 14:46 ED Decision to Admit Stat Diagnostic Imagining Performed 07/03/24 14:08 CT head/brain wo con Stat Total Time Total Time Spent Total Time Spent (In Minutes): 40
--- NOTE | 2024-07-05 07:53 | Death Pronouncement Note ---
Date of Service July 05, 2024 Pronouncement Note Admission Date Admission Date: July 03, 2024 Date and Time of Date of : 07/05/24 Time of : 07:37 Contributing Factors (1) Hemorrhagic cerebrovascular accident (CVA): (2) ICH (intracerebral hemorrhage): (3) Chronic atrial fibrillation: (4) CAD (coronary artery disease): Hospital Course Hospital Course: Jose Martin Dougherty is an 83y/o M with PMHx significant for mild cognitive impairment vs vascular dementia, severe AR s/p TAVR in February 2021, severe MR, nonobstructive CAD, HTN, HLD, CHB s/p pacemaker placement in November 2023, paroxysmal A-fib ISO anaplasmosis and rhabdomyolysis in 2017 with development of recurrent A-fib in May 2022 not currently on formal anticoagulation 2/2 recurrent falls, history of CVA on DAPT and 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 Head CT revealed an acute right temporal/parietal hemorrhage measuring 8.3 x 6.8 x 5.4cm with small amount of adjacent edema and mass effect with uncal herniation to the left, positive midline shift from right to left 0.8cm, biventricular intraventricular hemorrhage with mild ventricular prominence and effacement of the basal cist erns. 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 Patient pronounced on 07/05/2024 at 07:37. On exam the patient was unresponsive, no spontaneous movement was observed. There was no response to painful stimulus. No audible breath or heart sounds for greater than 1 minute. No palpable pulse for greater than 1 minute. Pupils were fixed, dilated and unreactive to light. Family present at bedside at time pronouncement including patient's , Kyung, and daughter, Hanny. Additional Data Confirmation of : no pulse, no respirations, no heart sounds and pupils fixed and dilated Family: at bedside (, daughter) Additional persons at bedside: other (RN) Attending/PCP notified?: Yes Attending physician: Sharri Knowles MD
[2024-07-05] MEDS: CHECK SCOPOLAMINE PATCH PLACEMENT SCH (08:29)
== END 2024-07-05 10:50 | disposition expired | DRG 64 ==
LOC: ED 14:05 → 3E 18:08 → SUATTDRO 18:08 → 3E 19:36
DX: Z86.79 Personal history of other diseases of the circulatory system; Z95.2 Presence of prosthetic heart valve; Z79.82 Long term (current) use of aspirin; I69.354 Hemiplegia and hemiparesis following cerebral infarction affecting left non-dominant side; E78.5 Hyperlipidemia, unspecified; Z79.899 Other long term (current) drug therapy; Z95.0 Presence of cardiac pacemaker; I25.10 Atherosclerotic heart disease of native coronary artery without angina pectoris; Z79.02 Long term (current) use of antithrombotics/antiplatelets; I61.2 Nontraumatic intracerebral hemorrhage in hemisphere, unspecified; G93.5 Compression of brain; Z91.81 History of falling; I48.20 Chronic atrial fibrillation, unspecified; I10 Essential (primary) hypertension; Z66 Do not resuscitate; Z51.5 Encounter for palliative care; G93.6 Cerebral edema